=== PATIENT | female | born 1980 | race African-American/Black ===

== ENCOUNTER 2022-10-28 10:16 | Outpatient (OUT) | payer OTHER, SELFPAY ==
--- NOTE | 2022-10-28 10:23 | ECG_ITS ---
[facility] Test Date: 2022-10-28 Pat Name: Amanda Araiza Department: Room: - Gender: Female Olive Picker: : [id number] Requested By: JORGE DODD Order Number: [id number] Reading MD: VICKY ANTONIO Measurements Intervals Concan Rate: 63 P: 55 GA: 164 QRS: 37 QRSD: 82 T: 14 QT: 393 QTc: 404 Interpretive Statements SINUS RHYTHM No previous ECG available for comparison Electronically Signed On 10-29-2022 7:11:32 EDT by VICKY ANTONIO
--- NOTE | 2022-10-28 10:58 | P.GSHP_ITS ---
History of Present Illness History of Present Illness Chief complaint: plantar fasciitis right Narrative: Patient presents for preadmission testing. The patient reports a six-month history of right heel pain without specific trauma or injury. She states she has done home stretching, inserts for her shoes, and an injection which provides no relief. She states her pain is worse after sitting for long periods of time and then standing.She will occasionally take Motrin or Tylenol to attempt pain relief. She denies numbness, tingling, weakness, or any other complaints. Review of Systems ROS Narrative REVIEW OF SYSTEMS: Negative except as stated in HPI, ten or more systems reviewed. Constitutional: No fever , chills, weakness ENT: No sore throat or epistaxis Cardiovascular: No edema, chest pain, palpitations, or activity intolerance Respiratory: No shortness of breath, cough, or wheezing Gastrointestinal: No abdominal pain, constipation, diarrhea, or vomiting Genitourinary: No dysuria or hematuria Neurological: No numbness, tingling, weakness, or headache Psychiatric: No mood changes PFSH PFSH Medical History (Updated 10/28/22 @ 10:42 by Mariola Holcomb NP) Surgical History (Updated 10/28/22 @ 10:42 by Mariola Holcomb NP) Family History (Updated 10/28/22 @ 10:42 by Mariola Holcomb NP) Other Clear cell sarcoma Family history of breast cancer Family history of diabetes mellitus Family history of heart disease Family history of hypertension Family history of lung cancer Family history of prostate cancer Social History (Updated 10/28/22 @ 10:38 by Mariola Holcomb NP) Within the past year, how often did you have a drink containing alcohol: 2-4 times a month Smoking status: Never smoker Non-prescribed substance use: denies use 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 Highest level of school completed/degree received: high school graduate Meds Home Medications and Allergies Allergies Allergy/AdvReac Type Severity Reaction Status Date / Time No Known Drug Allergies Allergy Verified 10/28/22 10:36 Exam Narrative Exam Narrative: Constitutional: Awake, alert, comfortable, well-appearing, nontoxic, interactive, vital signs as charted Head: Normocephalic, atraumatic Eyes: Conjunctiva and lids normal to inspection, pupils normal ENT: Tympanic membranes pearly dailey, nonerythematous, noninjected, naris patent, posterior oropharynx clear, oral mucosa moist Neck: Supple, normal appearance, normal range of motion, no meningeal signs, no lymphadenopathy Respiratory: No respiratory distress, breath sounds clear Cardiovascular: Regular rate and rhythm, strong and regular heart tones Abdomen: Nontender, normal bowel sounds, soft, no CVA tenderness Musculoskeletal: Normal gait, no swelling or edema Skin: No rashes or induration, no lesions, only visible skin inspected Neuro: No neurological deficits, normal sensation Psychiatric: Oriented ?3, normal affect Assessment and Plan Assessment and Plan (1) Equinus contracture of right ankle: (2) Plantar fasciitis of right foot: Plan Right endoscopic plantar fasciotomy and gastrocnemius recession scheduled with Dr. Leon 11/08/2022.
[2022-10-28 11:34] LABS: Anion Gap 11.8; BUN Creatinine Ratio 14.3; Calcium 8.5 mg/dL (8.5-10.1); Carbon Dioxide 29.1 mmol/L (21.0-32.0); Chloride 105 mmol/L (98-107); Estimated GFR (African America >60 (>=60); Estimated GFR (Non-African Ame >60 (>=60); Glucose 95 mg/dL (74-106); Potassium 3.9 mmol/L (3.5-5.1); Sodium 142 mmol/L (136-145)
== END 2022-10-28 10:17 | disposition home or self-care (01) ==
PROVIDERS: Podiatrist Foot & Ankle Surgery
DX: Z01.812 Encounter for preprocedural laboratory examination (principal); Z01.818 Encounter for other preprocedural examination; Z01.810 Encounter for preprocedural cardiovascular examination; M72.2 Plantar fascial fibromatosis; M24.571 Contracture, right ankle; I10 Essential (primary) hypertension
CPT/HCPCS: 36415; 80048; 93005; G0463

== ENCOUNTER 2022-11-08 06:28 | Day surgery (SDC) | payer OTHER, SELFPAY ==
[2022-10-28 10:38] VITALS: BP 118/87; PULSE 69; RESP 14; TEMP 36.6; O2SAT 100; BMI 43.3
[2022-11-08] VITALS (14 sets, daily range): BP systolic 104–141; BP diastolic 66–89; PULSE 62–97; RESP 13–28; TEMP 36.1–36.4; O2SAT 98–100; BMI 43.2
[2022-11-08 06:51] LABS: Glucometer 95 mg/dL (74-106)
[2022-11-08] MEDS: LACTATED RINGER'S SOLUTION 1,000 ML 50 ML IV (07:09)
[2022-11-08] MEDS: CEFAZOLIN SODIUM/DEXTROSE,ISO 2 GM/50 ML PIGGYBACK IV (07:40)
[2022-11-08] MEDS: BUPIVACAINE HCL 0.5% PF 50 MG/10 ML VIAL 20 ML INJ (08:59)
[2022-11-08] MEDS: HYDROMORPHONE HCL 0.5 MG/0.5 ML SYRINGE IV (09:15)
[2022-11-08 09:25] LABS: Glucometer 104 mg/dL (74-106)
[2022-11-08] MEDS: MEPERIDINE HCL/PF 25 MG/ML VIAL IVP (09:28)
--- NOTE | 2022-11-08 09:40 | PC.NURSE ---
Patient's surgical site is clean dry and intact. toes are cool and she can move them.
[2022-11-08] MEDS: OXYCODONE HCL 5 MG TABLET PO (09:44)
--- NOTE | 2022-11-08 09:46 | PC.NURSE ---
oral pain medication given at this time.
--- NOTE | 2022-11-08 10:00 | PC.NURSE ---
Pain is tolerable for patient at this time. rating it at a 6
--- NOTE | 2022-11-08 10:24 | PM.ORONB ---
Brief Operative Note Date of procedure: 11/08/22 Pre-op diagnosis: right plantar fasciitis and equinus Post-op diagnosis: same Procedure: PROCEDURE PERFORMED: Right endoscopic plantar fasciotomy and Cornelio gastrocnemius/synovial recession PROCEDURE IN DETAIL: Patient was identified in pre op and consent was reviewed. Correct side and site were identified and marked. Pre-op antibiotics were started. Patient was brought to OR suite and place on table in a supine position. General anesthesia was administered. Tourniquet applied. Operative extremity was prepped and draped in usual sterile fashion. Formal time-out was performed and the foot/ankle were exsanguinated and tourniquet inflated. A longitudinal incision over the medial aspect of the calf two finger breadths posterior to the posterior aspect of tibia was performed. Combination sharp and blunt dissection with all bleeders being coagulated gained access to the gastrocnemius aponeurosis. Once the aponeurosis was isolated a speculum was inserted from the medial to lateral position just superficial to the aponeurosis. The speculum allowed full visualization of the aponeurosis and the foot was held in maximal dorsiflexed position. A fifteen blade was used to transversely incise the gastrocnemius fascia to two separate location (one proximal and one distal) followed by release of the soleus fascia. 10 degrees of ankle joint dorsiflexion was obtained. The area was flushed with copious sterile saline and skin was closed in layers. Stab incision over the medial aspect of the in-step at the glabrous skin junction was used followed by blunt dissection and the medial band of the plantar fascia was identified. Trochar and cannula were then placed medial to lateral. A lateral stab incision was made to allow passage of the trochar and cannula. Camera was inserted into the lateral portal and a hook blade was placed into the medial portal. 50% of the plantar fascia was released and healthy muscle was noted. The site was flushed with saline and instrumentation was removed. Closure with nylon suture was then undertaken. A dry sterile dressing was placed followed by CAM boot. patient tolerated the procedure and anesthesia well and was transported to the recovery room with vital signs stable and vascular status intact to the right foot. POSTOPERATIVE PLAN: Discharge home under family's care Post op instructions provided verbally and written prescription(s) were placed in chart WBAT in cam boot for to three weeks Follow-up in 12-3 week Implants: none Anesthesia: GETA Surgeon: Murali Leon Cellular Equipment Installer: Milad Velasquez Estimated blood loss (mL): 10 Pathology: none sent Condition: stable Disposition: PACU Preoperative Details Reason for procedure: patient is a 42-year-old female was had several months of right plantar heel pain despite nonsurgical treatment. Nonsurgical treatment has included calf stretching, meloxicam, rice therapy, night splints, corticosteroid injections, shoe and activity modification. Patient is had persistent symptoms for over a year and a MRI confirmed the diagnosis of plantar fasciitis. At a recent appointment we discussed potential risks and benefits of surgical versus nonsurgical treatment and the patient wished to proceed with surgical treatment.
== END 2022-11-08 10:55 | disposition home or self-care (01) ==
PROVIDERS: Visit Provider Podiatrist Foot & Ankle Surgery
PROC: (CPT 27687; principal; 2022-11-08 07:30)
DX: M72.2 Plantar fascial fibromatosis (principal); M24.571 Contracture, right ankle; I10 Essential (primary) hypertension
CPT/HCPCS: 27687; 29893; 36415; 82948; 96372; J0702; J1170; J2704

== ENCOUNTER 2023-03-26 10:03 | Emergency (ER) | payer OTHER, SELFPAY ==
[2023-03-26 10:17] VITALS: BP 129/88; PULSE 78; RESP 18; TEMP 37.3; O2SAT 98; BMI 42.3
--- NOTE | 2023-03-26 10:25 | ED_ITS ---
HPI - Female Genitourinary General Chief complaint: Urogenital-Female Stated complaint: UTI COMPLAINTS Time Seen by Provider: 03/26/23 10:14 Source: patient Mode of arrival: walk-in Limitations: no limitations History of Present Illness HPI Narrative: Patient diagnosed with UTI and started on antibiotic Feb 22. She completed the course of antibiotics but it never really felt like it was completely treated . She said that the PCP sent out the urine and since she did not get a call back, she figured that the culture did not show anything unusual. She had blood in her urine this morning and - since she had a hysterectomy and no longer gets menstrual periods - she decided to come get it check out. No fever or vomiting. No flank pain or abdominal pain. Related Data Previous Rx's Medication Instructions Recorded ciprofloxacin HCl 500 mg tablet 500 mg PO BID #10 tabs 03/26/23 (Cipro) phenazopyridine 200 mg tablet 200 mg PO Q8H PRN dysuria #6 tabs 03/26/23 (Pyridium) Allergies Allergy/AdvReac Type Severity Reaction Status Date / Time No Known Drug Allergies Allergy Verified 03/26/23 10:17 [facility] Medical History (Updated 03/26/23 @ 11:29 by Rod Rodriguez) COVID-19 ?U07.1 - COVID-19 (ICD-10) Equinus contracture of right ankle ?M24.571 - Contracture, right ankle (ICD-10) Plantar fasciitis of right foot ?M72.2 - Plantar fascial fibromatosis (ICD-10) Surgical History (Updated 10/28/22 @ 10:42 by Mariola Holcomb NP) History of bilateral salpingectomy ?Z90.79 - Acquired absence of other genital organ(s) (ICD-10) History of endometrial ablation ?Z98.890 - Other specified postprocedural states (ICD-10) History of hysterectomy ?Z90.710 - Acquired absence of both cervix and uterus (ICD-10) History of laparoscopy ?Z98.890 - Other specified postprocedural states (ICD-10) History of wisdom tooth extraction ?K08.409 - Partial loss of teeth, unspecified cause, unspecified class (ICD- 10) Family History (Updated 10/28/22 @ 10:42 by Mariola Holcomb NP) Other Clear cell sarcoma Family history of breast cancer Family history of diabetes mellitus Family history of heart disease Family history of hypertension Family history of lung cancer Family history of prostate cancer Social History (Updated 10/28/22 @ 10:38 by Mariola Holcomb NP) Within the past year, how often did you have a drink containing alcohol: 2-4 times a month Smoking status: Never smoker Non-prescribed substance use: denies use 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 afebrile General: Well-appearing and in no apparent distress. Skin: Warm, dry, no pallor noted. No rash. Eye: Pupils are equal, round and EOMI. No scleral icterus. Cardiovascular: Regular Rate and Rhythm without murmur, gallop or rub. Respiratory: No accessory muscle use or respiratory distress. Lungs are clear to auscultation, no wheezing, rales or rhonchi Back: No CVA tenderness GI: Abdomen is soft, non-distended. Normal bowel sounds. No masses appreciated. No tenderness to palpation. No rebound, guarding, or rigidity noted. Neurological: A&O x4. No cranial nerve dysfunction observed. No truncal ataxia. Moves all extremities. Sensation intact. Psychiatric: Cooperative and interactive. Normal mood and affect. Constitutional Vital Signs, click to edit/add: Last Vital Signs Temp 99.1 F 03/26/23 10:17 Pulse 78 03/26/23 10:17 Resp 18 03/26/23 10:17 BP 129/88 03/26/23 10:17 Pulse Ox 98 03/26/23 10:17 Course Vital Signs Vital signs: Vital Signs Temperature 99.1 F 03/26/23 10:17 Pulse Rate 78 03/26/23 10:17 Respiratory Rate 18 03/26/23 10:17 Blood Pressure 129/88 03/26/23 10:17 Pulse Oximetry 98 03/26/23 10:17 Temperature 99.1 F 03/26/23 10:17 Pulse Rate 78 03/26/23 10:17 Respiratory Rate 18 03/26/23 10:17 Blood Pressure 129/88 03/26/23 10:17 Pulse Oximetry 98 03/26/23 10:17 MDM - Female Genitourinary MDM Narrative Medical decision making narrative: Urine sent for testing. UA reveals early urinary tract infection. Patient discharged home with prescriptions for pyridium and cipro. We will review urine culture and contact the patient if treatment needs to be altered. . Lab Data Attestation: I reviewed the patient's lab results. Labs: Lab Results 03/26/23 Range/Units 10:40 Urine Color Yellow (YELLOW) Urine Clarity Clear (CLEAR) Urine pH 6.0 (5.0-9.0) Ur Specific Viola 1.025 (1.005-1.025) Urine Protein Negative (NEG/TRACE) mg/dL Urine Glucose (UA) Negative (NEGATIVE) mg/dL Urine Ketones Negative (NEGATIVE) mg/dL Urine Occult Blood Negative (NEGATIVE) Urine Nitrite Negative (NEGATIVE) Urine Bilirubin Negative (NEGATIVE) Urine Urobilinogen 0.2 (0.2-1.0) EU/dL Ur Leukocyte Esterase Small A (NEGATIVE) Urine RBC None seen (0-2) #/HPF Urine WBC 2-5 A (NONE SEEN) #/HPF Ur Squamous Epith Cells Few A (NONE/RARE) #/LPF Urine Crystals None seen (None Seen) #/HPF Urine Bacteria None seen (NONE SEEN) #/HPF Urine Casts None seen (NONE SEEN) #/LPF Urine Mucus Trace A (NONE SEEN) Ur Culture Indicated? No Discharge Plan Discharge Chief Complaint: Urogenital-Female Clinical Impression: Urinary tract infection Patient Disposition: Home, Self-Care Time of Disposition Decision: 11:29 Prescriptions / Home Meds: New ciprofloxacin HCl [Cipro] 500 mg tablet 500 mg PO BID Qty: 10 0RF phenazopyridine [Pyridium] 200 mg tablet 200 mg PO Q8H PRN (Reason: dysuria) Qty: 6 0RF Instructions: Urinary Tract Infection in Women (ED) Stand Alone Forms: Portal Instructions Referrals: Physician,Non-Staff, MD [Primary Care Provider] - 1 week
[2023-03-26 10:56] LABS: Bilirubin Urine NEGATIVE (NEGATIVE); Blood Urine NEGATIVE (NEGATIVE); Clarity Urine CLEAR (CLEAR); Color Urine YELLOW (YELLOW); Glucose Urine UA NEGATIVE (NEGATIVE); Ketones Urine NEGATIVE (NEGATIVE); Leukocyte Esterase Urine SMALL (NEGATIVE); Nitrite Urine NEGATIVE (NEGATIVE); Protein Urine NEGATIVE (NEG/TRACE); Specific Gravity Urine 1.025 (1.005-1.025); Urobilinogen Urine 0.2 EU/dL (0.2-1.0)
[2023-03-26 10:59] LABS: Urine Microscopic Indicated YES
[2023-03-26 11:04] LABS: Bacteria Urine NONE SEEN #/HPF (NONE SEEN); Mucus Urine TRACE (NONE SEEN); RBC Urine NONE SEEN #/HPF (0-2); Squamous Epithelial Cell Urine FEW #/LPF (NONE/RARE)
[2023-03-26 11:05] LABS: Cast Seen? NONE SEEN #/LPF (NONE SEEN); Crystals Seen? None Seen #/HPF (None Seen); Urine Culture Indicated NO
== END 2023-03-26 11:46 | disposition home or self-care (01) ==
PROVIDERS: Emergency Provider Emergency Medicine
DX: N39.0 Urinary tract infection, site not specified (principal); Z90.710 Acquired absence of both cervix and uterus; Z86.16 Personal history of COVID-19; Z90.79 Acquired absence of other genital organ(s); Z98.890 Other specified postprocedural states
CPT/HCPCS: 81001; 87086; 99283

== ENCOUNTER 2023-12-19 08:27 | Emergency (ER) | payer OTHER, SELFPAY ==
[2023-12-19 08:51] VITALS: BP 106/75; PULSE 76; TEMP 37; O2SAT 100; BMI 40.3
--- NOTE | 2023-12-19 09:05 | ED_ITS ---
HPI - Anxiety General Stated Complaint: RIGHT BACK PAIN Time Seen by Provider: 12/19/23 08:56 Source: patient Mode of arrival: walk-in History of Present Illness HPI narrative: The patient is coming with a right lower back pain that started yesterday after she was moving some furniture, mentioned that she had to move the dresser in the beds and after almost few hours she started having some lower back pain, there is no radiation down her legs or numbness or tingling and there is no incontinence of urine or stool The patient was not able to go to work today and that why she came to us she did not try anything [id number] Related Data Home Medications ?Medication ?Instructions ?Recorded ?Confirmed No Known Home Medications 12/19/23 12/19/23 Previous Rx's ?Medication ?Instructions ?Recorded diclofenac sodium 75 mg 75 mg PO BID PRN pain #14 tabs 12/19/23 tablet,delayed release orphenadrine citrate 100 mg 100 mg PO BID PRN muscle spasm #14 12/19/23 tablet,extended release tabs Allergies Allergy/AdvReac Type Severity Reaction Status Date / Time No Known Drug Allergies Allergy Verified 03/26/23 10:17 Review of Systems ROS Status of ROS 10 or more systems reviewed and unremark able except as noted in history and below [facility] Medical History (Updated 12/19/23 @ 09:04 by Evelia Castle MD) COVID-19 ?U07.1 - COVID-19 (ICD-10) Equinus contracture of right ankle ?M24.571 - Contracture, right ankle (ICD-10) Plantar fasciitis of right foot ?M72.2 - Plantar fascial fibromatosis (ICD-10) Surgical History (Updated 10/28/22 @ 10:42 by Mariola Holcomb NP) History of wisdom tooth extraction ?K08.409 - Partial loss of teeth, unspecified cause, unspecified class (ICD- 10) History of laparoscopy ?Z98.890 - Other specified postprocedural states (ICD-10) History of bilateral salpingectomy ?Z90.79 - Acquired absence of other genital organ(s) (ICD-10) History of endometrial ablation ?Z98.890 - Other specified postprocedural states (ICD-10) History of hysterectomy ?Z90.710 - Acquired absence of both cervix and uterus (ICD-10) Family History (Updated 10/28/22 @ 10:42 by Mariola Holcomb NP) Other Clear cell sarcoma Family history of breast cancer Family history of diabetes mellitus Family history of heart disease Family history of hypertension Family history of lung cancer Family history of prostate cancer Social History (Updated 10/28/22 @ 10:38 by Mariola Holcomb NP) Within the past year, how often did you have a drink containing alcohol: 2-4 times a month Smoking status: Never smoker Non-prescribed substance use: denies use 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 General: Well-appearing and in no apparent distress. Skin: Warm, dry, no pallor noted. No rash. Head: Normocephalic, atraumatic. Neck: Supple, non-tender. Eye: Pupils are equal, round and EOMI. No scleral icterus. Ears, Nose, Mouth, and Throat: TM are clear, no nasal mucosal hypertrophy. Oral mucosa is moist, no posterior oropharynx erythema, uvula is mid-line Cardiovascular: Regular Rate and Rhythm without murmur, gallop or rub. Respiratory: No accessory muscle use or respiratory distress. Lungs are clear to auscultation, no wheezing, rales or rhonchi Chest Wall: no tenderness Back: No midline thoracic or lumbar vertebral tenderness. No CVA tenderness ,the patient have right paraspinal muscle tenderness mostly toward the hip area and the buttock area Musculoskeletal: normal ROM, no calf or popliteal tenderness, no lower extremity edema/swelling GI: Abdomen is soft, non-distended. Normal bowel sounds. No masses appreciated. No tenderness to palpation. No rebound, guarding, or rigidity noted. Neurological: A&O x4. No cranial nerve dysfunction observed. No truncal ataxia. Moves all extremities. Sensation intact. Psychiatric: Cooperative and interactive. Normal mood and affect. Constitutional Vital Signs, click to edit/add: Last Vital Signs Temp 98.6 F 12/19/23 08:51 Pulse 76 12/19/23 08:51 Resp 16 12/19/23 08:51 BP 106/75 12/19/23 08:51 Pulse Ox 100 12/19/23 08:51 Course Vital Signs Vital signs: Vital Signs Temperature 98.6 F 12/19/23 08:51 Pulse Rate 76 12/19/23 08:51 Respiratory Rate 16 12/19/23 08:51 Blood Pressure 106/75 12/19/23 08:51 Pulse Oximetry 100 12/19/23 08:51 Temperature 98.6 F 12/19/23 08:51 Pulse Rate 76 12/19/23 08:51 Respiratory Rate 16 12/19/23 08:51 Blood Pressure 106/75 12/19/23 08:51 Pulse Oximetry 100 12/19/23 08:51 MDM - Anxiety MDM Narrative Medical decision making narrative: The patient was treated in the ER with Toradol she is coming with a lower back pain that is typical continue to muscle spasm or sprain No alarming symptoms and the patient was educated about the alarming symptoms that we will bring her back to the ER Patient was discharged home with Voltaren and Norflex The patient is to follow up with primary care physician in next 2-3 days or to return to the emergency department should any of the signs or symptoms worsen or new symptoms develop. The patient agrees with the following Diagnosis and Treatment plan and the patient will be discharged home. Discharge Plan Discharge Stand Alone Forms: Work/School Release, Portal Instructions Clinical Impression: Back pain Qualifiers: Back pain location: low back pain Chronicity: acute Back pain laterality: right Sciatica presence: unspecified whether sciatica present Qualified Code(s): M54.50 - Low back pain, unspecified Patient Disposition: Home, Self-Care Time of Disposition Decision: 09:05 Condition: Good Prescriptions / Home Meds: New diclofenac sodium 75 mg tablet,delayed release (DR/EC) 75 mg PO BID PRN (Reason: pain) Qty: 14 0RF orphenadrine citrate 100 mg tablet extended release 100 mg PO BID PRN (Reason: muscle spasm) Qty: 14 0RF No Action No Known Home Medications Print Language: [place] Instructions: Back Pain (ED) Referrals: Physician,Non-Staff, MD [Primary Care Provider] - 1 week Discharge Date/Time: 12/19/23 09:13
[2023-12-19] MEDS: KETOROLAC TROMETHAMINE 60 MG/2 ML VIAL IM (09:11)
== END 2023-12-19 09:13 | disposition home or self-care (01) ==
PROVIDERS: Emergency Provider Emergency Medicine
DX: M54.50 Low back pain, unspecified (principal)
CPT/HCPCS: 96372; 99284; J1885

== ENCOUNTER 2024-04-16 14:03 | Emergency (ER) | payer SELFPAY ==
[2024-04-16 14:08] VITALS: BP 172/98; PULSE 92; TEMP 36.6; O2SAT 96; BMI 40.3
--- NOTE | 2024-04-16 15:17 | ED_ITS ---
HPI HPI - General Adult General Chief complaint: GI Bleed Stated complaint: ABDOMINAL PAIN Time Seen by Provider: 04/16/24 14:18 Source: patient Mode of arrival: walk-in Limitations: no limitations History of Present Illness HPI narrative: Patient is a 43-year-old female who has been having intermittent rectal bleeding since July. Patient lives in [place]. Patient states the bleeding has been coming more frequent when she is only having a bowel movement, she saw blood in the toilet more frequently yesterday and today which alarmed her. Patient called her PCP, she could not get an until after the new year, then she called her health insurance hotline and they told her to come to the ER for evaluation. Patient is not on any blood thinners. Pt denies any type of trauma around the anus or rectum or perineum. No anal intercourse. No foreign bodies in the anus. Patient's had no falls, traumas, no other acute complaints. Patient's had no constipation. No small hard balls, no large hard pieces. No urinary frequency urgency or burning. Patient had no vaginal bleeding. Patient did have a hysterectomy. Patient has never had a colonoscopy. Patient stated she did have twins, she did have a hemorrhoid during her and now she has a small skin flap to the area as far as she is aware of, no obvious hemorrhoids that she knows of. Patient never had any type of rectal anal surgery. No other acute complaints this time. No abdominal pain nausea or vomiting. All systems are negative except as noted/marked. All systems reviewed and otherwise negative. Nurses note and vital signs reviewed and patient is not hypoxic. General: The patient appears well and in no apparent distress. Patient is resting comfortably on cart. Patient is not toxic, lethargic, or listless. Mayelin JIMENEZ was at bedside during the entire rectal exam and evaluation exterior and anterior. Skin: Warm, dry, no pallor noted. There is no rash noted. No petechiae, purpura. Head: Normocephalic, atraumatic Eye: Normal conjunctiva, no drainage, EOMI. PERRL Ears, Nose, Mouth, and Throat: oral mucosa is moist. Nares patent. Mouth without vesicles. Cardiovascular: Regular Rate and Rhythm, no murmur, gallop, rub Respiratory: Patient is in no distress, no accessory muscle use, lungs are clear to auscultation, no wheezing, rales or rhonchi Back: non-tender, no CVA tenderness bilaterally to percussion. No CT LS midline pain GI: Obese, no tenderness to palpation, no masses appreciated. No suprapubic tenderness to palpation. No rebound, guarding, or rigidity noted. No distenti on. Rectal; Mayelin RN was at bedside during the entire procedure. Exterior evaluation showed 1 small skin flap/minimal hemorrhoid noted to the 2 o'clock position, no other signs of perirectal or perianal abscess. No pilonidal cyst. Digital exam showed no mass, no obstruction, no stool in the rectal vault. Patient had no significant pain during rectal evaluation. No signs of obvious fissure or fistula. No other acute complaints. Hemoccult done. No stool was obtained during digital exam. Entire procedure with no difficulty. No bleeding occurred during procedure. Musculoskeletal: Patient has full range of motion of all of the extremities, no motor, sensory, or focal neurological deficits Neurological: A&O x4, normal speech Psychiatric: Cooperative Related Data Home Medications ?Medication ?Instructions ?Recorded ?Confirmed No Known Home Medications 12/19/23 04/16/24 Previous Rx's ?Medication ?Instructions ?Recorded diclofenac sodium 75 mg 75 mg PO BID PRN pain #14 tabs 12/19/23 tablet,delayed release orphenadrine citrate 100 mg 100 mg PO BID PRN muscle spasm #14 12/19/23 tablet,extended release tabs Allergies Allergy/AdvReac Type Severity Reaction Status Date / Time No Known Drug Allergies Allergy Verified 03/26/23 10:17 Opioid HPI Opioid Management Most Recent Opioid Data: Last Pain Scale 8 12/19/23 09:11 12/19/23 [facility] Medical History (Updated 04/16/24 @ 15:17 by Zi Strickland MD) COVID-19 ?U07.1 - COVID-19 (ICD-10) Equinus contracture of right ankle ?M24.571 - Contracture, right ankle (ICD-10) Plantar fasciitis of right foot ?M72.2 - Plantar fascial fibromatosis (ICD-10) Surgical History (Updated 10/28/22 @ 10:42 by Mariola Holcomb NP) History of wisdom tooth extraction ?K08.409 - Partial loss of teeth, unspecified cause, unspecified class (ICD- 10) History of laparoscopy ?Z98.890 - Other specified postprocedural states (ICD-10) History of bilateral salpingectomy ?Z90.79 - Acquired absence of other genital organ(s) (ICD-10) History of endometrial ablation ?Z98.890 - Other specified postprocedural states (ICD-10) History of hysterectomy ?Z90.710 - Acquired absence of both cervix and uterus (ICD-10) Family History (Updated 10/28/22 @ 10:42 by Mariola Holcomb NP) Other Clear cell sarcoma Family history of breast cancer Family history of diabetes mellitus Family history of heart disease Family history of hypertension Family history of lung cancer Family history of prostate cancer Social History (Updated 10/28/22 @ 10:38 by Mariola Holcomb NP) Within the past year, how often did you have a drink containing alcohol: 2-4 times a month Smoking status: Never smoker Non-prescribed substance use: denies use Previous occupational history: [employer] work Highest level of school completed/degree received: high school graduate Little interest or pleasure in doing things: not at all Feeling down, depressed, or hopeless: not at all Exam Constitutional Vital Signs, click to edit/add: Last Vital Signs Temp 97.9 F 04/16/24 14:08 Pulse 92 H 04/16/24 14:08 Resp 18 04/16/24 14:08 BP 172/98 H 04/16/24 14:08 Pulse Ox 96 04/16/24 14:08 Course Vital Signs Vital signs: Vital Signs Temperature 97.9 F 04/16/24 14:08 Pulse Rate 92 H 04/16/24 14:08 Respiratory Rate 18 04/16/24 14:08 Blood Pressure 172/98 H 04/16/24 14:08 Pulse Oximetry 96 04/16/24 14:08 Temperature 97.9 F 04/16/24 14:08 Pulse Rate 92 H 04/16/24 14:08 Respiratory Rate 18 04/16/24 14:08 Blood Pressure 172/98 H 04/16/24 14:08 Pulse Oximetry 96 04/16/24 14:08 Medical Decision Making MDM Narrative Medical decision making narrative: Patient understands that she needs to follow-up with a GI physician to have a sigmoidoscopy or a colonoscopy. Patient was given Dr. Tomasa Foy number to follow-up with. Patient is from [place]. Patient cannot get into her PCP until after the New Year's, so patient came to the ER for evaluation. Patient is low follow-up with GI referral in the [place] area, she was given a [facility] follow- up as well. Patient will continue to increase fluids. Education of rectal blee ding was done at bedside and on discharge paper. No acute findings during physical exam or rectal exam. Discharge Plan Discharge Chief Complaint: GI Bleed Clinical Impression: Rectal bleeding Patient Disposition: Home, Self-Care Time of Disposition Decision: 15:15 Condition: Fair Prescriptions / Home Meds: No Action No Known Home Medications diclofenac sodium 75 mg tablet,delayed release (DR/EC) 75 mg PO BID PRN (Reason: pain) Qty: 14 0RF orphenadrine citrate 100 mg tablet extended release 100 mg PO BID PRN (Reason: muscle spasm) Qty: 14 0RF Print Language: Slovenian Instructions: Rectal Bleeding (ED) Additional Instructions: Follow-up with your PCP and a referral to GI specialist in [place]. This is the physician that we were speaking of who works at [facility], Dr. Perez. Return back to the ER if you have continuous hemorrhaging or significant amount of blood loss, lightheaded, dizzy, short of breath, fatigue, weak, or any other acute concerns. Referrals: MARINE PEREZ [Physician] - 1 week Physician,Non-Staff, MD [Primary Care Provider] - 1 week
[2024-04-16 15:40] LABS: Internal Control Within Normal Limits; Occult Blood Negative
== END 2024-04-16 15:54 | disposition home or self-care (01) ==
PROVIDERS: Emergency Provider Emergency Medicine
DX: K62.5 Hemorrhage of anus and rectum (principal); Z90.710 Acquired absence of both cervix and uterus
CPT/HCPCS: 99283; G0328

== ENCOUNTER 2024-05-09 12:55 | Outpatient (OUT) | payer OTHER, SELFPAY ==
--- NOTE | 2024-05-09 12:57 | XR_ITS ---
The [address] [address] Patient Name: JAZLYN BARCLAY MRN: [id number] date: 1980 Sex: F Assigned Patient Location: [facility] Current Patient Location: Accession/Order Number: [id number] Exam Date: 05/09/2024 13:02 Report Date: 05/10/2024 07:37 At the request of: JORGE DODD Procedure: XR foot LT min 3V PROCEDURE: XR foot LT min 3V COMPARISON: None. HISTORY: Left Foot Pain FINDINGS: BONES:No acute fracture or dislocation. Mild plantar enthesopathic spurring of the calcaneus. Chronic bone fragments medial navicular and lateral cuboid SOFT TISSUES:Negative. No visible soft tissue swelling. EFFUSION:None visible. OTHER: Negative. XR/XR foot LT min 3V IMPRESSION: No acute abnormality Electronically authenticated by: TEJAS BLOOM Date: 05/10/2024 07:37
--- OUTSIDE RECORDS SUMMARY | 2024-05-09 13:15 | XMS_ITS | CCD ---
Author Organization [facility] Care Team Providers Care Wood Type Finisher Name Role Phone HUGH GREEN Admitting Unavailable HUGH GREEN Attending Unavailable JENNIFER, DR CHRIS Santos Consulting Unavailable HUGH GREEN Consulting Unavailable HUGH GREEN Admitting Unavailable HUGH GREEN Attending Unavailable REQUEST, NONE LISTED Primary Care Unavaila HUGH Mckinnon Consulting Unavailable Kellie Eaton Unavailable Mónica Petar ADAMS Primary Care Provider VALERIE BERNAL Referring Unavailable MÓNICA, MUHAMID M Primary Care Unavailable GERTRUDE JACQUES Referring Unavailable MÓNICA, MUHAMID M Primary Care Unavailable DIEUDONNE, MENNATALLAH M Referring Unavailable MÓNICA, MUHAMID M Primary Care Unavailable MÓNICA, MUHAMID M Referring Unavailable MÓNICA, MUHAMID M Primary Care Unavailable MÓNICA, MUHAMID M Referring Unavailable MÓNICA, MUHAMID M Primary Care Unavailable MÓNICA, MUHAMID M Attending Unavailable MÓNICA, MUHAMID M Referring Unavailable MÓNICA, MUHAMID M Primary Care Unavailable MÓNICA, MUHAMID M Attending Unavailable MÓNICA, MUHAMID M Referring Unavailable MÓNICA, MUHAMID M Primary Care Unavailable GERTRUDE JACQUES Attending Unavailable MÓNICA, MUHAMID M Referring Unavailable MÓNICA, MUHAMID M Primary Care Unavailable DIEUDONNE, MENNATALLAH M Attending Unavailable MÓNICA, MUHAMID M Referring Unavailable MÓNICA, MUHAMID M Primary Care Unavailable SHANDRA NAILS Attending Unavailable PRAKASH AUGUSTE Referring Unavailable MÓNICA, MUHAMID M Primary Care Unavailable Medications Current Medications Medication Drug Class(es) Dates Sig (Normalized) Sig (Original) buPROPion hydrochloride 75 mg oral tablet (2 sources) Aminoketone Start: 08-19-2023 End: 05-03-2024 take 1 tablet by mouth in the morning, then take 1 tablet by mouth at bedtime buPROPion (WELLBUTRIN) 75 mg tablet Indications: Other fatigue Take 1 tablet (75 mg total) by mouth in the morning and 1 tablet (75 mg total) before bedtime. 60 tablet 08/19/2023 05/03/2024 Discontinued (Patient Stopped On Own) doxycycline hyclate 100 mg oral tablet (4 sources) Tetracycline-class Drug Start: 06-27-2023 End: 07-04-2023 take 1 tablet by mouth in the morning, then take 1 tablet by mouth at bedtime doxycycline (VIBRA-TABS) 100 mg tablet Take 1 tablet (100 mg total) by mouth in the morning and 1 tablet (100 mg total) before bedtime. Do all this for 7 days. 14 tablet 0 06/27/2023 07/04/2023 Active ergocalciferol 1.25 mg oral capsule (11 sources) Provitamin D2 Compound Start: 04-12-2023 End: 05-03-2024 take 1 capsule by mouth every week ergocalciferol (DRISDOL) 1,250 mcg (50,000 unit) capsule Take 1 capsule by mouth once a week 8 capsule 06/02/2023 05/03/2024 Discontinued (Patient Stopped On Own) metroNIDAZOLE 0.0075 mg/mg vaginal gel (14 sources) Nitroimidazole Antimicrobial Start: 07-04-2023 End: 05-03-2024 metroNIDAZOLE (Metrogel VaginaL) 0.75 % (37.5mg/5 gram) vaginal gel Insert 1 applicator into the vagina 2 (two) times a week. 70 g 07/04/2023 05/03/2024 Discontinued (Therapy completed) Start: 07-04-2023 metroNIDAZOLE (Metrogel VaginaL) 0.75 % (37.5mg/5 gram) vaginal gel Insert 1 applicator into the vagina 2 (two) times a week. 70 g 0 07/04/2023 Active Start: 06-27-2023 End: 07-02-2023 metroNIDAZOLE (Metrogel Vagi naL) 0.75 % (37.5mg/5 gram) vaginal gel Insert 1 applicator into the vagina nightly for 5 days. 70 g 0 06/27/2023 07/01/2023 Discontinued (Error) Start: 06-20-2023 End: 05-03-2024 metroNIDAZOLE (MetrogeL) 1 % gel Indications: Abnormal uterine bleeding (AUB) , Vaginal infection Apply 1 Application topically 2 (two) times a week. 45 g 06/20/2023 05/03/2024 Discontinued (Therapy completed) Start: 05-18-2023 End: 05-25-2023 metroNIDAZOLE (Metrogel Vagi naL) 0.75 % (37.5mg/5 gram) vaginal gel Indications: Bacterial vaginosis Insert 1 applicator into the vagina once daily at bedtime for 7 days. 70 g 0 05/18/2023 05/25/2023 Active sod sulf-pot chloride-mag sulf 1.479-0.188- 0.225 gram tablet (1 source) Start: 05-03-2024 sod sulf-pot c hloride-mag sulf 1.479-0.188- 0.225 gram tablet Indications: Blood in stool Please see instructional sheet given by physicians office. 24 tablet 05/03/2024 Active UNABLE TO FIND (1 source) UNABLE TO FIND I nject 1 INJECTION under the skin every 30 (thirty) days. Vitamin D injection monthly Active vitamin b12 1 mg/ml injectable solution (1 source) Vitamin B12 cyanocobalamin ( VITAMIN B-12) 1,000 mcg/mL injection Inject 1 mL (1,000 mcg total) into the appropriate muscle every 30 (thirty) days. Active Problems Active Problems Problem Classification Problem Date Documented Da te Episodic/Chronic Diabetes mellitus without complication (1 source) Hyperglycemia, unspecified; Translations: [Hyperglycemia, unspecified] Onset: 04-11-2023 Episodic Gastrointestinal hemorrhage (6 sources) Hematochezia; Translations: [Melena] Onset: 05-03-2024 04-20-2024 Episodic Genitourinary symptoms and ill-defined conditions (4 sources) Blood in urine; Translations: [Hematuria, unspecified] Onset: 04-11-2023 04-28-2023 Episodic Immunizations and screening for infectious disease (1 source) Encounter for screening for infections with a predominantly sexual mode of transmission; Translations: [Encounter for screening for infections with a predominantly sexual mode of transmission] Onset: 04-12-2023 Episodic Other and unspecified benign neoplasm (2 sources) Lipoma of left lower limb; Translations: [Benign lipomatous neoplasm of skin and subcutaneous tissue of left leg] 04-28-2023 Episodic Other and unspecified benign neoplasm (1 source) Benign lipomatous neoplasm of skin and subcutaneous tissue of left leg; Translations: [Benign lipomatous neoplasm of skin and subcutaneous tissue of left leg] Onset: 06-22-2023 Episodic Other connective tissue disease (4 sources) Plantar fascial fibromatosis; Translations: [PLANTAR FASCIAL FIBROMATOSIS] Onset: 07-09-2022 Episodic Other female genital disorders (2 sources) Abnormal uterine and vaginal bleeding, unspecified; Translations: [Abnormal uterine and vaginal bleeding, unspecified] Onset: 06-20-2023 Chronic Other screening for suspected conditions (not mental disorders or infectious disease) (1 source) Encounter for screening mammogram for malignant neoplasm of breast; Translations: [Encounter for screening mammogram for malignant neoplasm of breast] Onset: 04-28-2023 Episodic Unclassified (1 source) Suspicious Skin Lesion Onset: 06-21-2023 Unclassified (1 source) Establish Care Onset: 06-20-2023 Unclassified (1 source) Bladder Problems Onset: 05-18-2023 Past or Other Problems Problem Classification Problem Date Documented Date Episodic/Chronic Bacterial infection; unspecified site (1 source) Other specified bacterial agents as the cause of diseases classified elsewhere; Translations: [Other specified bacterial agents as the cause of diseases classified elsewhere] Onset: 05-18-2023 Episodic E Codes: Adverse effects of medical drugs (10 sources) Adverse reaction to caffeine; Translations: [Adverse effect of caffeine, initial encounter] Onset: 10-31-2019 10-31-2019 Episodic Inflammatory diseases of female pelvic organs (2 sources) Bacterial vaginosis; Translations: [Acute vaginitis] Onset: 05-18-2023 05-18-2023 Episodic Malaise and fatigue (2 sources) Other fatigue; Translations: [Fatigue] Onset: 08-19-2023 Episodic Mood disorders (10 sources) Mood disorders Onset: 02-22-2023 02-22-2023 Noninfectious gastroenteritis (10 sources) Gastroenteritis; Translations: [Noninfective gastroenteritis and colitis, unspecified] Onset: 10-31-2019 10-31-2019 Episodic Other connective tissue disease (4 sources) Pain in right foot; Translations: [PAIN IN RIGHT FOOT] Onset: 03-23-2022 Episodic Other lower respiratory disease (10 sources) Cough; Translations: [Cough] Onset: 05-19-2021 05-19-2021 Episodic Other upper respiratory infections (10 sources) Viral upper respiratory tract infection; Translations: [Acute upper respiratory infection, unspecified] Onset: 05-19-2021 05-19-2021 Episodic Spondylosis; intervertebral disc disorders; other back problems (10 sources) Sciatica; Translations: [Sciatica, unspecified side] Onset: 01-25-2019 01-25-2019 Episodic Unclassified (10 sources) Onset: 10-31-2019 10-31-2019 Results Test Name Value Interpretation Reference Range Facil ity Surgical Pathologyon 024 Surgical Pathology Normal [facility] Comment on above: Result Comment: [facility] [address] [place] [address] Surgical Pathology Consultation Patient Name:JAZLYN ARAIZA:1980 (Age: 43)Gender:FTaken:4Reported:06/28/2023hysician(s):Beverly Chau MD ([phone])Copy To: Rec. #:[id number]: #[id number] Final Pathologic Diagnosis Soft tissue, left lower extremity, excision: Lipoma. Report Electronically Signed Out /06/28/2023silver Mendoza MD Interpretation performed at [facility], [address] [place] [address], License number: [id number]. Clinical History Lipoma of left lower extremity D17.24. Gross Description Received in formalin labeled NING, left lower leg are partially encapsulated fragments of shaggy, ragged adipose tissue, 2.5 x 2 x 1 cm in aggregate. The capsular surfaces are hernandez-pink, membranous and glistening. Nurse Charge Rn sections are submitted in a single cassette. (1, ss, [id number], m1) LUIS DANIEL [facility]/06/22/2023O Specimen(s) Received Left lower extremity Fee Codes(s): 1; 12978 Urogenital Ureaplasma and My coplasma Species by PCRon 06-20-2023 Mycoplasma genitalium Not detected Normal [facility] Comment on above: Result Comment: NOTE INTERPRETIVE INFORMATION: Urogenital Ureaplasma and Mycoplasma Species by PCR A negative result does not rule out the presence of PCR inhibitors in the patient specimen or test-specific nucleic acid in concentrations below the level of detection by this test. This test was developed and its performance characteristics determined by [facility]. It has not been cleared or approved by the [place] Food and Drug Administration. This test was performed in a CLIA certified laboratory and is intended for clinical purposes. Performed By: [facility] [address] [place] [id number] Licensed Physical Therapy Assistant: Guanaco Ross MD, PhD CLIA Number: [id number] Mycoplasma hominis Not detected Normal [facility] Source GENITAL SWAB Normal [facility] Ureaplasma parvum Detected Abnormal [facility] Ureaplasma urealyticum Not detected Normal [facility] MAMM SCREENING BILATERAL W C independent sales representative 04-28-2023 MAMM SCREENING BILATERAL W CAD MAMM SCREENING BILATERAL W CAD EXAM: MAMM SCREENING BILATERAL W CAD, 04/28/2023 2:11 PM CLINICAL INDICATIONS: Screening, Encounter for screening mammogram for malignant neoplasm of breast COMPARISON: 02/10/2022 TECHNIQUE: Bilateral digital tomosynthesis MLO and CC views of the breasts were obtained, with creation of synthetic 2D views. Computer aided detection was utilized. FINDINGS: There are scattered areas of fibroglandular density. There are no suspicious masses, calcifications, or architectural distortions. IMPRESSION: No mammographic evidence of malignancy. Continue annual screening mammography per ACR recommendations. BI-RADS: BI-RADS 1 - Negative Recommendation: Routine screening mammogram in 1 year. Finalized by Joanne Donahue MD on 04/28/2023 3:26 PM 1 b MAMM 1 YR Normal [facility] CHLAMYDIA/GC BY PCRon 2022 CHLAMYDIA/GC BY PCR SPECIMEN SOURCE CERVIX CHLAMYDIA DNA(PCR) Negative (qualifier value) Chlamydia trachomatis not detected by nucleic acid amplification. This does not exclude the possibility of infection because results are dependent on adequate specimen collection. GONORRHOEAE DNA(PCR) Negative (qualifier value) Neisseria gonorrhoeae not detected by nucleic acid amplification. This does not exclude the possibility of infection because results are dependent on adequate specimen collection. Normal [facility] Comment on above: Performed By: #### C #### [facility] ([id number]) [address] [facility], [address] [place] [address] URINALYSISon 04-12-2023 Bilirubin Ql (U) Negative Normal NEG [facility] BLOOD/HGB Negative Normal NEG [facility] Color (U) YELLOW Normal YELLOW [facility] Glucose Ql (U) Negative Normal NEG [facility] Ketones Ql (U) Negative Normal NEG [facility] Leukocyte esterase Test strip Ql (U) Small Abnormal NEG [facility] MUCOUS PRESENT Abnormal NONE [facility] Nitrite Ql (U) Negative Normal NEG [facility] pH (U) 7.0 [pH] Normal 5.0-8.5 [facility] Protein Ql (U) Trace Abnormal NEG [facility] R.B.CELLS 1 /hpf Normal 0-5 [facility] Specific gravity (U) [Rel density] 1.021 Normal 1.003-1.035 [facility] SQUAMOUS EPITHELIUM 2 /hpf Normal 0-5 [facility] TURBIDITY CLEAR Normal CLEAR [facility] Urobilinogen (U) [Mass/Vol] mg/dL Normal <1.1 [facility] W.B.CELLS 4 /hpf Normal 0-5 [facility] URINE CULTUREon 04-12-2023 Bacteria identified Cx Nom (U) CULTURE RESULTS 50-100,000 ORGANISMS/ML NORMAL UROGENITAL OWEN Normal [facility] Comment on above: Performed By: #### 6 30-4 #### [facility] ([id number]) [address] [facility], [address] [place] [address] VAGINITIS PANEL PCRon 2022 VAGINITIS PANEL PCR BACT. VAGINOSIS DNA Not detected (qualifier value) Qualitative results are reported based on detection and quantitation of targeted organism markers which include: Lactobacillus spp. (L. crispatus and L. jensenii), Gardnerella vaginalis, Atopobium vaginae, Bacterial Vaginosis Associated Bacteria-2 (BVAB-2) and Megasphaera-1 CASI SPECIES DNA Not detected (qualifier value) Casi species not detected include: C. albicans, C. tropicalis, C. parapsilosis or C. dubliniensis CASI KRUSEI DNA Not detected (qualifier value) No Csai krusei detected CASI GLABRATA DNA Not detected (qualifier value) No Casi glabrata detected TRICHOMONAS VAG DNA Not detected (qualifier value) No Trichomonas vaginalis detected NOTE BD MAX Vaginal Panel has not been evaluated for patients under 18 years old. Results for these patients should be reviewed and assessed in accordance with clinical presentation to determine patient diagnosis. Normal [facility] Comment on above: Performed By: #### V PPCR #### [facility] ([id number]) [address], [address] [place] [address] CBC AND AUTO DIFFon 1218-20 23 ABSOLUTE BASOPHIL 0.0 X10E9/L Normal 0.0-0.2 [facility] Comment on above: Performed By: #### C BCA, TSHR, CMP, 53554-5, 02804-2 #### [facility] ([id number]) [address], [address] [place] [address] ABSOLUTE NEUTROPHIL 7.8 X10E9/L High 1.5-6.6 [facility] Comment on above: Performed By: #### C BCA, TSHR, CMP, 06959-1, 58507-8 #### [facility] ([id number]) [address], [address] [place] [address] Basophils/100 WBC (Bld) 0.3 % Normal [facility] Comment on above: Performed By: #### C BCA, TSHR, CMP, 83006-0, 56020-5 #### [facility] ([id number]) [address], [address] [place] [address] Eosinophils (Bld) [#/Vol] 0.2 10*3/uL Normal 0.0-0.4 [facility] Comment on above: Performed By: #### C BCA, TSHR, CMP, 97580-8, 43455-5 #### [facility] ([id number]) [address] [address] [place] [address] Eosinophils/100 WBC (Bld) 1.2 % Normal [facility] Comment on above: Performed By: #### C BCA, TSHR, CMP, 75521-8, 92806-1 #### [facility] ([id number]) [address] [address] [place] [address] Erythrocyte distribution width (RBC) [Ratio] 14.4 % Normal 11.5-15.0 [facility] Comment on above: Performed By: #### C BCA, TSHR, CMP, 91952-8, 87986-8 #### [facility] ([id number]) [address] [address] [place] [address] Hematocrit (Bld) [Volume fraction] 41.2 % Normal 35-47 [facility] Comment on above: Performed By: #### C BCA, TSHR, CMP, 99828-9, 54117-5 #### [facility] ([id number]) [address] [address] [place] [address] Hemoglobin (Bld) [Mass/Vol] 13.2 g/dL Normal 11.7-15.5 [facility] Comment on above: Performed By: #### C BCA, TSHR, CMP, 50829-9, 25820-4 #### [facility] ([id number]) [address] [address] [place] [address] Lymphocytes (Bld) [#/Vol] 4.0 10*3/uL High 1.0-3.5 [facility] Comment on above: Performed By: #### C BCA, TSHR, CMP, 28063-3, 24364-8 #### [facility] ([id number]) [address], [address] [place] [address] Lymphocytes/100 WBC (Bld) 31.4 % Normal [facility] Comment on above: Performed By: #### C BCA, TSHR, CMP, 27565-1, 91201-8 #### [facility] ([id number]) [address], [address] [place] [address] MCH (RBC) [Entitic mass] 29.0 pg Normal 27-34 [facility] Comment on above: Performed By: #### C BCA, TSHR, CMP, 17453-2, 39382-6 #### [facility] ([id number]) [address], [address] [place] [address] MCHC (RBC) [Mass/Vol] 32.1 g/dL Normal 32-36 [facility] Comment on above: Performed By: #### C BCA, TSHR, CMP, 47599-5, 17151-9 #### [facility] ([id number]) [address], [address] [place] [address] MCV (RBC) [Entitic vol] 91 fL Normal 80-100 [facility] Comment on above: Performed By: #### C BCA, TSHR, CMP, 47950-2, 91881-0 #### [facility] ([id number]) [address], [address] [place] [address] Monocytes (Bld) [#/Vol] 0.8 10*3/uL Normal 0-0.9 [facility] Comment on above: Performed By: #### C BCA, TSHR, CMP, 84520-6, 51956-5 #### [facility] ([id number]) [address], [address] [place] [address] Monocytes/100 WBC (Bld) 6.3 % Normal [facility] Comment on above: Performed By: #### C BCA, TSHR, CMP, 70427-3, 01770-6 #### [facility] ([id number]) [address] [address] [place] [address] Neutrophils/100 WBC (Bld) 60.8 % Normal [facility] Comment on above: Performed By: #### C BCA, TSHR, CMP, 03013-0, 48345-3 #### [facility] ([id number]) [address] [address] [place] [address] Platelet mean volume (Bld) [Entitic vol] 11.6 fL Normal 7-12 [facility] Comment on above: Performed By: #### C BCA, TSHR, CMP, 70561-0, 40599-3 #### [facility] ([id number]) [address] [address] [place] [address] Platelets (Bld) [#/Vol] 188 10*3/uL Normal 150-450 [facility] Comment on above: Performed By: #### C BCA, TSHR, CMP, 61817-7, 63748-4 #### [facility] ([id number]) [address] [address] [place] [address] RBC COUNT 4.55 X10E12/L Normal 3.80-5.20 [facility] Comment on above: Performed By: #### C BCA, TSHR, CMP, 12958-9, 76610-9 #### [facility] ([id number]) [address] [address] [place] [address] WBC (Bld) [#/Vol] 12.9 10*3/uL High 4.0-11.0 [facility] Comment on above: Performed By: #### C BCA, TSHR, CMP, 00149-5, 08992-3 #### [facility] ([id number]) [address] [address] [place] [address] CHLAMYDIA/GC PCR, Uon 2022 CHLAMYDIA/GC PCR, U SPECIMEN SOURCE CLEAN CATCH MIDSTREAM URINE CHLAMYDIA DNA(PCR) Negative (qualifier value) Chlamydia trachomatis not detected by nucleic acid amplification. This does not exclude the possibility of infection because results are dependent on adequate specimen collection. GONORRHOEAE DNA(PCR) Negative (qualifier value) Neisseria gonorrhoeae not detected by nucleic acid amplification. This does not exclude the possibility of infection because results are dependent on adequate specimen collection. Normal [facility] Comment on above: Performed By: #### C #### [facility] ([id number]) [address] [place] [address], [place] [address] [facility] ([id number]) [address] [place] [address] COMPREHENSIVE METABOLIC PANE [facility] 04-11-2023 Albumin [Mass/Vol] 4.2 g/dL Normal 3.2-5.3 [facility] Comment on above: Performed By: #### C BCA, TSHR, CMP, 43812-3, 85476-9 #### [facility] ([id number]) [address], [address] [place] [address] ALP [Catalytic activity/Vol] 56 U/L Normal 39-130 [facility] Comment on above: Performed By: #### C BCA, TSHR, CMP, 55839-9, 31153-5 #### [facility] ([id number]) [address], [address] [place] [address] ALT [Catalytic activity/Vol] 18 U/L Normal 0-31 [facility] Comment on above: Performed By: #### C BCA, TSHR, CMP, 33223-4, 75542-1 #### [facility] ([id number]) [address], [address] [place] [address] Anion gap [Moles/Vol] 10 mmol/L Normal 5-15 [facility] Comment on above: Performed By: #### C BCA, TSHR, CMP, 60065-5, 18831-5 #### [facility] ([id number]) [address], [address] [place] [address] AST [Catalytic activity/Vol] 16 U/L Normal 0-41 [facility] Comment on above: Performed By: #### C BCA, TSHR, CMP, 74725-2, 00593-3 #### [facility] ([id number]) [address], [address] [place] [address] Bilirubin [Mass/Vol] 0.6 mg/dL Normal 0.3-1.2 [facility] Comment on above: Performed By: #### C BCA, TSHR, CMP, 19425-1, 54598-9 #### [facility] ([id number]) [address], [address] [place] [address] Calcium [Mass/Vol] 9.2 mg/dL Normal 8.5-10.5 [facility] Comment on above: Performed By: #### C BCA, TSHR, CMP, 92617-1, 30886-3 #### [facility] ([id number]) [address], [address] [place] [address] Chloride [Moles/Vol] 104 mmol/L Normal 98-109 [facility] Comment on above: Performed By: #### C BCA, TSHR, CMP, 14890-4, 80535-6 #### [facility] ([id number]) [address], [address] [place] [address] CO2 [Moles/Vol] 25 mmol/L Normal 22-32 [facility] Comment on above: Performed By: #### C BCA, TSHR, CMP, 38094-6, 75454-5 #### [facility] ([id number]) [address], [address] [place] [address] Creatinine [Mass/Vol] 0.75 mg/dL Normal 0.40-1.00 [facility] Comment on above: Result Comment: METH OD TRACEABLE TO IDMS STANDARD Performed By: #### C BCA, TSHR, CMP, 66126-4, 73471-6 #### [facility] ([id number]) [address], [address] [place] [address] eGFR (CKD-EPI) NON-RACE DEPENDENT >90 Normal >59 [facility] Comment on above: Result Comment: Reported eGFR is based on the CKD-EPI 2020 equation that does not use a race coefficient. Performed By: #### C BCA, TSHR, CMP, 00189-0, 07525-1 #### [facility] ([id number]) [address], [address] [place] [address] Glucose [Mass/Vol] 87 mg/dL Normal 65-99 [facility] Comment on above: Performed By: #### C BCA, TSHR, CMP, 40446-3, 38945-1 #### [facility] ([id number]) [address], [address] [place] [address] Potassium [Moles/Vol] 3.5 mmol/L Normal 3.5-5.0 [facility] Comment on above: Performed By: #### C BCA, TSHR, CMP, 98325-5, 48107-2 #### [facility] ([id number]) [address], [address] [place] [address] Protein [Mass/Vol] 7.0 g/dL Normal 6.0-8.0 [facility] Comment on above: Performed By: #### C BCA, TSHR, CMP, 88859-9, 83952-2 #### [facility] ([id number]) [address], [address] [place] [address] Sodium [Moles/Vol] 139 mmol/L Normal 134-146 [facility] Comment on above: Performed By: #### C BCA, TSHR, CMP, 79993-6, 13000-8 #### [facility] ([id number]) [address], [address] [place] [address] Urea nitrogen [Mass/Vol] 10 mg/dL Normal 5-23 [facility] Comment on above: Performed By: #### C BCA, TSHR, CMP, 91154-3, 64330-1 #### [facility] ([id number]) [address], [address] [place] [address] HGB A1C (GLYCO-HGB)on 2022 Glucose [Mass/Vol] 111 mg/dL Normal [facility] Comment on above: Performed By: #### C BCA, TSHR, CMP, 21750-2, 92309-1 #### [facility] ([id number]) [address], [address] [place] [address] HbA1c (Bld) [Mass fraction] 5.5 % Normal 4.4-5.6 [facility] Comment on above: Result Comment: NOTE ADA Guidelines Result HgbA1c Normal : less than 5.7 % Prediabetes : 5.7 % to 6.4 % Diabetes : > 6.4 % Use with caution in patients with abnormal hemoglobin variants as the half-life of red blood cells and in vivo glycation rates are affected. Performed By: #### C BCA, TSHR, CMP, 15995-0, 62194-0 #### [facility] ([id number]) [address], [address] [place] [address] Lipid 1996 panelon Cholesterol [Mass/Vol] 187 mg/dL Normal 150-200 [facility] Comment on above: Performed By: #### C BCA, TSHR, CMP, 34274-8, 13987-6 #### [facility] ([id number]) [address], [address] [place] [address] Cholesterol in HDL [Mass/Vol] 55 mg/dL Normal >39 [facility] Comment on above: Result Comment: HDL <40 mg/dL - High Risk HDL > or = 40mg/dL- Desirable HDL >60 mg/dL - Negative Risk Performed By: #### C BCA, TSHR, CMP, 10705-8, 02117-7 #### [facility] ([id number]) [address], [address] [place] [address] Cholesterol in LDL [Mass/Vol] 109 mg/dL Normal <130 [facility] Comment on above: Result Comment: LDL <100 mg/dL - Desirable LDL >160 mg/dL - High Risk Performed By: #### C BCA, TSHR, CMP, 02667-2, 86543-7 #### [facility] ([id number]) [address], [address] [place] [address] Cholesterol in VLDL [Mass/Vol] 23 mg/dL Normal 0-30 [facility] Comment on above: Performed By: #### C BCA, TSHR, CMP, 29967-2, 17716-0 #### [facility] ([id number]) [address], [address] [place] [address] CHOLESTEROL:HDL 3.4 Normal 1.0-5.0 [facility] Comment on above: Performed By: #### C BCA, TSHR, CMP, 84839-1, 59078-1 #### [facility] ([id number]) [address], [address] [place] [address] Triglyceride [Mass/Vol] 113 mg/dL Normal 27-150 [facility] Comment on above: Performed By: #### C BCA, TSHR, CMP, 77732-5, 74795-7 #### [facility] ([id number]) [address], [address] [place] [address] TSH WITH REFLEXon 04-11-2023 TSH 2.16 uIU/mL Normal 0.49-4.67 [facility] Comment on above: Performed By: #### C JACOB, TSHR, [facility], 29725-9, 35430-8 #### [facility] ([id number]) [address], [facility] [address] [place] [address] Vitamin D+Metabolites [Mass/ Vol]on 04-11-2023 VITAMIN D 25 HYD TOT 16.7 ng/mL Low 30-100 [facility] Comment on above: Result Comment: Vitamin D status 25 [place] Vitamin D Deficiency <20 ng/mL Insufficiency 20-29 ng/mL Sufficiency 30-100 ng/mL Toxicity >100 ng/mL NOTE: A pediatric reference range has not been established by the construction project mgr of this kit. The [place] [employer] recommends a Vitamin D level of = or >20ng/mL in infants and children. Performed By: #### C BCA, TSHR, [facility], 62236-0, 66491-2 #### [facility] ([id number]) [address] [address] MRI ANKLE RT WO CONon 2022 MRI ANKLE RT WO CON EXAM: MRI ANKLE RT W O CON HISTORY: Right ankle and heel pain for 6 months with no recent injury. Pain extends into the arch of the foot. Plantar fasciitis. COMPARISON: Right foot x-rays from 03/23/2022. TECHNIQUE: Multiplanar and multisequence imaging of the right ankle was performed without contrast. FINDINGS: No acute fracture or dislocation is evident. The distal tibia and fibula are intact. There is no OCD lesion involving the talar dome. There is no calcaneal stress fracture. Joint spaces in the ankle and visualized foot are relatively maintained. The Achilles tendon is intact with a normal insertion onto the calcaneus posteriorly. No well-defined peroneal tendon tear is identified. There is a small os peroneum along the plantar margin of the cuboid bone. This is best seen on sagittal T1 image 16. Flexor and extensor tendons appear intact including the posterior tibialis tendon. There is a small accessory navicular bone along the posterior medial aspect of the navicular. There is subtle intermediate signal of the anterior talofibular ligament consistent with a prior low-grade sprain. The calcaneofibular ligament, posterior talofibular ligament and superficial and deep components of the deltoid ligament appear intact. There is no cystic or solid soft tissue mass in the region of the tarsal tunnel. There is thickening and increased signal involving the central band of the plantar fascia near the calcaneal attachment site with edema in the adjacent soft tissues consistent with moderately severe plantar fasciitis. There appears to be a small intrasubstance tear of the central band of the plantar fascia at the calcaneal attachment site measuring approximately 4 x 2 mm. There is a moderate to large plantar calcaneal spur with mild reactive edema in the adjacent calcaneus. IMPRESSION: 1. There is moderate to severe acute plantar fasciitis with a suspected small intrasubstance tear of the central band of the plantar fascia at the calcaneal attachment site measuring 4 x 2 mm. 2. There is a moderate to large plantar calcaneal spur with mild bone marrow edema in the adjacent calcaneus suspicious for reactive edema or stress response. 3. No acute fracture or talar OCD lesion. 4. Low-grade sprain of the anterior talofibular ligament. Electronically authenticated by: KELLIE EATON Date: 2022-07-12 11:54 Normal [facility] Vital Signs Date Time Vital Sign Value Performing Clinician Kishori eunicey 05-03-2024 09:00-0500 Body height 157.5 cm Shandra Nails APRNSocialware Work Phone: [facility] 05-03-2024 09:00-0500 Body mass index (BMI) [Ratio] 43.27 kg/m2 Shandra Nails APRNSocial[employer] Work Phone: [facility] 05-03-2024 09:00-0500 Body weight 107.32 kg Shandra Nails ANNEALING TORCH OPERATOR-MAINTENANCE TRUCK DRIVER Work Phone: [facility] 05-03-2024 09:00-0500 Diastolic blood pressure 73 mm[Hg] Shandra Nails ANNEALING TORCH OPERATOR-MAINTENANCE TRUCK DRIVER Work Phone: [facility] 05-03-2024 09:00-0500 Heart rate 80 /min Shandra Nails ANNEALING TORCH OPERATOR-MAINTENANCE TRUCK DRIVER Work Phone: [facility] 05-03-2024 09:00-0500 Systolic blood pressure 139 mm[Hg] Shandra Nails ANNEALING TORCH OPERATOR-MAINTENANCE TRUCK DRIVER Work Phone: [facility] 06-21-2023 13:24-0500 Body height 157.5 cm Irais Chau MD Work Phone: [facility] 06-21-2023 13:24-0500 Body mass index (BMI) [Ratio] 43.13 kg/m2 Irais Chau MD Work Phone: [facility] 06-21-2023 13:24-0500 Body weight 106.96 kg Irais Chau MD Work Phone: [facility] 06-21-2023 13:24-0500 Diastolic blood pressure 76 mm[Hg] Irais Chau MD Work Phone: [facility] 06-21-2023 13:24-0500 Heart rate 72 /min Irais Chau MD Work Phone: [facility] 06-21-2023 13:24-0500 Systolic blood pressure 117 mm[Hg] Irais Chau MD Work Phone: [facility] 05-18-2023 11:54-0500 Body mass index (BMI) [Ratio] 44.37 kg/m2 Petar Sales MD Work Phone: [facility] 05-18-2023 11:54-0500 Body temperature 97.81 [degF] Petar Sales MD Work Phone: [facility] 05-18-2023 11:54-0500 Body weight 110.04 kg Petar Sales MD Work Phone: [facility] 05-18-2023 11:54-0500 Diastolic blood pressure 76 mm[Hg] Petar Sales MD Work Phone: [facility] 05-18-2023 11:54-0500 Systolic blood pressure 118 mm[Hg] Petar Sales MD Work Phone: [facility] 04-28-2023 08:31-0500 Body height 157.5 cm Petar Sales MD Work Phone: [facility] 04-28-2023 08:31-0500 Body mass index (BMI) [Ratio] 43.64 kg/m2 ePtar Sales MD Work Phone: [facility] 04-28-2023 08:31-0500 Body temperature 98.01 [degF] Petar Sales MD Work Phone: [facility] 04-28-2023 08:31-0500 Body weight 108.23 kg Petar Sales MD Work Phone: [facility] 04-28-2023 08:31-0500 Diastolic blood pressure 80 mm[Hg] Petar Sales MD Work Phone: [facility] 04-28-2023 08:31-0500 Heart rate 56 /min Petar Sales MD Work Phone: [facility] 04-28-2023 08:31-0500 Systolic blood pressure 130 mm[Hg] Petar Sales MD Work Phone: [facility] Encounters Encounter Date Encounter Type Care Provider Facility Start: 05-03-2024 End: 05-03-2024 Office outpatient new 30 minutes Shandra Nails ANNEALING TORCH OPERATOR-MAINTENANCE TRUCK DRIVER Work Phone: [facility] Comment on above: Blood in stool (Prim nava Dx) Start: 05-03-2024 End: 05-03-20[facility] Start: 04-20-2024 End: 04-20-2024 Orders Only Prakash BROUSSARD Work Phone: [facility] Comment on above: Blood in stool (Prim nava Dx) Start: 08-19-2023 End: 08-19-2023 ambulatory [facility] Start: 07-01-2023 Orders Only Pattie carrera [facility] Start: 06-30-2023 Telephone encounter Ashtyn Steel [facility] Start: 06-27-2023 Orders Only Dhara Joe RN [facility] Start: 06-22-2023 End: 06-22-2023 ambulatory [facility] Start: 06-21-2023 End: 06-21-2023 Office outpatient new 30 minutes Irais Chau MD Work Phone: [facility] Comment on above: Lipoma of left lower extremity (Primary Dx) Start: 06-21-2023 End: 06-21-2023 ambulatory [facility] Start: 06-20-2023 End: 06-21-2023 ambulatory [facility] Start: 06-20-2023 End: 06-20-2023 ambulatory [facility] Start: 06-02-2023 Refill Petar Sales MD Work Phone: [facility] Start: 05-18-2023 End: 05-18-2023 Office outpatient visit 15 minutes Petar Sales MD Work Phone: [facility] Comment on above: Bacterial vaginosis (Primary Dx) Start: 05-18-2023 End: 05-18-2023 ambulatory [facility] Start: 04-28-2023 End: 04-29-2023 ambulatory [facility] Start: 04-28-2023 End: 04-28-2023 Office outpatient visit 25 minutes Petar Sales MD Work Phone: [facility] Comment on above: Lipoma of left lower extremity (Primary Dx); Hematuria, unspecified type Start: 04-12-2023 End: 04-13-2023 ambulatory VALERIE Carbajal [facility] Start: 04-11-2023 End: 04-12-2023 ambulatory PETAR SALES [facility] Start: 07-09-2022 End: 07-10-2022 ambulatory [facility] Facility: Start: 03-23-2022 End: 03-24-2022 ambulatory [facility] Facility: Procedures Date Procedure Procedure Detail Performing Clinician Start: 02-22-2023 Adult depression screening assessment Petar Sales MD Work Phone: Start: 12-04-2020 H/O: hysterectomy Status post hysterectomy Petar Sales MD Work Phone: Plan of Treatment Date Care Activity Detail Author Start: 05-03-2025 Adult BMI Screening Adult BMI Screen ing [facility] Start: 08-18-2024 Adult BMI Screening Adult BMI Screen ing [facility] Start: 08-18-2024 Tobacco Screening Tobacco Screening [facility] Start: 06-21-2024 Adult BMI Screening Adult BMI Screen ing [facility] Start: 06-21-2024 Tobacco Screening Tobacco Screening [facility] Start: 05-18-2024 Adult BMI Screening Adult BMI Screen ing [facility] Start: 05-18-2024 Tobacco Screening Tobacco Screening [facility] Start: 05-10-2024 End: 05-10-2024 ambulatory 05/10/2024 2:20 PM EST Support Visit [facility] - Pre Admit [address] [place] [address] [facility] Start: 04-30-2024 End: 04-30-2024 Patient encounter procedure 04/30/2024 7:40 AM EST Office Visit [facility] [address] [place] [phone] Auguste PrakashEFRENN-MAINTENANCE TRUCK DRIVER [address] [place] [address], [place] [address] [facility] Start: 04-28-2024 Adult BMI Screening Adult BMI Screen ing [facility] Start: 04-28-2024 Tobacco Screening Tobacco Screening [facility] Start: 02-23-2024 Depression Screening Depression Scre ening [facility] Start: 12-25-2023 COVID-19 Vaccine ( season) COVID-19 Vaccine ( season) [facility] Start: 12-25-2023 Influenza vaccination Influenza Vacc ine [facility] Start: 06-20-2023 End: 06-20-2023 Patient encounter procedure 06/20/2023 9:15 AM EST Office Visit [facility]ne[facility] [facility] [address] [place] [address] Gertrude Jacques MD [address] [place] [address] [facility] Obstetrics/Gynecology Start: 05-25-2023 End: 05-25-2023 Patient encounter procedure 05/25/2023 11:00 AM EST Office Visit [facility] General Surgery [address] [place] [phone] Aron Ewing DO [address] [place] [address] [facility] Start: 12-24-2022 COVID-19 Vaccine ( season) COVID-19 Vaccine ( season) [facility] Start: 12-24-2022 Influenza vaccination Influenza Vacc ine [facility] Start: 2000 DTaP,Tdap and Td Vaccines (1 - Tdap) DTaP,Tdap and Td Vaccines (1 - Tdap) [facility] Start: 1999 Adult BMI Follow Up Plan [facility] End: 05-03-2025 Colonoscopy Colonoscopy GI Routine Blood in stool 1 Occurrences starting 05/03/2024 until 05/03/2025 [facility] Work Phone: Comment on above: 1 Occurrences starti ng 05/03/2024 until 05/03/2025 Colonoscopy flx dx w/collj spec when pfrmd COLONOSCOPY DIAGNOSTIC / SCREENING rectal [facility] End: 06-21-2024 Surgical Pathology Surgical Pathology Pathology and Cytology Routine Lipoma of left lower extremity 1 Occurrences starting 06/21/2023 until 06/21/2024 [facility] Work Phone: Comment on above: 1 Occurrences starti ng 06/21/2023 until 06/21/2024 Immunizations Immunization Date Immunization Notes Care Provider Fa [facility] 02-05-2022 influenza virus vaccine, unspecified formulation Petar Sales MD Work Phone: [facility] Payers Date Payer Category Payer Managed Care Other (unspecified) [id number] PLAN [id number] 2023 Private Health Insurance [id number] 2023 Private Health Insurance [id number] 1981 Unknown [id number]. [id number] 1981 Unknown [id number] [id number]. 2.593 1981 Unknown [id number] 2.16.840.1.983102.3.579. 2.1286 1981 Unknown [id number] 2.16.840.1.976324.3.579. 2.1286 1981 Unknown [id number] [id number]. 2.1286 1981 Unknown [id number] 2.16.840.1.403200.3.579. 2.1286 1981 Unknown [id number] [id number]. 2.1286 1981 Unknown [id number] 2.16.840.1.188732.3.579. 2.6 1981 Unknown [id number] [id number]. 2.1286 1981 Unknown [id number] 2.16.840.1.107630.3.579. 2.1286 1981 Unknown [id number] 2.16.840.1.383765.3.579. 2.1286 1981 Unknown [id number] [id number]. 2.1286 1959 Unknown [id number] Social History Date Type Detail Facility Start: 09-02-2022 Tobacco smoking stat [facility] Never smoked tobacco [facility] Start: 09-02-2022 Tobacco use and exposure Smoke less tobacco non-user [facility] Start: 04-28-2023 End: 05-03-2024 Alcohol intake Current drinker of alcohol (finding) [facility] Start: 04-26-2019 End: 05-19-2020 History of Social function [facility] Start: 04-26-2019 End: 05-19-2020 Social connection and isolation panel [facility] Frequency of Communication with Friends and Family More than three times a week [facility] Start: 04-26-2019 Education 12 [facility] Start: 03-18-2018 Alcohol Comment occasional [facility] Start: 1980 Sex Assigned At Female P [facility] Start: 01-22-2022 Gender identity Identifies as female gender (finding) [facility] Start: 11-28-2014 Sex Female (finding) [facility] Clinical Notes 03-24-2022 to 05-03-2024 Shandra Nails, ANNEALING TORCH OPERATOR-[facility] - 05/03/2024 9:00 AM ESTTelephone Encounter - Ashtyn Steel, [facility] - 06/30/2023 9:27 AM ESTTelephone Encounter - Ashtyn Steel, [facility] - 06/30/2023 9:27 AM EST Note Date & Type Note Facility 05-03-2024 History of Presen t illness Narrative Images from the original note were not included. Chief Complaint: Rectal bleeding History of Present Illness Jazlyn Araiza is a 43 y.o. female who presents to the office for rectal bleeding. She reports intermittent bright red blood per her rectum since July. Around [place] she had 3 days of increased bleeding. She states the toilet paper was saturated with blood and it was also in the toilet bowl. She has not had any bleeding since then. She denies any abdominal pain, rectal pain, constipation or diarrhea. She was seen in the [facility] for her symptoms. BETSEY was performed and no hemorrhoids were visualized. She had a colonoscopy about 20 years ago. She states there is a family history of colon cancer in her cousin, but no first-degree relatives. Review of Systems Constitutional: Negative for fever and unexpected weight change. HENT: Negative for trouble swallowing. Respiratory: Negative for shortness of breath. Cardiovascular: Negative for chest pain. Gastrointestinal: Positive for blood in stool. Negative for nausea, vomiting, abdominal pain, diarrhea and constipation. Genitourinary: Negative for dysuria and difficulty urinating. Musculoskeletal: Negative for gait problem. Skin: Negative for rash and wound. Neurological: Negative for dizziness, weakness and light-headedness. Hematological: Does not bruise/bleed easily. Psychiatric/Behavioral: Negative for confusion. Past Medical History: Diagnosis Date Anxiety Back pain Migraine Rectal bleeding Recurrent UTI Past Surgical History: Procedure Laterality Date ABDOMINAL HYSTERECTOMY N/A 12/03/2020 Performed by Taty Saul MD at [facility] BARTHOLIN GLAND CYST EXCISION SECTION COLONOSCOPY ECTOPIC SURGERY HYSTEROSCOPY DILATION CURETTAGE ENDOMETRIAL ABLATION MYOSURE N/A 09/10/2020 Performed by Taty Saul MD at [facility] LAPAROSCOPIC VAGINAL HYSTERECTOMY N/A 12/03/2020 Performed by Taty Saul MD at [facility] MARSUPIALIZATION OF BARTHOLIN CYST Right 01/31/2019 Performed by Taty Saul MD at [facility] TUBAL LIGATION No Known Allergies Current Outpatient Medications: cyanocobalamin (VITAMIN B-12) 1,000 mcg/mL injection, Inject 1 mL (1,000 mcg total) into the appropriate muscle every 30 (thirty) days., Disp: , Rfl: UNABLE TO FIND, Inject 1 INJECTION under the skin every 30 (thirty) days. Vitamin D injection monthly, Disp: , Rfl: sod sulf-pot chloride-mag sulf 1.479-0.188- 0.225 gram tablet, Please see instructional sheet given by physicians office., Disp: 24 tablet, Rfl: 0 Social History Socioeconomic History Marital status: Single Spouse name: Not on file Number of children: Not on file Years of education: Not on file Highest education level: 12th grade Occupational History Not on file Tobacco Use Smoking status: Never Smokeless tobacco: Never Vaping Use Vaping status: Never Used Substance and Sexual Activity Alcohol use: Yes Comment: occasional Drug use: No Sexual activity: Yes Partners: Male control/protection: Surgical Comment: tubal ligation/ hysterectomy Other Topics Concern Not on file Social History Narrative Not on file Social Drivers of Health Financial Resource Strain: Low Risk (04/30/2024) Overall Financial Resource Strain (CARDIA) Difficulty of Paying Living Expenses: Not hard at all Food Insecurity: No Food Insecurity (05/03/2024) Hunger Screening Food Insecurity - Worry: Never True Food Insecurity - Inability: Never True Transportation Needs: No Transportation Needs (04/30/2024) PRAPARE - Transportation Lack of Transportation (Medical): No Lack of Transportation (Non-Medical): No Physical Activity: Inactive (04/26/2019) Exercise Vital Sign Days of Exercise per Week: 0 days Minutes of Exercise per Session: 0 min Stress: Stress Concern Present (04/26/2019) [employer] - Occupational Stress Questionnaire Feeling of Stress : Rather much Social Connections: Moderately Integrated (04/26/2019) Social Connection and Isolation Panel [NHANES] Frequency of Communication with Friends and Family: More than three times a week Frequency of Social Gatherings with Friends and Family: Once a week Attends Yarsani Services: More than 4 times per year Active Member of Clubs or Organizations: No Attends Club or Organization Meetings: Never Marital Status: Interpersonal Safety: Not At Risk (04/26/2019) Humiliation, Afraid, Rape, and Kick questionnaire Fear of Current or Ex-Partner: No Emotionally Abused: No Physically Abused: No Sexually Abused: No Housing Instability: Low Risk (04/30/2024) Housing Instability Housing Instability: No Family History Problem Relation Age of Onset Other Mother clear cell sarcoma Prostate cancer Father Depression Sister Miscarriages / Stillbirths Sister Stroke Sister No Known Problems Sister Breast cancer Maternal Aunt 43 Breast cancer Maternal Aunt Lung cancer Maternal Aunt Alcohol abuse Maternal Uncle Drug abuse Maternal Uncle Arthritis Maternal Grandmother Hypertension Maternal Grandmother Objective Physical Exam Constitutional: General: She is not in acute distress. Appearance: Normal appearance. She is not ill-appearing. HENT: Head: Normocephalic and atraumatic. Mouth/Throat: Mouth: Mucous membranes are moist. Eyes: Pupils: Pupils are equal, round, and reactive to light. Cardiovascular: Rate and Rhythm: Normal rate. Pulmonary: Effort: Pulmonary effort is normal. No respiratory distress. Abdominal: General: There is no distension. Musculoskeletal: General: Normal range of motion. Skin: General: Skin is warm and dry. Neurological: Mental Status: She is alert and oriented to person, place, and time. Mental status is at baseline. Vital Signs: Blood pressure 139/73, pulse 80, height 157.5 cm (5' 2 ), weight 107.3 kg (236 lb 9.6 oz), last menstrual period 10/28/2020, not currently . Respiratory Source: No data recorded Admission Weight: Weight: 107.3 kg (236 lb 9.6 oz) Labs Lab Results Component Value Date WBC 12.9 (H) 04/11/2023 HGB 13.2 04/11/2023 HCT 41.2 04/11/2023 MCV 91 04/11/2023 PLT 188 04/11/2023 Lab Results Component Value Date GLU 87 04/11/2023 CALCIUM 9.2 04/11/2023 K 3.5 04/11/2023 CO2 25 04/11/2023 CL 104 04/11/2023 BUN 10 04/11/2023 CREATININE 0.75 04/11/2023 No results found for: AMYLASE No results found for: LIPASE Lab Results Component Value Date ALT 18 04/11/2023 AST 16 04/11/2023 ALKPHOS 56 04/11/2023 No results found for: INR , PROTIME Assessment Jazlyn Araiza is a 43 y.o.female with rectal bleeding. Plan Colonoscopy with possible biopsy and/or polypectomy. Risks, benefits, and alternatives discussed with patient. Educated on bowel evacuation preparation. Patient verbalizes understanding and wishes to proceed. Evaluation included: Preparing to see the patient (e.g., review of tests) Obtaining and/or reviewing separately obtained history Performing a medically appropriate examination and/or evaluation Counseling and educating the patient/family/caregiver Referring and communicating with other health companion caregiver Blood in stool [K92.1] AARTI WILSON [facility] Physicians General Surgery [place] This note was created with the assistance of a speech recognition program. While intending to generate a timely document that accurately reflects the content of the visit, no guarantee can be provided that every grammatical or spelling mistake has been or will be identified or corrected. Thank you for your understanding. AARTI Wilson 05/03/24 0932 documented in this encounter [facility] 06-30-2023 Miscellaneous Notes ----- Message from Irais Chau MD sent at 06/30/2023 8:45 AM EST ----- Regarding: Pathology Please let patient know benign lipoma. Follow-up as needed. Thank you ----- Message ----- From: Interface - Lab Results/Orders In Sent: 06/28/2023 9:42 AM EST To: Irais Chau MD Spoke with patient regarding pathology results. Patient verbally understood with no further questions. documented in this encounter [facility] 06-30-2023 Telephone encounter Note ----- Message from Irais Chau MD sent at 06/30/2023 8:45 AM EST ----- Regarding: Pathology Please let patient know benign lipoma. Follow-up as needed. Thank you ----- Message ----- From: Interface - Lab Results/Orders In Sent: 06/28/2023 9:42 AM EST To: Irais Chau MD [facility] 06-30-2023 Telephone encounter Note Spoke with patient regarding pathology results. Patient verbally understood with no further questions. [facility] 06-21-2023 History of Presen t illness Narrative Images from the original note were not included. Chief Complaint: left medial leg subcutaneous mass History of Present Illness: Jazlyn Araiza is a 43 y.o. female presents to the office with left medial leg subcutaneous mass. This has been present for 2-3 months. It has been getting bigger in size. It is causing her discomfort. She denies any significant pain. She denies any signs of infection. She would like to get it removed. HPI Review of Systems Constitutional: Negative for fever and chills. Respiratory: Negative for shortness of breath. Cardiovascular: Negative for chest pain and palpitations. Gastrointestinal: Negative for nausea, vomiting and abdominal pain. Genitourinary: Negative for dysuria and difficulty urinating. Skin: Negative for rash and wound. Subcutaneous mass left leg Allergic/Immunologic: Negative for immunocompromised state. Neurological: Negative for weakness and light-headedness. Hematological: Does not bruise/bleed easily. Psychiatric/Behavioral: Negative for behavioral problems and confusion. Past Medical History: Diagnosis Date Anxiety Back pain Migraine Recurrent UTI Past Surgical History: Procedure Laterality Date ABDOMINAL HYSTERECTOMY N/A 12/03/2020 Performed by Taty Saul MD at [facility] BARTHOLIN GLAND CYST EXCISION SECTION COLONOSCOPY ECTOPIC SURGERY HYSTEROSCOPY DILATION CURETTAGE ENDOMETRIAL ABLATION MYOSURE N/A 09/10/2020 Performed by Taty Saul MD at [facility] LAPAROSCOPIC VAGINAL HYSTERECTOMY N/A 12/03/2020 Performed by Taty Saul MD at [facility] MARSUPIALIZATION OF BARTHOLIN CYST Right 01/31/2019 Performed by Taty Saul MD at [facility] TUBAL LIGATION No Known Allergies Current Outpatient Medications: ergocalciferol (DRISDOL) 1,250 mcg (50,000 unit) capsule, Take 1 capsule by mouth once a week, Disp: 8 capsule, Rfl: 0 metroNIDAZOLE (MetrogeL) 1 % gel, Apply 1 Application topically 2 (two) times a week., Disp: 45 g, Rfl: 0 Social History Socioeconomic History Marital status: Single Spouse name: Not on file Number of children: Not on file Years of education: Not on file Highest education level: 12th grade Occupational History Not on file Tobacco Use Smoking status: Never Smokeless tobacco: Never Vaping Use Vaping Use: Never used Substance and Sexual Activity Alcohol use: Yes Comment: occasional Drug use: No Sexual activity: Yes Partners: Male control/protection: Surgical Comment: tubal ligation/ hysterectomy Other Topics Concern Not on file Social History Narrative Not on file Social Determinants of Health Financial Resource Strain: Low Risk (04/26/2019) Overall Financial Resource Strain (CARDIA) Difficulty of Paying Living Expenses: Not hard at all Food Insecurity: No Food Insecurity (06/21/2023) Hunger Screening Food Insecurity - Worry: Never True Food Insecurity - Inability: Never True Transportation Needs: No Transportation Needs (04/26/2019) PRAPARE - Transportation Lack of Transportation (Medical): No Lack of Transportation (Non-Medical): No Physical Activity: Inactive (04/26/2019) Exercise Vital Sign Days of Exercise per Week: 0 days Minutes of Exercise per Session: 0 min Stress: Stress Concern Present (04/26/2019) [employer] - Occupational Stress Questionnaire Feeling of Stress : Rather much Social Connections: Moderately Integrated (04/26/2019) Social Connection and Isolation Panel [NHANES] Frequency of Communication with Friends and Family: More than three times a week Frequency of Social Gatherings with Friends and Family: Once a week Attends Yarsani Services: More than 4 times per year Active Member of Clubs or Organizations: No Attends Club or Organization Meetings: Never Marital Status: Interpersonal Safety: Not At Risk (04/26/2019) Humiliation, Afraid, Rape, and Kick questionnaire Fear of Current or Ex-Partner: No Emotionally Abused: No Physically Abused: No Sexually Abused: No Housing Instability: Not on file Family History Problem Relation Age of Onset Other Mother clear cell sarcoma Prostate cancer Father Breast cancer Maternal Aunt 43 Arthritis Maternal Grandmother Hypertension Maternal Grandmother Alcohol abuse Maternal Uncle Breast cancer Maternal Aunt Lung cancer Maternal Aunt Depression Sister Miscarriages / Stillbirths Sister Drug abuse Maternal Uncle Physical Exam Vitals reviewed. Constitutional: Appearance: Normal appearance. HENT: Head: Normocephalic and atraumatic. Eyes: Pupils: Pupils are equal, round, and reactive to light. Cardiovascular: Rate and Rhythm: Normal rate. Pulmonary: Effort: Pulmonary effort is normal. Abdominal: General: There is no distension. Palpations: Abdomen is soft. Tenderness: There is no abdominal tenderness. Musculoskeletal: General: No swelling. Skin: General: Skin is warm and dry. Comments: Left superior medial leg subcutaneous lesion, soft and mobile, measures 2 x 1 cm, Lipoma Neurological: Mental Status: She is alert and oriented to person, place, and time. Mental status is at baseline. Psychiatric: Mood and Affect: Mood normal. Behavior: Behavior normal. Vital Signs: Blood pressure 117/76, pulse 72, height 157.5 cm (5' 2 ), weight 107 kg (235 lb 12.8 oz), last menstrual period 10/28/2020, not currently . Respiratory Source: No data recorded Admission Weight: Weight: 107 kg (235 lb 12.8 oz) Labs: Lab Results Component Value Date WBC 12.9 (H) 04/11/2023 HGB 13.2 04/11/2023 HCT 41.2 04/11/2023 MCV 91 04/11/2023 PLT 188 04/11/2023 Lab Results Component Value Date GLU 87 04/11/2023 CALCIUM 9.2 04/11/2023 K 3.5 04/11/2023 CO2 25 04/11/2023 CL 104 04/11/2023 BUN 10 04/11/2023 CREATININE 0.75 04/11/2023 No results found for: AMYLASE No results found for: LIPASE Lab Results Component Value Date ALT 18 04/11/2023 AST 16 04/11/2023 ALKPHOS 56 04/11/2023 No results found for: INR , PROTIME In office procedure: Consent was obtained The area was prepped and draped in usual sterile fashion. Local anesthesia was infiltrated. A longitudinal incision was made overlying the subcutaneous mass this was deepened through the skin until the lipoma was reached. Using blunt and sharp dissection the lipoma was from surrounding subcutaneous tissue. The lipoma was completely excised and sent for pathology. Hemostasis was assured. The skin was reapproximated using 2 layers, interrupted deep dermal 3-0 Vicryl followed by continuous subcuticular 4-0 Monocryl. Steri-Strips were applied. Assessment: Jazlyn Araiza is a 43 y.o.female with left lower extremity lipoma Lipoma of left lower extremity [D17.24] Plan: Extremity lipoma performed in the office today under local anesthesia Follow-up pathology Evaluation included: Preparing to see the patient (e.g., review of tests) Obtaining and/or reviewing separately obtained history Performing a medically appropriate examination and/or evaluation Counseling and educating the patient/family/caregiver Referring and communicating with other health companion caregiver Irais Chau MD [facility] General Surgery [place] documented in this encounter [facility] 05-18-2023 History of Presen t illness Narrative Images from the original note were not included. [address] [place] [id number] Patient: Jazlyn Araiza Date of : 1980 Encounter Date: 05/18/2023 SUBJECTIVE: Chief Complaint: Chief Complaint Patient presents with Bladder Problems Patient ID: Jazlyn Araiza is a 43 y.o. female. Patient continues to describe ongoing symptoms for the past month to month and a half with dysuria, urgency, frequency. Recently had Ob Gyne complete a pelvic exam, collected vaginitis panel and UA with urine culture. All testing is largely been negative. She is now having clear to green colored discharge as malodorous. The following portions of the patient's history were reviewed and updated as appropriate: allergies, current medications, past family history, past medical history, past social history, past surgical history and problem list. PHYSICAL EXAMINATION: Vitals: 05/18/23 1154 BP: 118/76 BP Site: Left Arm BP Postition: Sitting Temp: 36.6 C (97.8 F) TempSrc: Temporal Weight: 110 kg (242 lb 9.6 oz) Physical Exam Vitals reviewed. Constitutional: General: She is not in acute distress. Appearance: Normal appearance. Eyes: Extraocular Movements: Extraocular movements intact. Pupils: Pupils are equal, round, and reactive to light. Cardiovascular: Rate and Rhythm: Normal rate and regular rhythm. Pulses: Normal pulses. Heart sounds: Normal heart sounds. Pulmonary: Effort: Pulmonary effort is normal. No respiratory distress. Breath sounds: Normal breath sounds. No wheezing or rhonchi. Abdominal: General: Bowel sounds are normal. There is no distension. Palpations: Abdomen is soft. There is no mass. Tenderness: There is no abdominal tenderness. There is no right CVA tenderness, left CVA tenderness or guarding. Musculoskeletal: Cervical back: Normal range of motion and neck supple. Neurological: Mental Status: She is alert and oriented to person, place, and time. Mental status is at baseline. ASSESSMENT/PLAN: Jazlyn was seen today for bladder problems. Diagnoses and all orders for this visit: Bacterial vaginosis - metroNIDAZOLE (Metrogel VaginaL) 0.75 % (37.5mg/5 gram) vaginal gel; Insert 1 applicator into the vagina once daily at bedtime for 7 days. Will treat with Flagyl intravaginally for 1 week, this should help cover both Trichomonas and bacterial vaginosis. Reassess subsequently. PETAR SALES MD Family Medicine Physician [facility] Medicine / [facility] 05/18/23 This note was completed with voice recognition software. The document was reviewed for errors however some may still be present. Please do not hesitate to contact/Epic ms the author to verify any questions/concerns. documented in this encounter [facility] 04-28-2023 History of Presen t illness Narrative Images from the original note were not included. [address] [place] [phone] Patient: Jazlyn Araiza Date of : 1980 Encounter Date: 04/28/2023 SUBJECTIVE: Chief Complaint: Chief Complaint Patient presents with Leg Pain Left, lump. Urinary Tract Infection Patient ID: Jazlyn Araiza is a 42 y.o. female. Here today with ongoing concerns of dysuria. Last month patient was seen for similar concerns dysuria in addition to hematuria. Of note patient's past medical history is significant for total hysterectomy. Patient was recently seen by OB Gyne, stasis was not a very pleasant experience for her. They did do a pelvic exam and obtain vaginal swabs for gonorrhea and chlamydia, in other vaginitis, all the workup has been negative. There was no comments and signs of estrogen deficiency on the clinical exam. Patient continues to describe intermittent hematuria and blood on wiping after urinating. Patient also describes concerns of a small lump located on her left lower extremity. Has been growing over the last year, now becoming more painful with minimal activity. Every time she walks bears weight, plantar flexes her left lower extremity she notices a pulling sensation as well as sharp pains. Accordingly would like this lump to be removed. The following portions of the patient's history were reviewed and updated as appropriate: allergies, current medications, past family history, past medical history, past social history, past surgical history and problem list. PHYSICAL EXAMINATION: Vitals: 04/28/23 0831 BP: 130/80 Pulse: 56 Temp: 36.7 C (98 F) Weight: 108.2 kg (238 lb 9.6 oz) Height: 157.5 cm (5' 2 ) Physical Exam Vitals reviewed. Constitutional: General: She is not in acute distress. Appearance: Normal appearance. Eyes: Extraocular Movements: Extraocular movements intact. Pupils: Pupils are equal, round, and reactive to light. Cardiovascular: Rate and Rhythm: Normal rate and regular rhythm. Pulses: Normal pulses. Heart sounds: Normal heart sounds. Pulmonary: Effort: Pulmonary effort is normal. No respiratory distress. Breath sounds: Normal breath sounds. No wheezing or rhonchi. Abdominal: General: Bowel sounds are normal. There is no distension. Palpations: Abdomen is soft. There is no mass. Tenderness: There is no abdominal tenderness. There is no right CVA tenderness, left CVA tenderness or guarding. Musculoskeletal: Cervical back: Normal range of motion and neck supple. Skin: Comments: Left lower extremity has 3 x 4 cm soft tissue mass on on medial to posterolateral aspect of calf, just below the knee. Neurological: Mental Status: She is alert and oriented to person, place, and time. Mental status is at baseline. ASSESSMENT/PLAN: Jazlyn was seen today for leg pain and urinary tract infection. Diagnoses and all orders for this visit: Lipoma of left lower extremity New finding reviewed today, exam is consistent with a small soft tissue lipoma. Referral to General surgery to assist with excision as it is consistently causing pain and bothersome to patient. Limiting her ability to ambulate. - [facility] Physicians General Surgery - [place], [place]; Future Hematuria, unspecified type Patient had expressed concerns of vaginitis and bloody vaginal discharge, recently seen OB Gyne physician and completed a pelvic exam, not suspicious for any acute process. Swabs obtained, negative for infectious etiology. Recent UA and cultures have not been showing any microscopic hematuria. Patient endorses gross hematuria after voiding and on wiping. Currently improved/no concerns. Patient given instructions for follow-up for when to seek emergent care. PETAR SALES MD Family Medicine Physician [facility] Family Medicine / [facility] 04/28/23 This note was completed with voice recognition software. The document was reviewed for errors however some may still be present. Please do not hesitate to contact/[facility] the author to verify any questions/concerns. documented in this encounter [facility] 03-24-2022 Note PROCEDURE: XR FOOT R T MIN 3 VIEWS HISTORY: Pain in right foot ; chronic right heel pain COMPARISON: None. FINDINGS: BONES:6 mm calcaneal plantar spur. Focal area of cortical thickening along the medial margin of the second metatarsal mid diaphysis. No acute fracture or dislocation. SOFT TISSUES:No visible soft tissue swelling. EFFUSION:None visible. OTHER: Negative. IMPRESSION: 1. Small calcaneal plantar spur of uncertain clinical significance; otherwise unremarkable calcaneus. 2. Small area of cortical thickening involving the second metatarsal, nonspecific but suggestive of a healed stress fracture. Electronically authenticated by: CHRIS RODRIGUEZ Date: 2022-03-24 06:51 [facility] Evaluation note Diagnosis Lipoma of left lower extremity- Primary Hematuria, unspecified type [facility] Diagnosis Bacterial vaginosis- Primary Unspecified vaginitis and vulvovaginitis [facility] Diagnosis Lipoma of left lower extremity- Primary [facility] Diagnosis Blood in stool- Primary [facility] Diagnosis Blood in stool- Primary [facility] filed[facility] in this [facility] filedocument[facility] in this encounter [facility] on filedocumented in this encounter [facility] filedocumented in this encounter [facility] System[facility]ructionsNot on filedocumented in this encounter [facility] on filedocumented in this encounter [facility] System[facility]ructionsNot on filedocumented in this encounter [facility] SystemReason for referral (narrative)* Consultation (Routine) - Pending Review Specialty Diagnoses / Procedures Referred By Karley ornelas Referred To Contact General Surgery Diagnoses Lipoma of left lower extremity Petar Sales MD [address] [facility] [place] [address] Irais Chau MD [address] [place] [address] Referral ID Status Reason Start Date Expiration Date Visits Requested Visits Authorized [id number] Pending Review Specialty Services Required 04/28/2023 04/27/2024 1 1 [facility] Summary Purpose Family History No Family History Records FoundNo Family History Records FoundNo Family History Records FoundNo Family History Records Found Advance Directives No Advanced Directives Records FoundLatest Code Status on File Code Status Date Activated Date Inactivated Comments Full Code 12/03/2020 2:53 PM 12/05/2020 1:52 PM Latest Code Status on File Code Status Date Activated Date Inactivated Comments Full Code 12/03/2020 2:53 PM 12/05/2020 1:52 PM Date Activated Date Inactivated Comments 12/03/2020 2:53 PM 12/05/2020 1:52 PM Additional Source Comments INFORMATION SOURCE (unrecogn ized section and content) DATE CREATED AUTHOR 07/18/2022 [facility] DATE CREATED AUTHOR AUTHOR'S ORGANIZ ATION 06/26/2023 [facility] DATE CREATED AUTHOR AUTHOR'S ORGANIZ ATION 06/28/2023 [facility] DATE CREATED AUTHOR AUTHOR'S ORGANIZ ATION 05/08/2024 [facility] Reason for Visit (unrecogniz ed section and content) Reason Comments Leg Pain Left, lump. Urinary Tract Infection Reason Comments Bladder Problems Reason Comments Med Refill Reason Comments Suspicious Skin Lesion Lipoma of left lo wer extremity, referred by Dr. Sales Reason Comments Rectal Bleeding Blood in stool, refe rred by Prakash Auguste CNP Specialty Diagnoses / Procedures Referred By Karley ornelas Referred To Contact General Surgery Diagnoses Blood in stool Prakash Auguste APRN-MARISELA [address] [place] [phone] Phone: tel: fax: [facility] Physicians General Surgery [address] [place] [phone] Phone: tel: fax: Referral ID Status Reason Start Date Expiration Date V isits Requested Visits Authorized [id number] Closed Specialty Services Required 04/20/2024 04/20/2025 1 1 Care Teams (unrecognized sec tion and content) Wood Type Finisher Relationship Specialty Start Date End Date Petar Sales MD [address] [place] [address] PCP - General Internal Medicine 03/31/23 Wood Type Finisher Relationship Specialty Start Date End Date Petar Sales MD [address] [place] [address] PCP - General Internal Medicine 03/31/23 Wood Type Finisher Relationship Specialty Start Date End Date Petar Sales MD [address], [place] [address] PCP - General Internal Medicine 03/31/23 Wood Type Finisher Relationship Specialty Start Date End Date Petar Sales MD [address] [place] [address] PCP - General Internal Medicine 03/31/23 Wood Type Finisher Relationship Specialty Start Date End Date Petar Sales MD [address], [place] [address] PCP - General Internal Medicine 03/31/23 Wood Type Finisher Relationship Specialty Start Date End Date Petar Sales MD [address] [place] [address] PCP - General Internal Medicine 03/31/23 Wood Type Finisher Relationship Specialty Start Date End Date Petar Sales MD [address], [place] [address] PCP - General Internal Medicine 03/31/23 Wood Type Finisher Relationship Specialty Start Date End Date Petar Sales MD [address] [place] [address] PCP - General Internal Medicine 03/31/23 FOR RECORDS PERTAINING TO PATIENTS WHO ARE OR HAVE BEEN ENROLLED IN A CHEMICAL DEPENDENCY/SUBSTANCEABUSE PROGRAM, SOME INFORMATION MAY BE OMITTED. This clinical summary was aggregated from multiple sources. Caution should be exercised in using it in the provision of clinical care. This summary normalizes information from multiple sources, and as a consequence, information in this document may materially change the coding, format and clinical context of patient data. In addition, data may be omitted in some cases. CLINICAL DECISIONS SHOULD BE BASED ON THE PRIMARY CLINICAL RECORDS. [employer] provides no warranty or guarantee of the accuracy or completeness of information in this document.
== END 2024-05-09 12:56 | disposition home or self-care (01) ==
LOC: RAD 12:55
PROVIDERS: Visit Provider Podiatrist Foot & Ankle Surgery
DX: M79.672 Pain in left foot (principal)
CPT/HCPCS: 73630

== ENCOUNTER 2025-02-07 15:21 | Emergency (ER) | payer OTHER, SELFPAY ==
[2025-02-07] VITALS (16 sets, daily range): BP systolic 114–117; BP diastolic 65–75; PULSE 90–120; TEMP 37–38.2; O2SAT 96–98; BMI 37.9
--- OUTSIDE RECORDS SUMMARY | 2025-02-07 15:28 | XMS_ITS | Patient Health Record ---
Author Organization [facility] [place] Address [address] [place] [address] Care Team Providers Care Foreclosure Clerk Name Role Phone None, Unknown or Primary Care Provider Unavailab Jorge Du Unavailable [phone] Allergies No Known Allergies Results Component Value Reference Range Notes XR foot LT min 3V (Not yet r eviewed by provider) Interpretation: Performing Lab: Notes/Report: Source Facility: [place] [address] XRay Report Signed Patient: JAZLYN ARAIZA MR#: [id number] : 1980 Acct:[id number] Age/Sex: 43 / F ADM Date: 05/09/24 Loc: RAD Attending Dr: Jorge Leon D.P.M. Ordering Physician: Jorge Leon D.P.M. Date of Service: 05/09/24 Procedure(s): XR foot LT min 3V Accession Number(s): [id number] cc: Jorge Leon D.P.M.; Physician,Non-Staff [facility] [place] [id number] Patient Name: JAZLYN ARAIZA MRN: [id number] date: 1980 Sex: F Assigned Patient Location: RAD Current Patient Location: Accession/Order Number: [id number] Exam Date: 05/09/2024 13:02 Report Date: 05/10/2024 07:37 At the request of: JORGE LEON Procedure: XR foot LT min 3V PROCEDURE: XR foot LT min 3V COMPARISON: None. HISTORY: Left Foot Pain FINDINGS: BONES:No acute fracture or dislocation. Mild plantar enthesopathic spurring of the calcaneus. Chronic bone fragments medial navicular and lateral cuboid SOFT TISSUES:Negative. No visible soft tissue swelling. EFFUSION:None visible. OTHER: Negative. XR/XR foot LT min 3V IMPRESSION: No acute abnormality Electronically authenticated by: TEJAS BLOOM Date: 05/10/2024 07:37 Dictated By: Tejas Bloom M.D. Signed By: 05/10/2439 DD/ TD/TT: Office Aide: Reason For Referral No Information Social History Tobacco Use: Social History Observation Description Date Details (start date - stop date) Never Smoker NA - NA Tobacco Use/Smoking Question Answer Notes Patient is a nonsmoker Problems Problem Type SNOMED Code ICD Code Onset Dates Problem Status W/U Status Risk Notes Problem Contracture of joint of left ankle (disorder) (256965346279979) Contracture, left ankle (M24.572) Active confirmed Problem Plantar fascial fibromatosis (89075521) Plantar fascial fibromatosis (M72.2) Active confirmed Problem Pain in left foot (885359674232191) Left foot pain (M79.672) Active confirmed Problem Plantarflexion deformity of right foot (finding) (6087098722569642) 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) Active confirmed Vital Signs Heart Rate 76 /min 05/09/2024 Respiratory Rate 16 /min 05/09/2024 Oximetry 98 % 05/09/2024 Height 62 in 05/09/2024 Weight 232 lbs 05/09/2024 BMI 42.43 kg/m2 05/09/2024 Encounters Encounter Location Date Provider Diagnosis [facility] ([facility]) [address] [place] [address] [address] [place], [place] [address] 05/09/2024 Jorge Leon Plantar fascial fibromatosis M72.2 ; Contracture, left ankle M24.572 and Left foot pain M79.672 Assessments Encounter Date Diagnosis (ICD Code) Assessment Notes Treatment Notes Treatment Clinical Notes Section Notes 05/09/2024 Plantar fascial fibromatosis (ICD-10 - M72.2) Patient seen and evaluated. Patient education provided and all questions answered to her satisfaction. Patient has had symptoms for 6 months and despite nonsurgical treatment outlined in the HPI pain has especially gotten worse over the last 3 months. I recommended MRI which was ordered today. She will follow-up after that is obtained.Contin ue ibuprofen, daily stretching exercises, ice and massage. Avoid going barefoot and wear good supportive shoes. 05/09/2024 Contracture, left ankle (ICD-10 - M24.572) 05/09/2024 Left foot pain (ICD-10 - M79.672) Plan Of Treatment Pending Test Test Name Order Date XR Foot LT (3 views) * 05/09/2024 MRI Ankle LT w/o contrast (Hind Foot) XR foot LT min 3V 05/10/2024 Insurance Providers Payer Name Payer Address Payer Phone Subscriber Number Group Number Insured Name Patient Relationship to Insured Coverage Start Date Coverage End Date [employer] [address] [place] [address] [id number] Jazlyn Araiza Self - patient is the insured Medications Administered Medication Instructions Date of Administration Dosage Notes Celestone 6mg/mL 09/02/2022 1 mL Celestone 6mg/mL 01/06/2023 1 mL Lidocaine HCl 01/06/2023 1 mL Lidocaine HCl 09/02/2022 1 mL Medical (General) History Medical History History ICD Code Bilateral plantar fasciitis M72.2 Heel pain, right M79.671 Surgical History Surgery Date(Month/Year) Right endoscopic plantar fas ciotomy and Cornelio gastrocnemius/synovial recession 11/08/22
--- OUTSIDE RECORDS SUMMARY | 2025-02-07 15:28 | XMS_ITS | Encounter Summary ---
Author Organization [employer] Address [facility] [place]-[id number] [address] [place] [address] Care Team Providers Care Cork Insulation Installer Name Role Phone Petar Cervantes MD Primary Care Provider [phone] Encounter Details Date Type Department Care Team (Late st Contact Info) Description 02/23/[address] [facility] Physicians Family Medicine [address] [place] [address] [place] [address] Beti Ingram CMA Social History Tobacco Use Types Packs/Day Years Used Date Smoking Tobacco: Never Smokeless Tobacco: Never Alcohol Use Standard Drinks/Week Comments Yes 0 (1 standard drink = 0.6 oz pur e alcohol) occasional Social Connection and Isolation Panel Answer Date Recorded Frequency of Communication w ith Friends and Family More than three times a week 04/26/2019 Frequency of Social Gatherin gs with Friends and Family Once a week 04/26/2019 Attends Rastafarian Services More than 4 times per year 04/26/2019 Active Member of Clubs or Organizations No 04/26/2019 Attends Club or Organization Meetings Never 04/26/2019 Marital Status 04/26/2019 AUDIT-C Answer Date Recorded Frequency of Alcohol Consumption Monthly or less 04/26/2019 Average Number of Drinks 1 or 2 020 Frequency of Binge Drinking Never 05/2019 Overall Financial Resource Strain (CARDIA) Answe r Date Recorded Difficulty of Paying Living Expenses Not hard at all 04/26/2019 PHQ-2 Answer Date Recorded Total Score 0 02/22/2023 [facility] [place] of Occupat ional Health - Occupational Stress Questionnaire Answer Date Recorded Feeling of Stress Rather much 04/26/2019 Exercise Vital Sign Answer Date Recorde d Days of Exercise per Week 0 days 2019 Minutes of Exercise per Session 0 min 04/26/2019 PRAPARE - Transportation Answer Date Re corded Lack of Transportation (Medical) No 04/26/2019 Lack of Transportation (Non-Medical) No 04/26/2019 Childcare Answer Date Recorded Childcare No 04/26/2019 Employment Answer Date Recorded Employment No 04/26/2019 Hunger Screening Answer Date Recorded Within the past 12 months we worried whether our food would run out before we got money to buy more. Never True 02/22/2023 Within the past 12 months th e food we bought just didn't last and we didn't have money to get more. Never True 02/22/2023 Purpose - Life Answer Date Recorded Purpose and direction in life Unknown Education Answer Date Recorded What is the highest level of school you have completed or the highest degree you have received? 12th grade 04/26/2019 Comments No Sex and Gender Information Value Date Recorded Sex Assigned at Female 01/22/2022 6:36 PM EDT Legal Sex Female 11:22 AM EDT Gender Identity Female 01/22/2022 6:36 PM EDT Sexual Orientation Not on file documented as of this encounter Miscellaneous Notes * Telephone Encounter - Beti Ingram CMA - 02/23/2023 3:10 PM EDT Patient called into the office and stated that she was in yesterday on 02/22/23 and she stated thatshe thinks its a yeast infection. Patient was asking for pink pill for yeast? documented in this encounter Plan of Treatment Not on file documented as of this encounter Visit Diagnoses Not on filedocumented in this encounter Additional Health Concerns Assessment Noted Time PHQ-9 Depression Total Score: 0 02/23/20 10:13 AM EDT A Body Mass Index follow-up plan has been documented for the patient 10/31/2019 12:43 PM EDT documented as of this encounter Care Teams Cork Insulation Installer Relationship Specialty Start Date End Date Petar Cervantes MD [address] [facility] [address] [place] [address] PCP - General Internal Medicine 03/31/23 documented as of this encounter
--- OUTSIDE RECORDS SUMMARY | 2025-02-07 15:28 | XMS_ITS | Encounter Summary ---
Author Organization [employer] Address [facility]-[id number] [address] [place] [address] Care Team Providers Care Quality Assurance Monitor Chassis Name Role Phone Petar Cervantes MD Primary Care Provider [phone] Encounter Details Date Type Department Care Team (Late st Contact Info) Description 03/03/2020 Telephone [facility] Physicians Family Medicine [address] [place] [address] [address] Ankur Farris CMA Social History Tobacco Use Types Packs/Day [...] and Family Once a week 04/26/2019 Attends Protestant Services More than 4 times per year [...] 04/26/2019 PHQ-2 Answer Date Recorded Total Score 16 11/22/[address] [facility] [place] of Occupat ional Health - Occupational Stress [...] Employment Answer Date Recorded Employment No 04/26/2019 Education Answer Date Recorded What is the highest level of school you have completed or the highest degree you have received? 12th grade 04/26/2019 Comments No Sex and Gender Information Value Date Recorded Sex Assigned at Female 01/22/2022 6:36 PM EDT Legal Sex Female 11:22 AM EDT Gender Identity Female 01/22/2022 6:36 PM EDT Sexual Orientation Not on file COVID-19 Exposure Response Date Recorded In the last month, have you been in contact with someone who was confirmed or suspected to have Coronavirus / COVID-19? No / Unsure 02/28/2020 10:02 AM EST documented as of this encounter Miscellaneous Notes * Telephone Encounter - Ankur Fang CMA - 03/03/2020 10:38 AM EST I called Amanda to inform her that her Covid test was negative. She verbalized understanding. Ankur Fang CMA 03/03/20 1039 documented in this encounter Plan of Treatment Not on file documented as of this encounter Visit Diagnoses Not on filedocumented in this encounter Additional Health Concerns Infection Onset Date Last Indicated Resolved Time COVID-19 Rule-Out 09/07/2020 09/07/2020 09/07/2020 9:58 PM EDT Assessment Noted Time PHQ-9 Depression Total Score: 16 020 1:00 PM EDT A Body Mass Index follow-up plan has been documented for the patient 10/31/2019 12:43 PM EDT documented as of this encounter Care Teams Quality Assurance Monitor Chassis Relationship Specialty Start Date End Date Petar Cervantes MD [address] [place] [address] PCP - General Internal Medicine 03/31/23 documented as of this encounter
--- OUTSIDE RECORDS SUMMARY | 2025-02-07 15:28 | XMS_ITS | Encounter Summary ---
Author Organization [employer] Address [id number] [address] [place] [address] Care Team Providers Care Research Chef Name Role Phone Petar Sales MD Primary Care Provider [phone] Encounter Details Date Type Department Care Team (Late st Contact Info) Description 04/13/2023 Telephone [facility] Physicians Family Medicine [address] [place] [address] [place] [address] Mariana Byrne CMA Social History Tobacco Use Types Packs/Day [...] and Family Once a week 04/26/2019 Attends Holiness Services More than 4 times per year [...] Answer Date Recorded Total Score 0 02/22/2023 [facility] [place] of Occupat ional Health - Occupational Stress [...] got money to buy more. Never True 04/12/2023 Within the past 12 months th e food we bought just didn't last and we didn't have money to get more. Never True 04/12/2023 Purpose - Life Answer Date Recorded Purpose [...] encounter Miscellaneous Notes * Telephone Encounter - Mariana Byrne CMA - 04/13/2023 8:36 AM EST ----- Message from Petar Sales MD sent at 04/12/2023 11:41 PM EST ----- Abnormal result. High dose Vitamin D sent Please call pt and notify to start taking PETAR SALES MD * Telephone Encounter - Mariana Byrne CMA - 04/13/2023 8:36 AM EST Patient was called, noted understanding. At time of call she did make an appointment to see provider because she is still having difficulty with her bladder. * Telephone Encounter - Petar Sales MD - 04/13/2023 8:36 AM EST No action needed, Thanks documented in this encounter Plan of Treatment Not on file documented as of this encounter Visit Diagnoses Not on filedocumented in this encounter Additional Health Concerns Assessment Noted Time PHQ-9 Depression Total Score: 0 02/23/20 10:13 AM EDT A Body Mass Index follow-up plan has been documented for the patient 10/31/2019 12:43 PM EDT documented as of this encounter Care Teams Research Chef Relationship Specialty Start Date End Date Petar Sales MD [address] [facility] [place] [address] PCP - General Internal Medicine 03/31/23 documented as of this encounter
--- OUTSIDE RECORDS SUMMARY | 2025-02-07 15:28 | XMS_ITS | Clinical Summary ---
Author Organization [facility] Healthcare Address [address] [facility] [address] Care Team Providers Care Dental Treatment Coordinator Name Role Phone Unavailable Primary Care Provider Unavailabl e Social History Tobacco Use Types Packs/Day Years Used Date Smoking Tobacco: Never Assessed Comments Unknown Sex and Gender Information Value Date Recorded Sex Assigned at Not on file Legal Sex Female 6:47 PM EDT Gender Identity Not on file Sexual Orientation Not on file Last Filed Vital Signs Vital Sign Reading Time Taken Comments Blood Pressure - - Pulse - - Temperature - - Respiratory Rate - - Oxygen Saturation - - Inhaled Oxygen Concentration - - Weight 95.3 kg (210 lb) 02/02/2022 12:00 PM EDT Height 157.5 cm (5' 2 ) 02/02/2022 12:00 PM EDT Body Mass Index 38.41 02/02/2022 12:00 PM EDT Plan of Treatment Not on file
--- OUTSIDE RECORDS SUMMARY | 2025-02-07 15:28 | XMS_ITS | Encounter Summary ---
Author Organization [employer] Address [facility] [place]-[id number] [address] [place] [address] Care Team Providers Care Laminating Machine Offbearer Name Role Phone Petar Cervantes MD Primary Care Provider [phone] Encounter Details Date Type Department Care Team (Late st Contact Info) Description 07/08/2023 Telephone [facility] Physicians Family Medicine [address] [place] [address] Mariana Byrne CMA Social History [...] and Family Once a week 04/26/2019 Attends Gnosticist Services More than 4 times per year [...] Answer Date Recorded Total Score 0 02/22/2023 [facility] [place] of Occupat ional Health - Occupational [...] got money to buy more. Never True 06/21/2023 Within the past 12 months th e food we bought just didn't last and we didn't have money to get more. Never True 06/21/2023 Purpose - Life Answer Date Recorded Purpose [...] Telephone Encounter - Mariana Byrne CMA - 07/08/2023 2:36 PM EDT Patient called into office with complaints of using the restroom today (07/08/23) and feels like a cyst ruptured. She stated she was activily bleeding and there was something that resembled a blood clot in the toilet. She stated that it was bright red in color and has only happened this one time today. TANO stressed to the patient that we did not have any providers in the office today and that she should proceed to the hospital for further evaluation. Patient stated understanding and was agreeable to go. * Telephone Encounter - Petar Cervantes MD - 07/08/2023 2:36 PM EDT No action needed, Thanks documented in this encounter Plan of Treatment Not on file documented as of this encounter Visit Diagnoses Not on filedocumented in this encounter Additional Health Concerns Assessment Noted Time PHQ-9 Depression Total Score: 0 02/23/20 23 10:13 AM EDT A Body Mass Index follow-up plan has been documented for the patient 10/31/2019 12:43 PM EDT documented as of this encounter Care Teams Laminating Machine Offbearer Relationship Specialty Start Date End Date Petar Cervantes MD [address] [facility] [place] [address] PCP - General Internal Medicine 03/31/23 documented as of this encounter
--- OUTSIDE RECORDS SUMMARY | 2025-02-07 15:28 | XMS_ITS | Encounter Summary ---
Author Organization [employer] Address [id number] [address] [place] [address] Care Team Providers Care Sanitation Supervisor Name Role Phone Petar Cervantes MD Primary Care Provider [phone] Encounter Details Date Type Department Care Team (Late st Contact Info) Description 10/08/2024 Orders Only [facility] Obstetrics/Gynecology [address] [facility] [address] [place] [address] Charisse Xiong, CARPET FINISHING SUPERVISOR-PRE SALES ARCHITECT [address] [place] [address] Social History Tobacco Use Types Packs/Day Years [...] and Family Once a week 04/26/2019 Attends Orthodoxy Services More than 4 times per year 04/26/2019 Active Member of Clubs or Organizations No 04/26/2019 Attends Club or Organization Meetings Never 04/26/2019 Marital Status 04/26/2019 AUDIT-C Answer Date Recorded Frequency of Alcohol Consumption Monthly or less 04/26/2019 Average Number of Drinks 1 or 2 020 Frequency of Binge Drinking Never 05/2019 Overall Financial Resource Strain (CARDIA) Answe r Date Recorded How hard is it for you to pa y for the very basics like food, housing, medical care, and heating? Not hard at all 04/30/2024 PHQ-2 Answer Date Recorded Total Score 0 02/22/2023 [facility] [place] of Occupat ional Health - Occupational Stress Questionnaire Answer Date Recorded Feeling of Stress Rather much 04/26/2019 Exercise Vital Sign Answer Date Recorde d Days of Exercise per Week 0 days 2019 Minutes of Exercise per Session 0 min 04/26/2019 PRAPARE - Transportation Answer Date Re corded In the past 12 months, has l ack of transportation kept you from medical appointments or from getting medications? No 09/2024 In the past 12 months, has l ack of transportation kept you from meetings, work, or from getting things needed for daily living? No 04/30/2024 Housing Instability Answer Date Recorde d Are you worried or concerned that in the next two months you may not have stable housing that you own, rent or stay in as a part of a household? No 04/30/2024 Childcare Answer Date Recorded Childcare No 04/26/2019 Employment Answer Date Recorded Employment No 04/26/2019 Hunger Screening Answer Date Recorded Within the past 12 months we worried whether our food would run out before we got money to buy more. Never True 10/04/2024 Within the past 12 months th e food we bought just didn't last and we didn't have money to get more. Never True 10/04/2024 Purpose - Life Answer Date Recorded Purpose [...] on file documented as of this encounter Plan of Treatment Not on file documented as of this encounter Visit Diagnoses Not on filedocumented in this encounter Additional Health Concerns Assessment Noted Time PHQ-9 Depression Total Score: 0 02/23/20 23 10:13 AM EDT A Body Mass Index follow-up plan has been documented for the patient 10/31/2019 12:43 PM EDT documented as of this encounter Care Teams Sanitation Supervisor Relationship Specialty Start Date End Date Petar Cervantes MD [address] [facility] [place] [id number] PCP - General Internal Medicine 03/31/23 documented as of this encounter
--- OUTSIDE RECORDS SUMMARY | 2025-02-07 15:28 | XMS_ITS | Clinical Summary ---
Author Organization [facility] Address [address], [address] [place] [address] Care Team Providers Care Director Card Name Role Phone Unavailable Primary Care Provider Unavailabl e Social History Tobacco Use Types Packs/Day Years Used Date Smoking Tobacco: Never Assessed Comments Unknown Sex and Gender Information Value Date Recorded Sex Assigned at Not on file Legal Sex Female 10:26 AM EST Gender Identity Not on file Sexual Orientation Not on file Plan of Treatment Not on file
--- OUTSIDE RECORDS SUMMARY | 2025-02-07 15:28 | XMS_ITS | Encounter Summary ---
Author Organization [employer] Address [id number] [address] [place] [address] Care Team Providers Care Staff Command And Control Officer Name Role Phone Petar Cervantes MD Primary Care Provider [phone] Encounter Details Date Type Department Care Team (Late st Contact Info) Description 08/20/2020 Telephone [facility]Gynecology [address] [place] [place] [address] Zaria Cisneros MA Social History Tobacco Use Types Packs/Day Years [...] and Family Once a week 04/26/2019 Attends Amish Services More than 4 times per year [...] Answer Date Recorded Total Score 16 11/22/2019 [facility] [place] of Occupat ional Health - Occupational Stress [...] Employment Answer Date Recorded Employment No 04/26/2019 Purpose - Life Answer Date Recorded Purpose [...] have Coronavirus / COVID-19? No / Unsure 08/21/2020 2:18 PM EDT documented as of this encounter Miscellaneous Notes * Telephone Encounter - Zaria Cisneros MA - 08/20/2020 9:27 AM EDT D&C,HYSTEROSCOPY,ENDOMETRIAL ABLATION August@ 8:30AM PAT: August @ 9:45AM COVID: August @ 10:15AM Patient aware of dates and times documented in this encounter Plan of Treatment [...] documented as of this encounter Care Teams Staff Command And Control Officer Relationship Specialty Start Date End Date Petar Cervantes MD [address] [facility] [place] [address] PCP - General Internal Medicine 03/31/23 documented as of this encounter
--- OUTSIDE RECORDS SUMMARY | 2025-02-07 15:28 | XMS_ITS | Encounter Summary ---
Author Organization [employer] Address [id number] [address] [place] [address] Care Team Providers Care Gas Truck Driver Name Role Phone Petar Cervantes MD Primary Care Provider [phone] Encounter Details Date Type Department Care Team (Late st Contact Info) Description 05/19/2023 Orders Only [facility] Family Medicine [address] [place] [address] Petar Cervantes MD [address] [place] [address] Social History Tobacco Use Types Packs/Day Years [...] and Family Once a week 04/26/2019 Attends Mosque Services More than 4 times per year [...] Answer Date Recorded Total Score 0 02/22/2023 [place] of Occupat ional Health - Occupational Stress [...] got money to buy more. Never True 05/18/2023 Within the past 12 months th e food we bought just didn't last and we didn't have money to get more. Never True 05/18/2023 Purpose - Life Answer Date Recorded Purpose [...] documented as of this encounter Care Teams Gas Truck Driver Relationship Specialty Start Date End Date Petar Cervantes MD [address] [facility] [place] [address] PCP - General Internal Medicine 03/31/23 documented as of this encounter
--- OUTSIDE RECORDS SUMMARY | 2025-02-07 15:28 | XMS_ITS | Encounter Summary ---
Author Organization [employer] Address [facility] [id number] [address] [place] [address] Care Team Providers Care Bookmobile Librarian Name Role Phone Petar Cervantes MD Primary Care Provider [phone] Encounter Details Date Type Department Care Team (Late st Contact Info) Description 03/03/2020 Orders Only [facility] [address] [place] [address] [place] [id number] Ref Prov, [place] [address] Social History Tobacco Use Types Packs/Day Years [...] and Family Once a week 04/26/2019 Attends [employer] Services More than 4 times per year [...] Answer Date Recorded Total Score 16 11/22/2019 [facility] [place] of Occupat ional Health - Occupational Stress [...] AM EST documented as of this encounter Plan of Treatment Not on file documented as of this encounter Procedures Procedure Name Priority Date/Time Associated Diagnosis Comments SARS COV 2 BY NAAT/MOLECULAR (POCT FSED) Routine 03/03/2020 documented in this encounter Results * SARS CoV 2 (03/03/2020) us Not In System Ref Prov POINT OF CARE TEST ORDERA BLES Final Result MANUALLY TRANSCRIBED RESULTS documented in this encounter Visit Diagnoses Not on filedocumented in this encounter Additional Health Concerns Infection Onset Date Last Indicated Resolved Time COVID-19 Rule-Out 09/07/2020 09/07/2020 09/07/2020 9:58 PM EDT Assessment Noted Time PHQ-9 Depression Total Score: 16 020 1:00 PM EDT A Body Mass Index follow-up plan has been documented for the patient 10/31/2019 12:43 PM EDT documented as of this encounter Care Teams Bookmobile Librarian Relationship Specialty Start Date End Date Petar Cervantes MD [address] [place] [address] PCP - General Internal Medicine 03/31/23 documented as of this encounter
--- OUTSIDE RECORDS SUMMARY | 2025-02-07 15:29 | XMS_ITS | Clinical Summary ---
Author Organization [employer] [facility] tem Address [id number] [address] [place] [address] Care Team Providers Care Director Of Managed Care Name Role Phone Petar Cervantes MD Primary Care Provider [phone] Allergies No known active allergies Medications * This document contains information received from the source organization and may not represent a complete record from that organization. cyanocobalamin (VITAMIN B-12) 1,000 mcg/mL injection Inject 1 mL (1,000 mcg total) into the appropriate muscle every 30 (thirty) days. Active UNABLE TO FIND Inject 1 INJECTION under the skin every 30 (thirty) days. 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 Gastroenteritis 10/31/2019 Caffeine adverse reaction 10/31/2019 Sciatic leg pain 01/25/2019 Encounters Date Type Department Care Team Description 12/10/2024 Telephone [facility] [address] [place] [address] Dhara Joe, RN from Last 3 Months Family History Medical History Relation Name Comments Prostate cancer Father My dad Breast cancer Maternal Aunt 1 Aunt Koki Breast cancer Maternal Aunt 2 Moms sister Lung cancer Maternal Aunt 2 Moms sister Arthritis Maternal Grandmother Grandma on dads side Hypertension Maternal Grandmother Grandma on dads side Alcohol abuse Maternal Uncle 1 Alot of uncles Drug abuse Maternal Uncle 2 Moms side Other Mother clear cell sarc bailee Depression Sister 1 Henrietta Miscarriages / Stillbirths Sister 1 Henrietta Stroke Sister 2 Roberta No Known Problems Sister 3 Ranulfo Relation Name Status Comments Father My dad Alive Maternal Aunt 1 Aunt Koki Maternal Aunt 2 Moms sister Maternal Grandmother Grandma on dads side Maternal Uncle 1 Alot of uncles Maternal Uncle 2 Moms side Mother Sister 1 Henrietta Alive Sister 2 Roberta Alive Sister 3 Ranulfo Alive Social History Tobacco Use Types Packs/Day Years Used Date Smoking Tobacco: Never Smokeless Tobacco: Never Tobacco Cessation:Counseling Given: Not Answered Alcohol Use Standard Drinks/Week Comments Yes 0 (1 standard drink = 0.6 oz pur e alcohol) occasional Social Connection and Isolation Panel Answer Date Recorded Frequency of Communication w ith Friends and Family More than three times a week 04/26/2019 Frequency of Social Gatherin gs with Friends and Family Once a week 04/26/2019 Attends [employer] More than 4 times per year [...] Answer Date Recorded Total Score 0 02/22/2023 [facility] of Occupat ional Health - Occupational Stress [...] PM EDT Sexual Orientation Not on file Last Filed Vital Signs Vital Sign Reading Time Taken Comments Blood Pressure 101/68 11/05/2024 4:01 PM EDT Pulse 75 06/27/2024 11:00 AM EST Temperature 36.4 C (97.5 F) 05/18/2024 7:18 AM EST Respiratory Rate 17 05/18/2024 9:35 AM EST Oxygen Saturation 98% 05/18/2024 9:19 AM EST Inhaled Oxygen Concentration - - Weight 102.4 kg (225 lb 12.8 oz) 10/04/2024 2:50 PM EDT Height 157.5 cm (5' 2 ) 06/27/2024 11:0 0 AM EST Body Mass Index 41.3 06/27/2024 11:00 AM EST Plan of Treatment Health Maintenance Due Date Last Done Comments Adult BMI Follow Up Plan 1999 DTaP,Tdap and Td Vaccines (1 - Tdap) 2000 Depression Screening 02/23/2024 02/22/2023 COVID-19 Vaccine (3 - season) 2024, 03/30/2021 Influenza Vaccine 12/24/2024 02/05/2022, 02/16/2019 Adult BMI Screening 10/04/2025 10/04/2024 Tobacco Screening 10/04/2025 10/04/2024 Medical Devices Not on file Insurance [employer] Advance Directives * Full Code (Latest Code Status on File) Date Activated Date Inactivated Comments 12/03/2020 2:53 PM 12/05/2020 1:52 PM Care Teams Director Of Managed Care Relationship Specialty Start Date End Date Petar Cervantes MD [address] [facility] [place] [address] PCP - General Internal Medicine 03/31/23
--- OUTSIDE RECORDS SUMMARY | 2025-02-07 15:29 | XMS_ITS | Encounter Summary ---
Author Organization [employer] Address [id number] [address] [place] [address] Care Team Providers Care Repairer Art Objects Name Role Phone Petar Cervantes MD Primary Care Provider [phone] Encounter Details Date Type Department Care Team (Late st Contact Info) Description 11/11/2020 Telephone [facility] [address] [place] [address] Nava Simmons CMA Social History Tobacco Use Types Packs/Day [...] Answer Date Recorded Total Score 16 11/22/2019 [facility] [place] of Occupat ional Health - Occupational Stress [...] have Coronavirus / COVID-19? No / Unsure 11/10/2020 11:28 AM EDT documented as of this encounter Miscellaneous Notes * Telephone Encounter - Nava Simmons CMA - 11/11/2020 10:22 AM EDT ----- Message from AARTI River sent at 11/11/2020 7:46 AM EDT ----- Liver panel- WNL recheck in 6 weeks; Patient can start medication as per instructions * Telephone Encounter - Nava Simmons CMA - 11/11/2020 10:22 AM EDT lvm for patient informing of results and our phone number in case she has any questions. * Telephone Encounter - Nava Simmons CMA - 11/11/2020 10:22 AM EDT ----- Message from AARTI River sent at 11/11/2020 7:46 AM EDT ----- Liver panel- WNL recheck in 6 weeks; Patient can start medication as per instructions * Telephone Encounter - Nava Simmons CMA - 11/11/2020 10:22 AM EDT Patient called back and verbalized understanding. documented in this encounter Plan of Treatment Not on file documented as of this encounter Visit Diagnoses Not on filedocumented in this encounter Additional Health Concerns Assessment Noted Time PHQ-9 Depression Total Score: 16 020 1:00 PM EDT A Body Mass Index follow-up plan has been documented for the patient 10/31/2019 12:43 PM EDT documented as of this encounter Care Teams Repairer Art Objects Relationship Specialty Start Date End Date Petar Cervantes MD [address] [facility] [facility] [address] PCP - General Internal Medicine 03/31/23 documented as of this encounter
--- OUTSIDE RECORDS SUMMARY | 2025-02-07 15:29 | XMS_ITS | CCD ---
Author Organization [facility]iniSy[facility] Care Team Providers Care Immunohematologist Name Role Phone HUGH GREEN Admitting Unavailable HUGH GREEN Attending Unavailable DR CHRIS RODRIGUEZ Consulting Unavailable HUGH GREEN Consulting Unavailable HUGH GREEN Admitting Unavailable HUGH GREEN Attending Unavailable LILIAN, DR SIMPSON LISTED Primary Care Unavaila HUGH Mckinnon Consulting Unavailable Kellie Eaton Consulting Unavailable Mónica Petar ADAMS Primary Care Provider [phone] KRISHAN CHAU Referring Unavailable MÓNICA, MUHAMID M Primary Care Unavailable MÓNICA, ADDIHAMID Fei Referring Unavailable MÓNICA, MUHAMID M Primary Care Unavailable Mónica Petar ADAMS Primary Care Provider PATITO COOK Referring Unavailable MÓNICA, MUHAMID M Primary Care Unavailable SHANDRA NAILS Attending Unavailable PRAKASH AUGUSTE Referring Unavailable MÓNICA, MUHAMID M Primary Care Unavailable SHANDRA NAILS Attending Unavailable MÓNICA, MUHAMID M Referring Unavailable MÓNICA, MUHAMID M Primary Care Unavailable PATITO COOK Attending Unavailable MÓNICA, MUHAMID M Referring Unavailable MÓNICA, MUHAMID M Primary Care Unavailable PATITO COOK Attending Unavailable MÓNICA, MUHAMID M Referring Unavailable MÓNICA, MUHAMID M Primary Care Unavailable Medications Current Medications Medication Drug Class(es) Dates Sig (Normalized) Sig (Original) acetaminophen 325 mg oral capsule (1 source) Start: 08-14-2024 take 1 capsule by mouth every six hours as needed Acetaminophen 325 mg capsule Active 325 MG PO Every 6 hours as needed August 14, 2024 12:00am acetaminophen 250 mg / aspirin 250 mg / caffeine 65 mg oral tablet (1 source) Platelet Aggregation Inhibitor, Nonsteroidal Anti-inflammatory Drug, Central Nervous System Stimulant, Methylxanthine Start: 08-14-2024 take 1 tablet by mouth every four to six hours as needed Aspirin-Acetaminoph en-Caffeine (Excedrin Extra Strength) 250-250-65 mg tablet Active 1 TAB PO EVERY 4-6 HOURS as needed August 14, 2024 12:00am buPROPion hydrochloride 75 mg oral tablet (4 sources) Aminoketone Start: 08-19-2023 End: 05-03-2024 take [...] 07/04/2023 Active ergocalciferol 1.25 mg oral capsule (14 sources) Provitamin D2 Compound Start: 04-12-2023 End: 05-03-2024 take 1 capsule by mouth every week ergocalciferol (DRISDOL) 1,250 mcg (50,000 unit) capsule Take 1 capsule by mouth once a week 8 capsule 0 06/02/2023 Active metroNIDAZOLE 500 mg oral tablet (20 sources) Nitroimidazole Antimicrobial Start: 10-05-2024 End: 10-12-2024 take 1 tablet by mouth at bedtime metroNIDAZOLE (FLAGYL) 500 mg tablet Take 1 tablet (500 mg total) by mouth in the morning and at bedtime for 7 days. 14 tablet 10/05/2024 10/12/2024 Active Start: 07-04-2023 End: 05-03-2024 metroNIDAZOLE (Metrogel Vagi naL) 0.75 % (37.5mg/5 [...] days. 70 g 0 05/18/2023 05/25/2023 Active Semaglutide/NAM/MeCbl 0.6 mg/0.5 mL (1 source) Start: 10-02-2024 Semaglutide/NAM/MeCbl 0.6 mg/0.5 mL Active 0.5 ML SUBCUT every week 2 October 02, 2024 12:00am [facility] Pre-filled Syringes using Semaglutide Base 0.6 mg/Niacinamide 0.5 mg and Methylcobalamin 2 mcg Dispense 2 mL - (Four 0.5 mL pre-filled syringes) sod sulf-pot chloride-mag sulf 1.479-0.188- 0.225 gram tablet (2 sources) Start: 05-03-2024 sod sulf-pot chloride-mag sulf 1.479-0.188- 0.225 gram tablet Indications: Blood in stool Please see instructional sheet given by physicians office. 24 tablet 05/03/2024 Active UNABLE TO FIND (10 sources) UNABLE TO FIND I nject 1 INJECTION under the skin every 30 (thirty) days. Vitamin D injection monthly Active vitamin b12 1 mg/ml injectable solution (10 sources) Vitamin B12 cyanocobalamin ( VITAMIN B-12) 1,000 mcg/mL injection Inject 1 mL (1,000 mcg total) into the appropriate muscle every 30 (thirty) days. Active Completed/Discontinued Medications Medication Drug Class(es) Dates Sig (Normalized) Sig (Original) Semaglutide/NAM/Me Cbl 0.3 mg/0.25 mL (1 source) Start: 08-14-2024 End: 10-02-2024 Semaglutide/NAM/MeCbl 0.3 mg/0.25 mL Discontinued 0.25 ML SUBCUT every week 05 22August 14, 2024 12:00am October 02, 2024 3:00pm [facility] Pre-filled Syringes using Semaglutide Base 0.3 mg/Niacinamide 0.25 mg and Methylcobalamin 1 mcg Dispense 1 mL - (Four 0.25 mL pre-filled syringes) Problems Active Problems Problem Classification Problem Date Documented Date Episodic/Chronic Administrative/social admission (9 sources) Patient encounter status; Translations: [Exercise counseling] 08-14-2024 Episodic Immunizations and screening for infectious disease (1 source) Encounter for screening for infections with a predominantly sexual mode of transmission; Translations: [Encounter for screening for infections with a predominantly sexual mode of transmission] Onset: 11-05-2024 Episodic Inflammatory diseases of female pelvic organs (3 sources) Bacterial vaginosis; Translations: [Acute vaginitis] 05-18-2023 Episodic Other connective tissue disease (4 sources) Plantar fascial fibromatosis; Translations: [PLANTAR FASCIAL FIBROMATOSIS] Onset: 07-09-2022 Episodic Other female genital disorders (1 source) Abnormal uterine bleeding; Translations: [Abnormal uterine and vaginal bleeding, unspecified] 06-20-2023 Chronic Other nutritional; endocrine; and metabolic disorders (2 sources) Body mass index 40+ - severely obese; Translations: [Body mass index (BMI) 40.0-44.9, adult] 08-14-2024 Chronic Other nutritional; endocrine; and metabolic disorders (2 sources) Body mass index (BMI) 40.0-44.9, adult; Translations: [Body Mass Index 40.0-44.9, adult] 08-14-2024 Chronic Other nutritional; endocrine; and metabolic disorders (2 sources) Morbid (severe) obesity due to excess calories; Translations: [Morbid obesity] 08-14-2024 Chronic Other nutritional; endocrine; and metabolic disorders (1 source) Abnormal weight gain; Translations: [Abnormal weight gain] 08-14-2024 Episodic Other nutritional; endocrine; and metabolic disorders (2 sources) Abnormal weight gain; Translations: [Abnormal weight gain] 08-14-2024 Episodic Other screening for suspected conditions (not mental disorders or infectious disease) (2 sources) Encounter for screening mammogram for malignant neoplasm of breast; Translations: [Encounter for other screening for malignant neoplasm of breast] Onset: 10-04-2024 Episodic Residual codes; unclassified (2 sources) Acquired absence of both cervix and uterus; Translations: [Acquired absence of both cervix and uterus] 08-14-2024 Episodic Unclassified (1 source) Gynecologic Exam Onset: 10-04-2024 Past or Other Problems Problem Classification Problem Date Documented Da te Episodic/Chronic Abdominal pain (4 sources) Lower abdominal pain; Translations: [Right lower quadrant pain] Onset: 06-27-2024 06-27-2024 Episodic E Codes: Adverse effects of medical drugs (20 sources) Adverse reaction to caffeine; Translations: [Adverse effect of caffeine, initial encounter] Onset: 10-31-2019 10-31-2019 Episodic Gastrointestinal hemorrhage (6 sources) Hematochezia; Translations: [Melena] Onset: 05-03-2024 04-20-2024 Episodic Genitourinary symptoms and ill-defined conditions (1 source) Blood in urine; Translations: [Hematuria, unspecified] 04-28-2023 Episodic Malaise and fatigue (1 source) Fatigue; Translations: [Other fatigue] 08-19-2023 Episodic Mood disorders (20 sources) Mood disorders Onset: 02-22-2023 02-22-2023 Noninfectious gastroenteritis (20 sources) Gastroenteritis; Translations: [Noninfective gastroenteritis and colitis, unspecified] Onset: 10-31-2019 10-31-2019 Episodic Other and unspecified benign neoplasm (1 source) Benign lipomatous neoplasm of skin and subcutaneous tissue of left leg; Translations: [Benign lipomatous neoplasm of skin and subcutaneous tissue of left leg] Onset: 06-21-2023 Episodic Other and unspecified benign neoplasm (2 sources) Lipoma of left lower limb; Translations: [Benign lipomatous neoplasm of skin and subcutaneous tissue of left leg] 04-28-2023 Episodic Other connective tissue disease (4 sources) Pain in right foot; Translations: [PAIN IN RIGHT FOOT] Onset: 03-23-2022 Episodic Other lower respiratory disease (20 sources) Cough; Translations: [Cough] Onset: 05-19-2021 05-19-2021 Episodic Other upper respiratory infections (20 sources) Viral upper respiratory tract infection; Translations: [Acute upper respiratory infection, unspecified] Onset: 05-19-2021 05-19-2021 Episodic Spondylosis; intervertebral disc disorders; other back problems (20 sources) Sciatica; Translations: [Sciatica, unspecified side] Onset: 01-25-2019 01-25-2019 Episodic Unclassified (20 sources) Onset: 10-31-2019 10-31-2019 Results Test Name Value Interpretation Reference Range Facility TRICHOMONAS BY PCRon 025 TRICHOMONAS BY PCR TRICHOMONAS PCR Not Detected Trichomonas vaginalis not detected. Assay methodology is nucleic acid amplification by real-time PCR for detection of Trichomonas vaginalis DNA performed on [employer] Instrument System. Normal [facility] Comment on above: Performed By: #### T RKPCR #### [facility] ([facility]) [address] [place] [address] VIR Trichomonas by PCRon 025 Interpretation and review of laboratory results Normal [facility] T. vaginalis rRNA Probe Ql (Genital specimen) Not detected Not Detected [facility] Comment on above: Trichomonas vaginali s not detected. Assay methodology is nucleic acid amplification by real-time PCR for detection of Trichomonas vaginalis DNA performed on [employer] Instrument System. [facility] UROGENITAL UREAPLASMA AND MY COPLASMA SPECIES BY PCRon 11-05-2024 MYCOPLASMA GENITALIUM Not detected Normal [facility] Comment on above: Result Comment: INTE RPRETIVE INFORMATION: Urogenital Ureaplasma and Mycoplasma Species by PCR A negative result does not rule out the presence of PCR inhibitors in the patient specimen or test-specific nucleic acid in concentrations below the level of detection by this test. This test was developed and its performance characteristics determined by [employer] [facility]. It has not been cleared or approved by the [place] Food and Drug Administration. This test was performed in a CLIA certified laboratory and is intended for clinical purposes. Performed By: [facility] [address] [place] [id number] [employer] Driller: Guanaco Ross MD, PhD CLIA Number: [id number] Performed By: #### U REMYC #### [facility] ([facility]) [address] [place] [address] VIR MYCOPLASMA HOMINIS Not detected Normal [facility] Comment on above: Performed By: #### U REMYC #### [facility] ([facility]) [address] [place] [address] VIR UREAPLASMA AND MYCOPLASMA SOURCE Genital Normal [facility] Comment on above: Performed By: #### U REMYC #### [facility] ([facility]) [address] [place] [address] VIR UREAPLASMA PARVUM Not detected Normal [facility] Comment on above: Performed By: #### U REMYC #### [facility] ([facility]) [address] [place] [address] VIR UREAPLASMA UREALYTICUM Not detected Normal [facility] Comment on above: Performed By: #### U REMYC #### [facility] ([facility]) [address] [place] [address] VIR VAGINITIS PANEL PCRon 2024 VAGINITIS PANEL PCR BACT. VAGINOSIS DNA Detected Qualitative results are reported based on detection and quantitation of targeted organism markers which include: Lactobacillus spp. (L. crispatus and L. jensenii), Gardnerella vaginalis, Atopobium vaginae, Bacterial Vaginosis Associated Bacteria-2 (BVAB-2) and Megasphaera-1. CASI SPECIES DNA Not Detected Casi species not detected include: C. albicans, C. tropicalis, C. parapsilosis or C. dubliniensis. CASI KRUSEI DNA Not Detected No Casi krusei detected. CASI GLABRATA DNA Not Detected No Casi glabrata detected. TRICHOMONAS VAG DNA Detected Trichomonas vaginalis detected. BD MAX Vaginal Panel has not been evaluated for patients under 18 years old. Results for these patients should be reviewed and assessed in accordance with clinical presentation to determine patient diagnosis. Normal [facility] Comment on above: Performed By: #### V PPCR #### [facility] ([facility]) [address] [place] [address] VIR Surgical Pathologyon 024 Surgical Pathology Normal [facility] Comment on above: Result Comment: [facility] [address] [place] [address] Surgical Pathology Consultation Patient Name:JAZLYN ARAIZA:1980 (Age: 43)Gender:FTaken:06/21/2023eported:06/28/2023hysician(s):Oscar Chau MD ([phone])Copy To: Rec. #:[id number]: #[id number] Final Pathologic Diagnosis Soft tissue, left lower extremity, excision: Lipoma. Report Electronically Signed Out rg/4Rsilver Mendoza MD Interpretation performed at [facility], [address] [place] [address], License number: [id number]. Clinical History Lipoma of left lower extremity D17.24. Gross Description Received in formalin labeled NING, left lower leg are partially encapsulated fragments of shaggy, ragged adipose tissue, 2.5 x 2 x 1 cm in aggregate. The capsular surfaces are hernandez-pink, membranous and glistening. Concrete Gun Operator sections are submitted in a single cassette. (1, ss, [id number], m1) JSalud walls/06/22/2023O Specimen(s) Received Left lower extremity Fee Codes(s): 1; 82169 MRI ANKLE RT WO CONon 2022 MRI [...] by: KELLIE EATON Date: 2022-07-12 11:54 Normal [facility] Vital Signs Date Time Vital Sign Value Performing Clinician Lauren law 11-05-2024 16:01-0400 Diastolic blood pressure 68 mm[Hg] Patito Cook APRN-MANAGER RESEARCH Work Phone: [facility] [employer] [facility] 11-05-2024 16:01-0400 Systolic blood pressure 101 mm[Hg] Patito Cook ETCHER APPRENTICE-MANAGER RESEARCH Work Phone: [facility] [employer] [facility] 10-04-2024 14:50-0400 Body mass index (BMI) [Ratio] 41.3 kg/m2 Patito Cook ETCHER APPRENTICE-MANAGER RESEARCH Work Phone: [facility] 10-04-2024 14:50-0400 Body weight 102.42 kg Patito Cook ETCHER APPRENTICE-MANAGER RESEARCH Work Phone: [facility] 10-04-2024 14:50-0400 Diastolic blood pressure 78 mm[Hg] Patito Cook ETCHER APPRENTICE-MANAGER RESEARCH Work Phone: [facility] 10-04-2024 14:50-0400 Systolic blood pressure 108 mm[Hg] Patito Cook ETCHER APPRENTICE-MANAGER RESEARCH Work Phone: [facility] 10-02-2024 14:32-0400 Body height 158.09 cm [facility] 10-02-2024 14:32-0400 Body mass index (BMI) [Ratio] 40.7 kg/m2 [facility] 10-02-2024 14:32-0400 Body weight 101.9 kg [facility] 10-02-2024 14:32-0400 Diastolic blood pressure 71 mm[Hg] [facility] 10-02-2024 14:32-0400 Heart rate 79 /min [facility] 10-02-2024 14:32-0400 Respiratory rate 18 /min [facility] 10-02-2024 14:32-0400 Systolic blood pressure 104 mm[Hg] [facility] 08-14-2024 10:47-0400 Body height 158.09 cm [facility] 08-14-2024 10:47-0400 Body mass index (BMI) [Ratio] 42.9 kg/m2 [facility] 08-14-2024 10:47-0400 Body weight 107.25 kg [facility] 08-14-2024 10:47-0400 Diastolic blood pressure 76 mm[Hg] [facility] 08-14-2024 10:47-0400 Heart rate 73 /min [facility] 08-14-2024 10:47-0400 Respiratory rate 16 /min [facility] 08-14-2024 10:47-0400 SaO2% (BldA) [Mass fraction] 97 % [facility] 08-14-2024 10:47-0400 Systolic blood pressure 127 mm[Hg] [facility] 06-27-2024 11:00-0500 Body height 157.5 cm Shandra Simentaloll ETCHER APPRENTICE-MANAGER RESEARCH Work Phone: [facility] 06-27-2024 11:00-0500 Body mass index (BMI) [Ratio] 43.24 kg/m2 Shandra Nails ETCHER APPRENTICE-MANAGER RESEARCH Work Phone: [facility] 06-27-2024 11:00-0500 Body weight 107.23 kg Shandra Simentaloll ETCHER APPRENTICE-MANAGER RESEARCH Work Phone: [facility] 06-27-2024 11:00-0500 Diastolic blood pressure 71 mm[Hg] Shandra Nails ETCHER APPRENTICE-MANAGER RESEARCH Work Phone: [facility] 06-27-2024 11:00-0500 Heart rate 75 /min Shandra Simentaloll ETCHER APPRENTICE-MANAGER RESEARCH Work Phone: [facility] 06-27-2024 11:00-0500 Systolic blood pressure 121 mm[Hg] Shandra Simentaloll ETCHER APPRENTICE-MANAGER RESEARCH Work Phone: [facility] 05-10-2024 11:55-0500 Body height 157.5 cm Pmh 1 [facility] 05-10-2024 11:55-0500 Body mass index (BMI) [Ratio] 42.98 kg/m2 Pmh 1 [facility] 05-10-2024 11:55-0500 Body weight 106.59 kg Pmh 1 [facility] 05-03-2024 09:00-0500 Body height 157.5 cm Shandra Simentaloll ETCHER APPRENTICE-MANAGER RESEARCH Work Phone: [facility] 05-03-2024 09:00-0500 Body mass index (BMI) [Ratio] 43.27 kg/m2 Shandra Nails ETCHER APPRENTICE-MANAGER RESEARCH Work Phone: [facility] 05-03-2024 09:00-0500 Body weight 107.32 kg Shandra Nails ETCHER APPRENTICE-MANAGER RESEARCH Work Phone: [facility] 05-03-2024 09:00-0500 Diastolic blood pressure 73 mm[Hg] Shandra Nails ETCHER APPRENTICE-MANAGER RESEARCH Work Phone: [facility] 05-03-2024 09:00-0500 Heart rate 80 /min Shandra Nails APRN-MANAGER RESEARCH Work Phone: [facility] 05-03-2024 09:00-0500 Systolic blood pressure 139 mm[Hg] Shandra Nails ETCHER APPRENTICE-MANAGER RESEARCH Work Phone: [facility] 08-19-2023 09:51-0400 Body height 157.5 cm Petar Sales MD Work Phone: [facility] 08-19-2023 09:51-0400 Body mass index (BMI) [Ratio] 44.34 kg/m2 Petar Sales MD Work Phone: [facility] 08-19-2023 09:51-0400 Body temperature 98.1 [degF] Petar Sales MD Work Phone: [facility] 08-19-2023 09:51-0400 Body weight 109.95 kg Petar Sales MD Work Phone: [facility] 08-19-2023 09:51-0400 Diastolic blood pressure 70 mm[Hg] Petar Sales MD Work Phone: [facility] 08-19-2023 09:51-0400 Heart rate 74 /min Petar Sales MD Work Phone: [facility] 08-19-2023 09:51-0400 SaO2% (BldA) [Mass fraction] 97 % Petar Sales MD Work Phone: [facility] 08-19-2023 09:51-0400 Systolic blood pressure 122 mm[Hg] Petar Sales MD Work Phone: [facility] 06-21-2023 13:24-0500 Body height 157.5 cm Krishan Chau MD Work Phone: [facility] 06-21-2023 13:24-0500 Body mass index (BMI) [Ratio] 43.13 kg/m2 Krishan Chau MD Work Phone: [facility] 06-21-2023 13:24-0500 Body weight 106.96 kg Krishan Chau MD Work Phone: [facility] 06-21-2023 13:24-0500 Diastolic blood pressure 76 mm[Hg] Krishan Chau MD Work Phone: [facility] 06-21-2023 13:24-0500 Heart rate 72 /min Krishan Chau MD Work Phone: [facility] 06-21-2023 13:24-0500 Systolic blood pressure 117 mm[Hg] Krishan Chau MD Work Phone: [facility] 06-20-2023 09:26-0500 Body mass index (BMI) [Ratio] 43.31 kg/m2 Irais Jacques MD Work Phone: [facility] 06-20-2023 09:26-0500 Body weight 107.41 kg Irais Jacques MD Work Phone: [facility] 06-20-2023 09:26-0500 Diastolic blood pressure 82 mm[Hg] Irais Jacques MD Work Phone: [facility] 06-20-2023 09:26-0500 Systolic blood pressure 117 mm[Hg] Irais Jacques MD Work Phone: [facility] 05-18-2023 11:54-0500 Body mass index (BMI) [Ratio] 44.37 kg/m2 Petar Sales MD Work Phone: [facility] 05-18-2023 11:54-0500 Body temperature 97.81 [degF] Petar Sales MD Work Phone: [facility] 05-18-2023 11:54-0500 Body weight 110.04 kg Petar Sales MD Work Phone: [facility] 05-18-2023 11:54-0500 Diastolic blood pressure 76 mm[Hg] Petar Sales MD Work Phone: [facility] 05-18-2023 11:54-0500 Systolic blood pressure 118 mm[Hg] Petar Sales MD Work Phone: [facility] 04-28-2023 08:31-0500 Body height 157.5 cm Petar Sales MD Work Phone: [facility] 04-28-2023 08:31-0500 Body mass index (BMI) [Ratio] 43.64 kg/m2 Petar Sales MD Work Phone: [facility] 04-28-2023 08:31-0500 Body temperature 98.01 [degF] Petar Sales MD Work Phone: [facility] 04-28-2023 08:31-0500 Body weight 108.23 kg Petar Sales MD Work Phone: [facility] 04-28-2023 08:31-0500 Diastolic blood pressure 80 mm[Hg] Petar Sales MD Work Phone: [facility] 04-28-2023 08:31-0500 Heart rate 56 /min Petar Sales MD Work Phone: [facility] 04-28-2023 08:31-0500 Systolic blood pressure 130 mm[Hg] Petar Sales MD Work Phone: [facility] Encounters Encounter Date Encounter Type Care Provider Facility Start: 12-10-2024 End: 12-11-2024 Telephone encounter Dhara Joe RN [facility] Start: 11-06-2024 End: 01-06-2025 Follow-up encounter Patito Odonnell Erastosonam ETCHER APPRENTICE-MANAGER RESEARCH Work Phone: [facility] Comment on above: Trichomonas by PCR, Urogenital Ureaplasma and Mycoplasma Species by PCR: Genital Swab Start: 11-05-2024 End: 11-05-2024 Office outpatient visit 15 minutes Patito Paredessonam ETCHER APPRENTICE-MANAGER RESEARCH Work Phone: [facility] Comment on above: Screening examinatio n for STI (Primary Dx) Start: 11-05-2024 End: 11-05-2024 ambulatory [facility] Start: 10-05-2024 End: 10-05-2024 Orders Only Patito Blas Erastosonam ETCHER APPRENTICE-MANAGER RESEARCH Work Phone: [facility] Start: 10-04-2024 End: 10-04-2024 Patient encounter procedure Patito Cook ETCHER APPRENTICE-MANAGER RESEARCH [facility] Work Phone: Start: 10-04-2024 End: 10-04-2024 Periodic preventive med est patient 40-64yrs Patito Odonnell Erastosonam ETCHER APPRENTICE-MANAGER RESEARCH Work Phone: [facility] Comment on above: Well woman exam with routine gynecological exam (Primary Dx); Encounter for screening mammogram for malignant neoplasm of breast; Encounter for screening breast examination; Acute vaginitis Start: 10-04-2024 End: 10-04-2024 ambulatory [facility] Start: 10-04-2024 Encounter for gynecological examination (general) (routine) without abnormal findings [facility] Start: 10-04-2024 End: 10-04-2024 Documentation procedure Patito Cook ETCHER APPRENTICE-MANAGER RESEARCH [facility] Phone[facility] Start: 10-02-2024 End: 10-02-[address] [facility] Work Phone: Start: 10-02-2024 End: 10-02-2024 Patient encounter procedure [facility] Work Phone: Start: 09-21-2024 End: 09-21-2024 Telephone encounter [facility] General [facility] Start: 08-14-2024 End: 08-14-2024 Patient encounter procedure [facility] Work Phone: Start: 06-27-2024 End: 06-27-2024 Office outpatient visit 25 minutes Shandra Nails ETCHER APPRENTICE-MANAGER RESEARCH Work Phone: [facility] Comment on above: Abdominal pain, bila teral lower quadrant (Primary Dx) Start: 06-27-2024 End: 06-27-2024 ambulatory [facility] Start: 05-10-2024 End: 05-10-2024 ambulatory h Pat Phone Call Provider 1 [facility] - Pre Admit Start: 05-10-2024 End: 05-10-2024 ambulatory [place] Start: 05-03-2024 End: 05-03-2024 Office outpatient new 30 minutes Shandra Nails ETCHER APPRENTICE-MANAGER RESEARCH Work Phone: [facility] Comment on above: Blood in stool (Prim nava Dx) Start: 05-03-2024 End: 05-03-2024 ambulatory [facility] Start: 04-20-2024 End: 04-20-2024 Orders Only Prakash Auguste ETCHER APPRENTICE-MANAGER RESEARCH Work Phone: [facility] Comment on above: Blood in stool (Prim nava Dx) Start: 08-22-2023 End: 08-22-2023 Telephone encounter Petar Sales MD Work Phone: [facility] - Sleep Disorders Comment on above: Sleep Lab (COMP) Start: 08-19-2023 End: 08-19-2023 Office outpatient visit 25 minutes Petar Sales MD Work Phone: [facility] Comment on above: Other fatigue (Prima ry Dx) Start: 07-01-2023 Orders [facility] Start: 06-30-2023 Telephone encounter [facility] General [facility] Start: 06-27-2023 Orders Only Dhara Joe RN [facility] [place] Physicians Obstetrics/Gynecolog y Start: 06-21-2023 End: 06-21-2023 ambulatory [facility] Start: 06-21-2023 End: 06-21-2023 Office outpatient new 30 minutes Krishan Chau MD Work Phone: [facility] General Surgery Comment on above: Lipoma of left lower extremity (Primary Dx) Start: 06-20-2023 End: 06-20-2023 Office outpatient new 30 minutes Irais Jacques MD Work Phone: [facility] Obstetrics/Gynecolog y Comment on above: Abnormal uterine ble eding (AUB) (Primary Dx); Vaginal infection Start: 06-02-2023 Refill Petar Sales MD Work Phone: [facility] Start: 05-18-2023 End: 05-18-2023 Office outpatient visit 15 minutes Petar Sales MD Work Phone: [facility] Comment on above: Bacterial vaginosis (Primary Dx) Start: 04-28-2023 End: 04-28-2023 Office outpatient visit 25 minutes Petar Sales MD Work Phone: [facility] Comment on above: Lipoma of left lower extremity (Primary Dx); Hematuria, unspecified type Start: 07-09-2022 End: 07-10-2022 ambulatory [facility] Facility: Start: 03-23-2022 End: 03-24-2022 ambulatory [facility] Facility: Procedures Date Procedure Procedure Detail Performing Clinician Start: 11-05-2024 Iadna trichomonas vaginalis amplified probe tech Patito Cook ETCHER APPRENTICE-MANAGER RESEARCH Work Phone: Start: 06-27-2024 Follow-up visit Follow-up SHANDRA NAILS Start: 02-22-2023 Adult depression screening assessment Petar Sales MD Work Phone: Start: 12-04-2020 H/O: hysterectomy Status post hysterectomy Petar Sales MD Work Phone: H/O: hysterectomy Hx of hysterectomy Plan of Treatment Date Care Activity Detail Author Start: 10-04-2025 Adult BMI Screening Adult BMI Screening [facility] Start: 10-04-2025 Tobacco Screening Tobacco Screening [facility] Start: 06-27-2025 Adult BMI Screening Adult BMI Screening [facility] Start: 06-27-2025 Tobacco Screening Tobacco Screening [facility] Start: 05-10-2025 Adult BMI Screening Adult BMI Screening [facility] Start: 05-10-2025 Tobacco Screening Tobacco Screening [facility] Start: 05-03-2025 Adult BMI Screening Adult BMI Screening [facility] Start: 12-24-2024 Influenza vaccination Influenza Vaccine [facility] Start: 10-04-2024 End: 10-04-2025 DBT Breast - bilateral screening Mammography screening bilateral with CAD Imaging Routine Well woman exam with routine gynecological exam Encounter for screening breast examination Expected: 10/04/2024, Expires: 10/04/2025 [facility] Work Phone: Comment on above: Expected: 10/04/2024, Expires: Start: 09-26-2024 End: 09-26-2024 Patient encounter procedure 09/26/2024 3:00 PM EDT Office Visit [facility] [address] [place] [phone] Patito Cook, ETCHER APPRENTICE-MANAGER RESEARCH [address] [facility] [address] [place], [place] [phone] [facility] Obstetrics/Gynecolo gy Start: 08-18-2024 Adult BMI Screening Adult BMI Screening [facility] Start: 08-18-2024 Tobacco Screening Tobacco Screening [facility] Start: 06-27-2024 End: 06-27-2025 CT Abdomen and Pelvis W contrast IV CT abdomen and pelvis with contrast Imaging Routine Abdominal pain, bilateral lower quadrant Expected: 06/27/2024, Expires: 06/27/2025 [facility] Work Phone: Comment on above: Expected: 06/27/2024, Expires: Start: 06-21-2024 Adult BMI Screening Adult BMI Screening [facility] Start: 06-21-2024 Tobacco Screening Tobacco Screening [facility] Start: 06-20-2024 Adult BMI Screening Adult BMI Screening [facility] Start: 06-20-2024 Tobacco Screening Tobacco Screening [facility] Start: 05-18-2024 Adult BMI Screening Adult BMI Screening [facility] Start: 05-18-2024 Tobacco Screening Tobacco Screening [facility] Start: 05-18-2024 End: 05-18-2024 Admission to same day surgery center 05/18/2024 9:00 AM EST - 05/18/2024 9:30 AM EST Surgery [facility] - Surgery [address] [place] [phone] Krishan Chau MD [address] [place] [phone] COLONOSCOPY DIAGNOSTIC / SCREENING [19044 (CPT )] [facility] - Surgery Comment on above: COLONOSCOPY DIAGNOSTIC / SCREENING [4537 8 (CPT )] Start: 05-18-2024 End: 05-18-2024 Colonoscopy flx dx w/collj spec when pfrmd COLONOSCOPY DIAGNOSTIC / SCREENING rectal bleeding 05/18/2024 9:00 AM EST [facility] Start: 05-18-2024 Subsequent hospital visit by physician 05/18/2024 9:00 AM EST Hospital Encounter [facility] - Surgery [address] [place] [phone] Krishan Chau MD [address] [place] [phone] [facility] - Surgery Start: 05-10-2024 End: 05-10-2024 ambulatory 05/10/2024 2:20 PM EST Support Visit [facility] - Pre Admit [address] [place] [phone] [facility] - Pre Admit Start: 04-30-2024 End: 04-30-2024 Patient encounter procedure 04/30/2024 7:40 AM EST Office Visit [facility] [address] [place] [address] [place] [phone] Prakash Auguste APRN-CNP [address] [place] [phone] [facility] Start: 04-28-2024 Adult BMI Screening Adult BMI Screening [facility] Start: 04-28-2024 Tobacco Screening Tobacco Screening [facility] Start: 02-23-2024 Depression Screening Depression Screening [facility] Start: 12-25-2023 COVID-19 Vaccine ( season) COVID-19 Vaccine ( season) [facility] Start: 12-25-2023 Influenza vaccination Influenza Vaccine [facility] Start: 10-04-2023 End: 10-04-2023 Telemedicine consultation with patient 10/04/2023 7:45 AM EDT Telemedicine [facility] [address] [place] [phone] Petar Sales MD [address] [place] [address] [facility] Start: 08-19-2023 End: 08-18-2024 CBC W Auto Differential panel - Blood CBC auto differential Lab Routine Other fatigue Expected: 08/19/2023 (Approximate), Expires: 08/18/2024 [facility] Work Phone: Comment on above: Expected: 08/19/2023 (Approximate), Expi res: 08/18/2024 Start: 08-19-2023 End: 08-18-2024 Comprehensive metabolic 2000 panel - Serum or Plasma Comprehensive metabolic panel Lab Routine Other fatigue Expected: 08/19/2023 (Approximate), Expires: 08/18/2024 [facility] [employer] [facility] Comment on above: Expected: 08/19/2023 (Approximate), Expi res: 08/18/2024 Start: 08-19-2023 End: 08-18-2024 Lipid 1996 panel - Serum or Plasma Lipid profile Lab Routine Other fatigue Expected: 08/19/2023 (Approximate), Expires: 08/18/2024 [facility] [employer] [facility] Comment on above: Expected: 08/19/2023 (Approximate), Expi res: 08/18/2024 Start: 08-19-2023 End: 08-18-2024 Polysomnography 4 or more parameters with PAP titration Polysomnography 4 or more parameters with PAP titration Sleep Center Routine Other fatigue Expected: 08/19/2023 (Approximate), Expires: 08/18/2024 [facility] Comment on above: Expected: 08/19/2023 (Approximate), Expi res: 08/18/2024 Start: 08-19-2023 End: 08-18-2024 PSG Diagnostic PSG Diagnostic [facility] Routine Other fatigue Expected: 08/19/2023 (Approximate), Expires: 08/18/2024 [facility] [employer] [facility] Comment on above: Expected: 08/19/2023 (Approximate), Expi res: 08/18/2024 Start: 08-19-2023 End: 08-18-2024 SARS COV 2 (COVID-19) SARS COV 2 (COVID-19) Microbiology STAT Other fatigue Expected: 08/19/2023 (Approximate), Expires: 08/18/2024 [facility] Comment on above: Expected: 08/19/2023 (Approximate), Expi res: 08/18/2024 Start: 08-19-2023 End: 08-18-2024 TSH with Reflex TSH with Reflex Lab Routine Other fatigue Expected: 08/19/2023 (Approximate), Expires: 08/18/2024 [facility] Comment on above: Expected: 08/19/2023 (Approximate), Expi res: 08/18/2024 Start: 08-19-2023 End: 08-18-2024 Vitamin D 25 hydroxy Vitamin D 25 hydroxy Lab Routine Other fatigue Expected: 08/19/2023 (Approximate), Expires: 08/18/2024 [facility] Comment on above: Expected: 08/19/2023 (Approximate), Expi res: 08/18/2024 Start: 06-21-2023 End: 06-21-2023 Patient encounter procedure 06/21/2023 1:30 PM EST Office Visit [facility] [address] [place] [phone] Krishan Chau MD [address] [place] [phone] [facility] Start: 06-20-2023 End: 06-20-2023 Patient encounter procedure 06/20/2023 9:15 AM EST Office Visit [facility] [address] [facility] [address] [facility] [place] [phone] Irais Jacques MD [address] [facility] [place] [address] [facility] Start: 05-25-2023 End: 05-25-2023 Patient encounter procedure 05/25/2023 11:00 AM EST Office Visit [facility] [address] [place] [phone] Aron Ewing, [address] [place] [address] [facility] Start: 12-24-2022 COVID-19 Vaccine ( season) COVID-19 Vaccine ( season) [facility] [employer] [facility] Start: 12-24-2022 Influenza vaccination Influenza Vaccine [facility] Start: 2000 DTaP,Tdap and Td Vaccines (1 - Tdap) DTaP,Tdap and Td Vaccines (1 - Tdap) [facility] [employer] [facility] Start: 1999 Adult BMI Follow Up Plan Adult BMI Follow Up Plan [facility] End: 05-03-2025 Colonoscopy Colonoscopy GI Routine Blood in stool 1 Occurrences starting 05/03/2024 until 05/03/2025 [employer] Work Phone: Comment on above: 1 Occurrences starting 05/03/2024 until 05/03/2025 Colonoscopy flx dx w/collj spec when pfrmd COLONOSCOPY DIAGNOSTIC / SCREENING rectal bleeding [facility] [employer] [facility] End: 08-18-2024 Cyanocobalamin vitamin b-12 Vitamin B12 Lab Routine Other fatigue 1 Occurrences starting 08/19/2023 until 08/18/2024 [facility] [employer] Comment on above: 1 Occurrences starting 08/19/2023 until 08/18/2024 End: 08-18-2024 Folate Folate Lab Routine Other fatigue 1 Occurrences starting 08/19/2023 until 08/18/2024 [facility]: 1 Occurrences starting 08/19/2023 until 08/18/2024 End: 06-27-2025 IgA [Mass/volume] in Serum or Plasma IGA Lab Routine Abdominal pain, bilateral lower quadrant 1 Occurrences starting 06/27/2024 until 06/27/2025 [facility] Comment on above: 1 Occurrences starting 06/27/2024 until 06/27/2025 End: 06-21-2024 Surgical Pathology Surgical Pathology Pathology and Cytology Routine Lipoma of left lower extremity 1 Occurrences starting 06/21/2023 until 06/21/2024 [employer] Work Phone: Comment on above: 1 Occurrences starting 06/21/2023 until 06/21/2024 End: 06-27-2025 Transglutaminase IgA Transglutaminase IgA Lab Routine Abdominal pain, bilateral lower quadrant 1 Occurrences starting 06/27/2024 until 06/27/2025 [facility] [employer] Comment on above: 1 Occurrences starting 06/27/2024 until 06/27/2025 End: 06-20-2024 Urogenital Ureaplasma and Mycoplasma Species by PCR: Genital Swab Urogenital Ureaplasma and Mycoplasma Species by PCR: Genital Swab Lab Routine Abnormal uterine bleeding (AUB) 1 Occurrences starting 06/20/2023 until 06/20/2024 [facility]: Comment on above: 1 Occurrences starting 06/20/2023 until 06/20/2024 Urogenital Ureaplasm a and Mycoplasma Species by PCR: Genital Swab Urogenital Ureaplasma and Mycoplasma Species by PCR: Genital Swab Lab Routine Abnormal uterine bleeding (AUB) 06/20/2023 3:25 PM EST [facility] Urogenital Ureaplasm a and Mycoplasma Species by PCR: Genital Swab Urogenital Ureaplasma and Mycoplasma Species by PCR: Genital Swab Lab Routine Acute vaginitis 10/04/2024 3:16 PM EDT [facility] Urogenital Ureaplasm a and Mycoplasma Species by PCR: Genital Swab Urogenital Ureaplasma and Mycoplasma Species by PCR: Genital Swab Lab Routine Screening examination for STI 11/05/2024 4:24 PM EDT [facility] Work [facility]: Vaginitis Panel PCR Vaginitis Pa zach PCR Microbiology Routine Acute vaginitis 10/04/2024 3:16 PM EDT [facility] Immunizations Immunization Date Immunization Notes Care Provider Fa cili 02-05-2022 influenza virus vaccine, unspecified formulation Petar Sales MD Work Phone: [facility] Payers Date Payer Category Payer Managed Care, Other (non HMO) [employer] [id number] 2023 Unknown [id number] 2023 Managed Care Other (unspecified) [id number] PLAN [id number] 2023 Private Health Insurance [id number] 2023 Private Health Insurance [id number] 1981 Unknown [id number] 1981 Unknown [id number] 1981 Unknown [id number] [id number] 1981 Unknown [id number] [id number] 1981 Unknown [id number] [id number] 1981 Unknown [id number] [id number] 1981 Unknown [id number] [id number] 1981 Unknown [id number] [id number] 1981 Unknown [id number] [id number] 1959 Unknown [id number] Social History Date Type Detail Facility Start: 09-02-2022 End: 08-14-2024 Tobacco smoking status NHIS Never smoked tobacco [facility] Start: 09-02-2022 Tobacco use and exposure Smoke less tobacco non-user [facility] Start: 08-19-2023 End: 10-04-2024 Alcoholic beverage intake Current drinker of alcohol (finding) [facility] Start: 04-26-2019 End: 05-19-2020 History of Social function [facility] Start: 04-26-2019 End: 05-19-2020 Social connection and isolation panel [facility] Frequency of Communication with Friends and Family More than three times a week [facility] Start: 04-26-2019 Education 12 [facility] Start: 03-18-2018 Alcohol Comment occasional [facility] Start: 1980 Sex assigned at Female P [facility] Start: 11-28-2014 End: 10-02-2024 Sex Female (finding) [facility] Start: 01-22-2022 Gender identity Identifies as female gender (finding) [facility] NEGATED: Highlighted row [facility] Clinical Notes 03-24-2022 to 12-10-2024 Telephone Encounter - Dhara Joe RN - 12/10/2024 3:50 PM EDTTelephone Encounter - Mylene Canales MD - 12/10/2024 3:50 PM EDTTelephone Encounter - Dhara Joe RN - 12/10/2024 3:50 PM EDT Note Date & Type Note Facility 12-10-2024 Miscellaneous Notes Hx of hysterectomy 2020. Pt had food poisoning last Tuesday/ with severe N/V and diarrhea. Pt states had pink anal bleeding yesterday and today has anal and vaginal bleeding and is bright red. Pt asking if this could be normal due to being sick, or if she should come in to be evaluated. Please advise. If persistent, can come in for exam please Patient notified documented in this encounter [facility] 12-10-2024 Telephone encounter Note Hx of hysterectomy 2020. Pt had food poisoning last Tuesday/ with severe N/V and diarrhea. Pt states had pink anal bleeding yesterday and today has anal and vaginal bleeding and is bright red. Pt asking if this could be normal due to being sick, or if she should come in to be evaluated. Please advise. [facility] 12-10-2024 Telephone encounter Note If persistent, can come in for exam please [facility] Work Phone: 12-10-2024 Telephone encounter Note [facility] notified [facility] 11-05-2024 History of Presen t illness Narrative Subjective Jazlyn Araiza is a 44 y.o. female patient who presents for re-swab for trich and MP/UP. She completed treatment and denies any vaginal symptoms today. Her partner completed treatment as well, she has not been sexually active since treatment. The following portions of the patient's history were reviewed and updated as appropriate: allergies, current medications, past family history, past medical history, past social history, past surgical history, problem list, and medication reconciliation was completed including current medication and post discharge medication. Patient's last menstrual period was 10/28/2020. Menstrual History: OB History 3 Para 1 Term 1 AB 2 Living 2 SAB IAB Ectopic 2 Multiple 1 Live Births 2 Review of Systems 10 or more systems reviewed and all negative except stated in HPI Objective Vitals: 11/05/24 1601 BP: 101/68 Urine dipstick: not done Physical Exam Constitutional: Appearance: Normal appearance. HENT: Head: Normocephalic and atraumatic. Eyes: Extraocular Movements: Extraocular movements intact. Pulmonary: Effort: Pulmonary effort is normal. Abdominal: Hernia: There is no hernia in the left inguinal area or right inguinal area. Genitourinary: General: Normal vulva. Labia: Right: No rash, tenderness or lesion. Left: No rash, tenderness or lesion. Vagina: Normal. Cervix: Normal. Musculoskeletal: General: Normal range of motion. Cervical back: Normal range of motion. Lymphadenopathy: Lower Body: No right inguinal adenopathy. No left inguinal adenopathy. Skin: General: Skin is warm and dry. Neurological: General: No focal deficit present. Mental Status: She is alert. Psychiatric: Mood and Affect: Mood normal. Assessment/Plan Diagnoses and all orders for this visit: Screening examination for STI - Urogenital Ureaplasma and Mycoplasma Species by PCR: Genital Swab - Trichomonas by PCR Treat based on results Ok to communicate through [employer]? yes Return to office if symptoms persist or worsen. AARTI Qiu 11/05/24 1631 documented in this encounter [facility] 10-05-2024 History of Presen t illness Narrative Meds sent for BV and trichomonas. Discussed need for partner treatment, declines meds sent for him at this time. AARTI Qiu 10/05/242011 documented in this encounter [facility] 10-04-2024 History of Presen t illness Narrative Pt needing work note for appt today documented in this encounter [facility] 10-04-2024 History of Presen t illness Narrative Images from the original note were not included. Chief Complaint: Well-woman gynecology exam SUBJECTIVE HPI Jazlyn Araiza is a 44 y.o. who presents for her annual well-woman exam. She has no breast concerns, she has some vaginal discharge with odor. She also notes some vaginal and urinary discomfort. No concerns for STIs today. Sexually active: yes Relationship status: committed STD history: no Last pap: pre-hyst Pap history: neg Contraception: hyst Family history of breast, ovarian, cervical, uterine or colon cancer: aunt - colon, aunt - breast Mammogram: 04/28/23 neg Self Breast exam: yes Colonoscopy: yes, normal Work: desk Smoking status: no Children: 2, c/s The following portions of the patient's history were reviewed and updated as appropriate: allergies, current medications, past family history, past medical history, past social history, past surgical history and problem list. Review of Systems 10 or more systems reviewed and all negative except stated in hpi. Allergies No Known Allergies ObGyn Hx OB History Para Term AB Living 3 1 1 2 2 SAB IAB Ectopic Multiple Live Births 2 1 2 # Outcome Date GA Lbr Trip/2nd Weight Sex Type Anes PTL Lv 3A 06/18/13 36w0d F DEBORAH 3B 06/18/13 36w0d M DEBORAH 2 Ectopic 1 Ectopic Medical Hx Past Medical History: Diagnosis Date Anxiety Back pain Migraine Rectal bleeding Recurrent UTI Surgical Hx Past Surgical History: Procedure Laterality Date ABDOMINAL HYSTERECTOMY N/A 12/03/2020 Performed by Taty Saul MD at [place] [facility] BARTHOLIN GLAND CYST EXCISION SECTION COLONOSCOPY COLONOSCOPY DIAGNOSTIC / SCREENING N/A 05/18/2024 Performed by Krishan Chau MD at [facility] ECTOPIC SURGERY HYSTEROSCOPY DILATION CURETTAGE ENDOMETRIAL ABLATION MYOSURE N/A 09/10/2020 Performed by Taty Saul MD at [facility] LAPAROSCOPIC VAGINAL HYSTERECTOMY N/A 12/03/2020 Performed by Taty Saul MD at [facility] MARSUPIALIZATION OF BARTHOLIN CYST Right 01/31/2019 Performed by Taty Saul MD at [facility] TUBAL LIGATION Family Hx Family History Problem Relation Age of Onset Other Mother clear cell sarcoma Prostate cancer Father Depression Sister Miscarriages / Stillbirths Sister Stroke Sister No Known Problems Sister Breast cancer Maternal Aunt 43 Breast cancer Maternal Aunt Lung cancer Maternal Aunt Alcohol abuse Maternal Uncle Drug abuse Maternal Uncle Arthritis Maternal Grandmother Hypertension Maternal Grandmother Psychosocial Social History Socioeconomic History Marital status: Single Highest education level: 12th grade Tobacco Use Smoking status: Never Smokeless tobacco: Never Vaping Use Vaping status: Never Used Substance and Sexual Activity Alcohol use: Yes Comment: occasional Drug use: No Sexual activity: Yes Partners: Male control/protection: Surgical Comment: tubal ligation/ hysterectomy Social Drivers of Health Financial Resource Strain: Low Risk (04/30/2024) Overall Financial Resource Strain (CARDIA) Difficulty of Paying Living Expenses: Not hard at all Food Insecurity: No Food Insecurity (10/04/2024) Hunger Screening Food Insecurity - Worry: Never True Food Insecurity - Inability: Never True Transportation Needs: No Transportation Needs (04/30/2024) PRAPARE - Transportation Lack of Transportation (Medical): No Lack of Transportation (Non-Medical): No Physical Activity: Inactive (04/26/2019) Exercise Vital Sign Days of Exercise per Week: 0 days Minutes of Exercise per Session: 0 min Stress: Stress Concern Present (04/26/2019) [place] [place] [employer] - Occupational Stress Questionnaire Feeling of Stress : Rather much Social Connections: Moderately Integrated (04/26/2019) Social Connection and Isolation Panel [NHANES] Frequency of Communication with Friends and Family: More than three times a week Frequency of Social Gatherings with Friends and Family: Once a week Attends Jew Services: More than 4 times per year Active Member of Clubs or Organizations: No Attends Club or Organization Meetings: Never Marital Status: Interpersonal Safety: Not At Risk (04/26/2019) Humiliation, Afraid, Rape, and Kick questionnaire Fear of Current or Ex-Partner: No Emotionally Abused: No Physically Abused: No Sexually Abused: No Housing Instability: Low Risk (04/30/2024) Housing Instability Housing Instability: No Current Medications Current Outpatient Medications Medication Sig Dispense Refill cyanocobalamin (VITAMIN B-12) 1,000 mcg/mL injection Inject 1 mL (1,000 mcg total) into the appropriate muscle every 30 (thirty) days. UNABLE TO FIND Inject 1 INJECTION under the skin every 30 (thirty) days. Vitamin D injection monthly No current facility-administered medications for this visit. Allergies No Known Allergies OBJECTIVE Vitals Vitals: 10/04/24 1450 BP: 108/78 Weight: 102.4 kg (225 lb 12.8 oz) Physical Exam Constitutional: Appearance: Normal appearance. HENT: Head: Normocephalic and atraumatic. Eyes: Extraocular Movements: Extraocular movements intact. Pulmonary: Effort: Pulmonary effort is normal. Chest: Breasts: Right: No mass, nipple discharge, skin change or tenderness. Left: No mass, nipple discharge, skin change or tenderness. Abdominal: Hernia: There is no hernia in the left inguinal area or right inguinal area. Genitourinary: General: Normal vulva. Labia: Right: No rash, tenderness or lesion. Left: No rash, tenderness or lesion. Vagina: Normal. Comments: Normal external genitalia, normal vaginal mucosa without lesions; physiologic discharge. On bimanual exam, no adnexal masses palpated, non-tender. No pap needed Musculoskeletal: General: Normal range of motion. Cervical back: Normal range of motion. Lymphadenopathy: Lower Body: No right inguinal adenopathy. No left inguinal adenopathy. Skin: General: Skin is warm and dry. Neurological: General: No focal deficit present. Mental Status: She is alert. Psychiatric: Mood and Affect: Mood normal. ASSESSMENT & PLAN Jazlyn Araiza is a 44 y.o. who presents for her annual gynecology exam. 1. Well woman exam with routine gynecological exam - Mammography screening bilateral with CAD; Future 2. Encounter for screening mammogram for malignant neoplasm of breast 3. Encounter for screening breast examination 4. Acute vaginitis - Vaginitis Panel PCR - Urogenital Ureaplasma and Mycoplasma Species by PCR: Genital Swab Patient Education: 1. Recommend breast self-awareness. Notify provider for any breast changes or concerns 2. National guidelines recommend yearly screening mammogram to start at age 40 3. National guidelines recommend colonoscopy starting at 45 for average risk individuals 4. Recommend Calcium 1,000 mg and Vit. D 600 IU daily, preferably through diet and folic acid supplementation for all women of reproductive age to reduce the risk of neural tube defects Will notify of results RTO as needed and annually. AARTI Roberto APRN-CNP 10/04/24 1519 documented in this encounter [facility] 09-21-2024 Miscellaneous Notes Spoke with patient regarding CT Abdomen and Pelvis to be scheduled. Patient to call to reschedule. Was scheduled 07/10/24 but cancelled for unknown reason. After multiple attempts to contact patient with Tameil's left, I will no longer attempt to contact patient in regards to scheduling testing. documented in this encounter [facility] 09-21-2024 Telephone encounter Note Spoke with patient regarding CT Abdomen and Pelvis to be scheduled. Patient to call to reschedule. Was scheduled 07/10/24 but cancelled for unknown reason. [facility] 09-21-2024 Telephone encounter Note After multiple attempts to contact patient with [employer]ono[employer]'s left, I will no longer attempt to contact patient in regards to scheduling testing. [facility] 08-14-2024 Evaluation note Diagnosis Onset Date Resolution Abnormal weight gain acute Apri l 2024 10:19am BMI 40.0-44.9, adult acute Apri l 2024 10:19am Dietary surveillance and counseling acute August 14, 2024 10:19am Exercise counseling acute August 14, 2024 10:19am Hx of hysterectomy acute August 14, 2024 10:19am Obesity, Class III, BMI 40-49.9 (morbid obesity) acute August 14, 2024 10:19am Abnormal weight gain acute October 02, 2024 2:21pm BMI 40.0-44.9, adult acute October 02, 2024 2:21pm Dietary surveillance and counseling acute October 02, 2024 2:21pm Exercise counseling acute October 02, 2024 2:21pm Hx of hysterectomy acute September 232024 2:21pm Obesity, Class III, BMI 40-49.9 (morbid obesity) acute October 02, 2024 2:21pm [facility] Work Phone: [phone] 651-496203-05-2025 History of Present illness Narrative* Shandra Nails, ETCHER APPRENTICE-MANAGER RESEARCH - 06/27/2024 11:00 AM EST Images from the original note were not included. Chief Complaint: Abdominal pain History of Present Illness Jazlyn Araiza is a 44 y.o. female who presents to the office for bilateral lower abdominal pain and pressure. She states she has had 3 episodes of severe lower abdominal pain associated with vomiting. The pain lasts for a few hours and then goes away on its own. The pain is unrelieved by passing gas or having a bowel movement. She also feels as if her rectum is swollen. She denies any noticeable diet triggers. She admits that she does not drink enough water daily. Family member present with her today is wondering if she could have celiac disease. She had a colonoscopy for rectal bleeding on 05/18/[address] Chau. This was a normal study. She reports that she has still had some bright red blood per her rectum since colonoscopy, but none recently. Denies rectal pain. She states she is up-to-date with gynecological examinations. Review of Systems Constitutional: Negative for fever and unexpected weight change. HENT: Negative for trouble swallowing. Respiratory: Negative for shortness of breath. Cardiovascular: Negative for chest pain. Gastrointestinal: Positive for vomiting and abdominal pain. Negative for diarrhea, constipation andrectal pain. Genitourinary: Negative for dysuria and difficulty [...] 12/03/2020 Performed by Taty Saul MD at [facility] BARTHOLIN GLAND CYST EXCISION SECTION COLONOSCOPY COLONOSCOPY DIAGNOSTIC / SCREENING N/A 05/18/2024 Performed by Krishan Chau MD at [facility] ECTOPIC SURGERY HYSTEROSCOPY DILATION CURETTAGE ENDOMETRIAL ABLATION MYOSURE N/A 09/10/2020 Performed by Taty Saul MD at [facility] LAPAROSCOPIC VAGINAL HYSTERECTOMY N/A 12/03/2020 Performed by Taty Saul MD at [facility] MARSUPIALIZATION OF BARTHOLIN CYST Right 01/31/2019 Performed by Taty Saul MD at [facility] TUBAL LIGATION No Known Allergies Current Outpatient Medications: cyanocobalamin (VITAMIN B-12) 1,000 mcg/mL injection, Inject 1 mL (1,000 mcg total) into the appropriate muscle every 30 (thirty) days., Disp: , Rfl: UNABLE TO FIND, Inject 1 INJECTION under the skin every 30 (thirty) days. Vitamin D injection monthly, Disp: , Rfl: Social History Socioeconomic History Marital status: Single [...] 0 min Stress: Stress Concern Present (04/26/2019) [place] [place] [employer] - Occupational Stress Questionnaire Feeling of Stress : Rather much Social Connections: Moderately Integrated (04/26/2019) Social Connection and Isolation Panel [NHANES] Frequency of Communication with Friends and Family: More than three times a week Frequency of Social Gatherings with Friends and Family: Once a week Attends Jew Services: More than 4 times per year [...] and Rhythm: Normal rate and regular rhythm. Pulmonary: Effort: Pulmonary effort is normal. No respiratory distress. Abdominal: General: There is no distension. Palpations: Abdomen is soft. Tenderness: There is no abdominal tenderness. There is no guarding. Musculoskeletal: General: Normal range of motion. Skin: General: Skin is warm and dry. Neurological: Mental Status: She is alert and oriented to person, place, and time. Mental status is at baseline. Vital Signs: Blood pressure 121/71, pulse 75, height 157.5 cm (5' 2 ), weight 107.2 kg (236 lb 6.4 oz), last menstrual period 10/28/2020, not currently . Respiratory Source: No data recorded Admission Weight: Weight: 107.2 kg (236 lb 6.4 oz) Labs Lab Results Component Value Date [...] No results found for: INR , PROTIME Imaging Colonoscopy 05/18/2024: Findings: The entire examined colon appeared normal. Estimated Blood Loss: Estimated blood loss: none. Impression: - The entire examined colon is normal. - No specimens collected. Recommendation: - Repeat colonoscopy in 10 years for screening purposes. Assessment Bilateral lower abdominal pain Intermittent BRBPR - colonoscopy normal, suspect hemorrhoidal Plan Obtain CT abdomen and pelvis. Celiac labs. Increase water intake to 64 oz daily, healthy diet, keep food log. Evaluation included: Preparing to see the patient (e.g., review of tests) Obtaining and/or reviewing separately obtained history Performing a medically appropriate examination and/or evaluation Counseling and educating the patient/family/caregiver Referring and communicating with other health landcare officer Abdominal pain, bilateral lower quadrant [R10.31, R10.32] SHANDRA NAILS APRN-MANAGER RESEARCH [facility] [place] This note was created with the assistance of a speech recognition program. While intending to generate a timely document that accurately reflects the content of the visit, no guarantee can be provided that every grammatical or spelling mistake has been or will be identified or corrected. Thank you for your understanding. AARTI De Oliveira 06/27/24 1133 [facility] Miscellaneous Notes* Perioperative Nursing Note - Verónica Oliveira RN - 05/10/2024 2:20 PM EST Preoperative Education Checklist- General Surgery date: 05/18/24 Surgery time: 0900 Arrival time: 0700 1. Bring a photo ID and your insurance card with you the day of surgery. You will check in at the main lobby of the [facility]- registration desk is straight ahead as soon as you walk in. Tell them you are here for surgery. 2. If you have a Living Will/Durable Power of Sole Cementer for Health Care that is not on file here, please bring a copy the day of surgery. 3. Please shower/bathe the night before surgery with the provided soap or wipes. Do not shower the morning of surgery- you will do use wipes when you arrive here at the hospital before getting into your surgical gown. Do not shave the area of your procedure for 2 days prior to your surgery. 4. NO powder, lotion, perfume/cologne, aftershave, make-up, deodorant, or hair products after you have bathed. 5. NO nail guatemalan/acrylic on at least one finger. If you are having a hand, wrist or foot surgery then all nail guatemalan and artificial/acrylic nails must be removed from that hand or foot. 6. Avoid ALL Aspirin and non-steroidal anti-inflammatory drugs and certain vitamins (Ibuprofen, Advil, Aleve, Excedrin, Meloxicam, Celebrex, fish/krill oil, etc.) for 7 days prior to surgery as instructed by your surgeon and/or your prescribing doctor. Tylenol IS ALLOWED. If you are on Ticlid, Xarelto, Eliquis, Pradaxa, Plavix or Coumadin, please check with your prescribing doctor for instructions for when to stop them. 7. If you use an inhaler, continue to use it routinely. 8. Nothing to eat or drink (not even water, gum, mints, or hard candy!) AFTER midnight prior to your surgery. 9. Take only medications that you are instructed to on the morning of surgery with a TINY SIP OF WATER. 10. Choose a responsible adult that will be able to drive you home when you are discharged from your hospital stay for your surgery and can stay with you in your home for 24 hours after your procedure. You must NOT drive any vehicle or operate any machinery for 24 hours after surgery. 11. When you dress for your appointment, please wear loose fitting clothing that is appropriate to accommodate your surgical area procedure. BRING WITH YOU ANY DEVICES YOU MAY NEED: KEMI hose, ice machine, sling/swath, brace or special shoe, oversized zip-up or button up shirt, CPAP machine if staying overnight. 12. Do NOT wear jewelry, watches, or any piercings or metal for surgery- leave these valuables and money at home. 13. Do NOT wear contact lenses for surgery- glasses are okay if needed. 14. The anesthesiologist will talk with you the day of surgery and will ask you to sign a Consent Form. 15. Refrain from smoking or any type of tobacco use for at least 8 hours and marijuana for 24 hoursprior to arrival for your surgery. 16. If a GREEN BLOOD band is given to you, please bring it with you for the day of surgery. 17. Notify your surgeon if you develop any illness before your surgery. 18. If you are staying overnight, please DO NOT BRING your home medications with you. 19. If you have any questions prior to surgery, please call the Preadmission Testing office at [phone], Mon.-Fri. 7 a.m.-3 p.m. Leave a voicemail if needed. Pre-Surgery Instructions: Medication Instructions cyanocobalamin (VITAMIN B-12) 1,000 mcg/mL injection Stop taking 0 days prior to procedure sod sulf-pot chloride-mag sulf 1.479-0.188- 0.225 gram tablet Stop taking 0 days prior to procedure UNABLE TO FIND Stop taking 0 days prior to procedure [facility] Nurse Note* Perioperative Nursing Note - Verónica Oliveira RN - 05/10/2024 2:20 PM EST Preoperative Education Checklist- General Surgery date: 05/18/24 Surgery time: 0900 Arrival time: 0700 1. Bring a photo ID and your insurance card with you the day of surgery. You will check in at the main lobby of the [facility]- registration desk is straight ahead as soon as you walk in. Tell them you are here for surgery. 2. If you have a Living Will/Durable Power of Sole Cementer for Health Care that is not on file here, please bring a copy the day of surgery. 3. Please shower/bathe the night before surgery with the provided soap or wipes. Do not shower the morning of surgery- you will do use wipes when you arrive here at the hospital before getting into your surgical gown. Do not shave the area of your procedure for 2 days prior to your surgery. 4. NO powder, lotion, perfume/cologne, aftershave, make-up, deodorant, or hair products after you have bathed. 5. NO nail guatemalan/acrylic on at least one finger. If you are having a hand, wrist or foot surgery then all nail guatemalan and artificial/acrylic nails must be removed from that hand or foot. 6. Avoid ALL Aspirin and non-steroidal anti-inflammatory drugs and certain vitamins (Ibuprofen, Advil, Aleve, Excedrin, Meloxicam, Celebrex, fish/krill oil, etc.) for 7 days prior to surgery as instructed by your surgeon and/or your prescribing doctor. Tylenol IS ALLOWED. If you are on Ticlid, Xarelto, Eliquis, Pradaxa, Plavix or Coumadin, please check with your prescribing doctor for instructions for when to stop them. 7. If you use an inhaler, continue to use it routinely. 8. Nothing to eat or drink (not even water, gum, mints, or hard candy!) AFTER midnight prior to your surgery. 9. Take only medications that you are instructed to on the morning of surgery with a TINY SIP OF WATER. 10. Choose a responsible adult that will be able to drive you home when you are discharged from your hospital stay for your surgery and can stay with you in your home for 24 hours after your procedure. You must NOT drive any vehicle or operate any machinery for 24 hours after surgery. 11. When you dress for your appointment, please wear loose fitting clothing that is appropriate to accommodate your surgical area procedure. BRING WITH YOU ANY DEVICES YOU MAY NEED: KEMI hose, ice machine, sling/swath, brace or special shoe, oversized zip-up or button up shirt, CPAP machine if staying overnight. 12. Do NOT wear jewelry, watches, or any piercings or metal for surgery- leave these valuables and money at home. 13. Do NOT wear contact lenses for surgery- glasses are okay if needed. 14. The anesthesiologist will talk with you the day of surgery and will ask you to sign a Consent Form. 15. Refrain from smoking or any type of tobacco use for at least 8 hours and marijuana for 24 hoursprior to arrival for your surgery. 16. If a GREEN BLOOD band is given to you, please bring it with you for the day of surgery. 17. Notify your surgeon if you develop any illness before your surgery. 18. If you are staying overnight, please DO NOT BRING your home medications with you. 19. If you have any questions prior to surgery, please call the Preadmission Testing office at [phone], Mon.-Fri. 7 a.m.-3 p.m. Leave a voicemail if needed. Pre-Surgery Instructions: Medication Instructions cyanocobalamin (VITAMIN B-12) 1,000 mcg/mL injection Stop taking 0 days prior to procedure sod sulf-pot chloride-mag sulf 1.479-0.188- 0.225 gram tablet Stop taking 0 days prior to procedure UNABLE TO FIND Stop taking 0 days prior to procedure [facility] History of Present illness Narrative* Shandra Nails, EUNICE-MANAGER RESEARCH - 05/03/2024 9:00 AM EST Images from the original note were not included. Chief Complaint: Rectal bleeding History of Present Illness Jazlyn Araiza is a 43 y.o. female who presents to the office for rectal bleeding. She reports intermittent bright red blood per her rectum since July. Around she had 3 days of increased bleeding. She states the toilet paper was saturated with blood and it was also in the toilet bowl. She has not had any bleeding since then. She denies any abdominal pain, rectal pain, constipation or diarrhea. She was seen in the [facility] ED for her symptoms. BETSEY was performed and no hemorrhoids were visualized. She had a colonoscopy about 20 years ago. She states there is a family history ofcolon cancer in her cousin, but no first-degree [...] 12/03/2020 Performed by Taty Saul MD at [facility] BARTHOLIN GLAND CYST EXCISION SECTION COLONOSCOPY ECTOPIC SURGERY HYSTEROSCOPY DILATION CURETTAGE ENDOMETRIAL ABLATION MYOSURE N/A 09/10/2020 Performed by Taty Saul MD at [facility] LAPAROSCOPIC VAGINAL HYSTERECTOMY N/A 12/03/2020 Performed by Taty Saul MD at [facility] MARSUPIALIZATION OF BARTHOLIN CYST Right 01/31/2019 Performed by Taty Saul MD at [facility] TUBAL LIGATION No Known Allergies Current Outpatient Medications: cyanocobalamin (VITAMIN B-12) 1,000 mcg/mL injection, Inject 1 mL (1,000 mcg total) into the appropriate muscle every 30 (thirty) days., Disp: , Rfl: UNABLE TO FIND, Inject 1 INJECTION under the skin every 30 (thirty) days. Vitamin D injection monthly, Disp: , Rfl: sod sulf-pot chloride-mag sulf 1.479-0.188- 0.225 gram tablet, Please see instructional sheet givenby physicians office., Disp: 24 tablet, Rfl: 0 [...] 0 min Stress: Stress Concern Present (04/26/2019) [place] [employer] - Occupational Stress Questionnaire Feeling of Stress : Rather much Social Connections: Moderately Integrated (04/26/2019) Social Connection and Isolation Panel [NHANES] Frequency of Communication with Friends and Family: More than three times a week Frequency of Social Gatherings with Friends and Family: Once a week Attends Jew Services: More than 4 times per year [...] evacuation preparation. Patient verbalizes understanding and wishes toproceed. Evaluation included: Preparing to see the patient (e.g., review of tests) Obtaining and/or reviewing separately obtained history Performing a medically appropriate examination and/or evaluation Counseling and educating the patient/family/caregiver Referring and communicating with other health landcare officer Blood in stool [K92.1] SHANDRA NAILS, ETCHER APPRENTICE-MANAGER RESEARCH [facility] [place] This note was created with the assistance of a speech recognition program. While intending to generate a timely document that accurately reflects the content of the visit, no guarantee can be provided that every grammatical or spelling mistake has been or will be identified or corrected. Thank you for your understanding. AARTI De Oliveira 05/03/24 0932 [facility] Miscellaneous Notes* Telephone Encounter - Salma Yoo - 08/22/2023 10:48 AM EDT 08/18 received COMP order 08/21 Called PT LM to schedule sleep study. COMP order and 08/18 Mónica notes in epic documented in this encounterK[facility]24 Telephone encounter Note* Telephone Encounter - Salma Yoo - 08/22/2023 10:48 AM EDT 08/18 received COMP order 08/21 Called PT LM to schedule sleep study. COMP order and 08/18 Mónica notes in epic [facility] History of Present illness Narrative* Petar Sales MD - 08/19/2023 9:45 AM EDT Images from the original note were not included. [address] [place] [id number] Patient: Jazlyn Araiza Date of : 1980 Encounter Date: 08/19/2023 SUBJECTIVE: Chief Complaint: Chief Complaint Patient presents with Fatigue Patient states big increase over last couple of weeks. Patient ID: Jazlyn Araiza is a 43 y.o. female. Changed in position at work More associated stress Hours 5am to 1-3pm Goes to bed around 9pm Able to fall asleep, with some intermittent waking. About 1/2 the week. Wakes up and feels well. Snore at night all the time Would like to but unable to take a nap By 4-5 pm is exhausted No change in work days Unable to get much done Weekends she feels pretty much the same Has only 1 meal Gaining weight Next one is ready just here for increase in fatigue over last 2 weeks. She said she is getting on average 6 hours sleep The following portions of the patient's history were reviewed and updated as appropriate: allergies, current medications, past family history, past medical history, past social history, past surgicalhistory and problem list. PHYSICAL EXAMINATION: Vitals: 08/19/23 0951 BP: 122/70 Pulse: 74 Temp: 36.7 C (98.1 F) SpO2: 97% Weight: 110 kg (242 lb 6.4 oz) Height: 157.5 cm (5' 2 ) Physical Exam Vitals reviewed. Constitutional: General: She is not in acute distress. Appearance: Normal appearance. She is obese. Comments: Large abdominal neck girth, significant increase in weight from last encounter. Eyes: Extraocular Movements: Extraocular movements intact. Pupils: [...] is no right CVA tenderness, left CVA tendernessor guarding. Musculoskeletal: Cervical back: Normal range of motion and neck supple. Neurological: Mental Status: She is alert and oriented to person, place, and time. Mental status is at baseline. Psychiatric: Mood and Affect: Mood normal. Comments: Patient made able to maintain eye contact well, able to clearly describe her symptoms andconcerns. Does appear dysphoric. Endorses poor sleep. ASSESSMENT/PLAN: Jazlyn was seen today for fatigue. Diagnoses and all orders for this visit: Other fatigue - buPROPion (WELLBUTRIN) 75 mg tablet; Take 1 tablet (75 mg total) by mouth in the morning and 1 tablet (75 mg total) before bedtime. - CBC auto differential; Future - Comprehensive metabolic panel; Future - Lipid profile; Future - TSH with Reflex; Future - Vitamin D 25 hydroxy; Future - Vitamin B12; Future - Folate; Future - SARS COV 2 (COVID-19); Future - PSG Diagnostic; Future - Polysomnography 4 or more parameters with PAP titration; Future - Ambulatory referral to [facility] Sleep Medicine; Future Unexplained symptoms of fatigue, weight gain, decreased concentration, decreased energy. Will evaluate with metabolic workup as above Initiate Wellbutrin for mood and anhedonia like symptoms. Sleep study, given high stop Bang score Follow-up in 1-3 months. PETAR ASLES MD Family Medicine Physician [facility] Medicine / [facility] 08/19/23 This note was completed with voice recognition software. The document was reviewed for errors however some may still be present. Please do not hesitate to contact/Epic msg the author to verify any questions/concerns. documented in this encounterK[facility]03-07-2024 Miscellaneous Notes* Telephone Encounter - Ashtyn Steel CMA - 06/30/2023 9:27 AM EST ----- Message from Krishan Chau MD sent at 06/30/2023 8:45 AM EST ----- Regarding: Pathology Please let patient know benign lipoma. Follow-up as needed. Thank you ----- Message ----- From: Interface - Lab Results/Orders In Sent: 06/28/2023 9:42 AM EST To: Krishan Chau MD * Telephone Encounter - Ashtyn Steel CMA - 06/30/2023 9:27 AM EST Spoke with patient regarding pathology results. Patient verbally understood with no further questions. documented in this encounterKet[facility]03-07-2024 Telephone encounter Note* Telephone Encounter - Ashtyn Steel CMA - 06/30/2023 9:27 AM EST ----- Message from Krishan Chau MD sent at 06/30/2023 8:45 AM EST ----- Regarding: Pathology Please let patient know benign lipoma. Follow-up as needed. Thank you ----- Message ----- From: Interface - Lab Results/Orders In Sent: 06/28/2023 9:42 AM EST To: Krishan Chau MD [facility]03-07-2024 Telephone encounter Note* Telephone Encounter - Ashtyn Steel CMA - 06/30/2023 9:27 AM EST Spoke with patient regarding pathology results. Patient verbally understood with no further questions. [facility] History of Present illness Narrative* Krishan Chau MD - 06/21/2023 1:30 PM EST Images from the original note were not [...] 12/03/2020 Performed by Taty Saul MD at [facility] BARTHOLIN GLAND CYST EXCISION SECTION COLONOSCOPY ECTOPIC SURGERY HYSTEROSCOPY DILATION CURETTAGE ENDOMETRIAL ABLATION MYOSURE N/A 09/10/2020 Performed by Taty aSul MD at [facility] LAPAROSCOPIC VAGINAL HYSTERECTOMY N/A 12/03/2020 Performed by Taty Saul MD at [facility] MARSUPIALIZATION OF BARTHOLIN CYST Right 01/31/2019 Performed by Taty Saul MD at [facility] TUBAL LIGATION No Known Allergies Current Outpatient [...] 0 min Stress: Stress Concern Present (04/26/2019) [place] [employer] - Occupational Stress Questionnaire Feeling of Stress : Rather much Social Connections: Moderately Integrated (04/26/2019) Social Connection and Isolation Panel [NHANES] Frequency of Communication with Friends and Family: More than three times a week Frequency of Social Gatherings with Friends and Family: Once a week Attends Jew Services: More than 4 times per year [...] excised and sent for pathology. 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 January. Has been on 2 different abx. Metrogel has helped. Hysterectomy in 2020: due to AUB hx of ectopic. The following portions of the patient's history were reviewed and updated as appropriate: allergies, current medications, past family history, past medical history, past social history, past surgicalhistory and problem list. Review of Systems Constitutional: Negative. HENT: Negative. Eyes: Negative. Respiratory: Negative. Cardiovascular: Negative. Gastrointestinal: Negative. Endocrine: Negative. Genitourinary: Negative. Musculoskeletal: Negative. Skin: Negative. Allergic/Immunologic: Negative. Neurological: Negative. Hematological: Negative. Psychiatric/Behavioral: Negative. All other systems reviewed and are negative. ObGyn Hx OB History Para Term AB Living 3 1 1 2 2 SAB IAB Ectopic Multiple Live Births 2 1 2 # Outcome Date GA Lbr Trip/2nd Weight Sex Delivery Anes PTL Lv 3A 06/18/13 36w0d F DEBORAH 3B 06/18/13 36w0d M DEBORAH 2 Ectopic 1 Ectopic Medical Hx No past medical history on file. Surgical Hx Past Surgical History: Procedure Laterality Date ABDOMINAL HYSTERECTOMY N/A 12/03/2020 Performed by Taty Saul MD at [facility] BARTHOLIN GLAND CYST EXCISION ECTOPIC SURGERY HYSTEROSCOPY DILATION CURETTAGE ENDOMETRIAL ABLATION MYOSURE N/A 09/10/2020 Performed by Taty Saul MD at [facility] LAPAROSCOPIC VAGINAL HYSTERECTOMY N/A 12/03/2020 Performed by Taty Saul MD at [facility] MARSUPIALIZATION OF BARTHOLIN CYST Right 01/31/2019 Performed by Taty Saul MD at [facility] TUBAL LIGATION Family Hx Family History Problem Relation Age of Onset Other Mother clear cell sarcoma Prostate cancer Father Breast cancer Maternal Aunt 43 Psychosocial Social History Socioeconomic History Marital status: Single Spouse name: Not on file Number of children: Not on file Years of education: Not on file Highest education level: 12th grade Occupational History Not on file Tobacco Use Smoking status: Never Smokeless tobacco: Never Vaping Use Vaping Use: Never used Substance and Sexual Activity Alcohol use: Yes Comment: occasional Drug use: No Sexual activity: Not Currently Partners: Male control/protection: Surgical Comment: tubal ligation/ hysterectomy Other Topics Concern Not on file Social History Narrative Not on file Social Determinants of Health Financial Resource Strain: Low Risk (04/26/2019) Overall Financial Resource Strain (CARDIA) Difficulty of Paying Living Expenses: Not hard at all Food Insecurity: No Food Insecurity (05/18/2023) Hunger Screening Food Insecurity - Worry: Never True Food Insecurity - Inability: Never True Transportation Needs: No Transportation Needs (04/26/2019) PRAPARE - Transportation Lack of Transportation (Medical): No Lack of Transportation (Non-Medical): No Physical Activity: Inactive (04/26/2019) Exercise Vital Sign Days of Exercise per Week: 0 days Minutes of Exercise per Session: 0 min Stress: Stress Concern Present (04/26/2019) [place] [employer] - Occupational Stress Questionnaire Feeling of Stress : Rather much Social Connections: Moderately Integrated (04/26/2019) Social Connection and Isolation Panel [NHANES] Frequency of Communication with Friends and Family: More than three times a week Frequency of Social Gatherings with Friends and Family: Once a week Attends Jew Services: More than 4 times per year Active Member of Clubs or Organizations: No Attends Club or Organization Meetings: Never Marital Status: Interpersonal Safety: Not At Risk (04/26/2019) Humiliation, Afraid, Rape, and Kick questionnaire Fear of Current or Ex-Partner: No Emotionally Abused: No Physically Abused: No Sexually Abused: No Housing Instability: Not on file Current Medications Current Outpatient Medications Medication Sig Dispense Refill ergocalciferol (DRISDOL) 1,250 mcg (50,000 unit) capsule Take 1 capsule by mouth once a week 8 capsule 0 No current facility-administered medications for this visit. Allergies No Known Allergies OBJECTIVE Vitals Vitals: 06/20/23 0926 BP: 117/82 Weight: 107.4 kg (236 lb 12.8 oz) General: no acute distress RESP: CTAB, no acute respiratory distress ABD: soft, nontender Ext: no edema Pelvic: External genitalia: normal general appearance Urinary system: urethral meatus normal Vaginal: normal mucosa without prolapse or lesions Pelvic floor tenderness: no Cervix: absent Adnexa: bilateral WNL Uterus: uterus absent Anus: Normally situated without hemorrhoids. ASSESSMENT & PLAN Jazlyn Araiza is a 43 y.o. who presents to discuss AUB: AUB - likely due to the chronic infection - white discharge is noted - microplasma and ureoplasma tested - discussed metrogel suppression since metrogel has been the only thing that has worked - will send refills. - metrogel 2X weekly x 16 weeks IRAIS JACQUES MD documented in this encounterWilson Healthca Apex Medical [id number] History of Present illness Narrative* Petar Sales MD - 05/18/2023 11:45 AM EST Images from the original note were not included. [address] [place] [phone] Patient: Jazlyn Araiza Date of : 1980 Encounter Date: 05/18/2023 SUBJECTIVE: Chief Complaint: Chief Complaint Patient presents with Bladder Problems Patient ID: Jazlyn Araiza is a 43 y.o. female. Patient continues to describe ongoing symptoms for the past month to month and a half with dysuria,urgency, frequency. Recently had Ob Gyne complete a pelvic exam, collected vaginitis panel and UA with urine culture. All testing is largely been negative. She is now having clear to green colored discharge as malodorous. The following portions of the patient's history were reviewed and updated as appropriate: allergies, current medications, past family history, past medical history, past social history, past surgicalhistory and problem list. PHYSICAL EXAMINATION: Vitals: 05/18/23 [...] is no right CVA tenderness, left CVA tendernessor guarding. Musculoskeletal: Cervical back: Normal range of motion and neck supple. Neurological: Mental Status: She is alert and oriented to person, place, and time. Mental status is at baseline. ASSESSMENT/PLAN: Jazlyn was seen today for bladder problems. Diagnoses and all orders for this visit: Bacterial vaginosis - metroNIDAZOLE (Metrogel VaginaL) 0.75 % (37.5mg/5 gram) vaginal gel; Insert 1 applicator into thevagina once daily at bedtime for 7 days. Will treat with Flagyl intravaginally for 1 week, this should help cover both Trichomonas and bacterial vaginosis. Reassess subsequently. PETAR SALES MD Family Medicine Physician [facility] Medicine / [facility] 05/18/23 This note was completed with voice recognition software. The document was reviewed for errors however some may still be present. Please do not hesitate to contact/Epic ms the author to verify any questions/concerns. documented in this encounterRockingham [facility] Hospital[x+1] [id number] History of Present illness Narrative* Petar Sales MD - 04/28/2023 8:30 AM EST Images from the original note were not included. [address] [place] [phone] Patient: Jazlyn Araiza Date of : 1980 [...] past medical history, past social history, past surgicalhistory and problem list. PHYSICAL EXAMINATION: Vitals: 04/28/23 [...] is no right CVA tenderness, left CVA tendernessor guarding. Musculoskeletal: Cervical back: Normal range of [...] patient. Limiting her ability to ambulate. [facility] [place], [place]; Future Hematuria, unspecified type Patient had [...] care. PETAR SALES MD Family Medicine Physician [facility] Family Medicine / [facility] 04/28/23 This note was completed with voice recognition software. The document was reviewed for errors however some may still be present. Please do not hesitate to contact/Epic msg the author to verify any questions/concerns. documented in this encounterK[facility]tering [facility]11-30-2022 NotePROCEDURE: XR FOOT RT MIN 3 VIEWS HISTORY: Pain in right [...] Electronically authenticated by: CHRIS RODRIGUEZ Date: 2022-03-24 06:51[facility]* Diagnosis Blood in stool- Primary documented [facility] encounter [facility]* Diagnosis Blood in stool- Primary [facility]* Diagnosis Other fatigue- Primary documented in this encounter [facility]* Diagnosis Lipoma of left lower extremity- Primary Hematuria, unspecified type documented [facility] this encounter [facility]* Diagnosis Bacterial vaginosis- Primary Unspecified vaginitis and vulvovaginitis documented [facility] encounter [facility]* Diagnosis Abnormal uterine bleeding (AUB)- Primary Vaginal infection Unspecified vaginitis and vulvovaginitis documented [facility]* Diagnosis Lipoma of left lower extremity- Primary [facility]* Diagnosis Abdominal pain, bilateral lower quadrant- Primary [facility]* Diagnosis Well woman exam with routine gynecological exam- Primary Routine gynecological examination Encounter for screening mammogram for malignant neoplasm of breast Encounter for screening breast examination Acute vaginitis Unspecified vaginitis and vulvovaginitis [facility] Diagnosis Screening examination for STI- Primary documented in this encounter [facility] SystemInstructionsNot on [...] on filedocumented in this encounter [facility] SystemReason for referral (narrative)* Consultation (Routine) - Pending Review Specialty Diagnoses / Procedures Referred By Karley ornelas Referred To Contact Sleep Medicine / Pulmonary Medicine Diagnoses Other fatigue Petar Sales MD [address], [place] [address] Zz Do Not Use Pcj Pulm Sleep Med [address] [id number] Referral ID Status Reason Start Date Expiration Date Visits Requested Visits Authorized [id number] Pending Review Specialty Services Required 08/19/2023 08/18/2024 1 1 * Misc (Routine) - Pending Review Specialty Diagnoses / Procedures Referred By Karley ornelas Referred To Contact Diagnoses Other fatigue Procedures Polysomnography 4 or more parameters with PAP titration Petar Sales MD [address], [place] [address] Referral ID Status Reason Start Date Expiration Date V isits Requested Visits Authorized [id number] Pending Review 08/19/2023 08/18/2024 1 1 * Misc (Routine) - Pending Review Specialty Diagnoses / Procedures Referred By Contac t Referred To Contact Diagnoses Other fatigue Procedures PSG Diagnostic Petar Sales MD [address] [facility] [place] [address] Referral ID Status Reason Start Date Expiration Date V isits Requested Visits Authorized [id number] Pending Review 08/19/2023 08/18/2024 1 1 [facility] (narrative)* Consultation (Routine) - Pending Review Specialty Diagnoses / Procedures Referred By Contac t Referred To Contact General Surgery Diagnoses Lipoma of left lower extremity Petar Sales MD [address] [facility] [place] [address] Krishan Chau MD [address] [place] [address] Referral ID Status Reason Start Date Expiration Date Visits Requested Visits Authorized [id number] Pending Review Specialty Services Required 04/28/2023 04/27/2024 1 1 [facility] Summary Purpose Family History Relationship Condition Age at Onset Recorded Date/T herberth mother Clear cell adenocarcinoma Unknown father Malignant neoplasm of prostate Unknown Malignant neoplasm of urinary bladder Unk nown Advance Directives Date Activated Date Inactivated Comments 12/03/2020 2:53 PM 12/05/2020 1:52 PM Date Activated Date Inactivated Comments 12/03/2020 2:53 PM 12/05/2020 1:52 PM Latest Code Status on File Code Status Date Activated Date Inactivated Comments Full Code 12/03/2020 2:53 PM 12/05/2020 1:52 PM Latest Code Status on File Code Status Date Activated Date Inactivated Comments Full Code 12/03/2020 2:53 PM 12/05/2020 1:52 PM Advance Directive Response Recorded Date/ Time Advance Directives No July 10, 2 025 11:58am Chief Complaint and Reason for Visit Chief Complaint Admit [facility] August 14, 2024 10:19am 6 week October 02, 2024 2:21 pm Reason for Visit Admit Date Abnormal weight gain August 14, 2024 10 :19am BMI 40.0-44.9, adult August 14, 2024 10 :19am Dietary surveillance and counseling Apri l 2024 10:19am Exercise counseling August 14, 2024 10: 19am Hx of hysterectomy August 14, 2024 10: 19am Obesity, Class III, BMI 40-49.9 (morbid obesity) August 14, 2024 10:19am Abnormal weight gain October 02, 2024 2:2 1pm BMI 40.0-44.9, adult October 02, 2024 2:2 1pm Dietary surveillance and counseling October 02, 2024 2:21pm Exercise counseling October 02, 2024 2:21 pm Hx of hysterectomy October 02, 2024 2:21 pm Obesity, Class III, BMI 40-49.9 (morbid obesity) October 02, 2024 2:21pm Additional Source Comments INFORMATION SOURCE (unrecogn ized section and content) DATE CREATED AUTHOR 07/18/2022 [facility] DATE CREATED AUTHOR AUTHOR'S ORGANIZ ATION 2024 [facility] DATE CREATED AUTHOR AUTHOR'S ORGANIZ ATION 10/08/2024 [facility] DATE CREATED AUTHOR AUTHOR'S ORGANIZ ATION 11/09/2024 [facility] Care Teams (unrecognized sec tion and content) Immunohematologist Relationship Specialty Start Date End Date Petar Sales MD [address] [place] [address] PCP - General Internal Medicine 03/31/23 Immunohematologist Relationship Specialty Start Date End Date Petar Sales MD [address], [place] [address] PCP - General Internal Medicine 03/31/23 Immunohematologist Relationship Specialty Start Date End Date Petar Sales MD [address], [place] [address] PCP - General Internal Medicine 03/31/23 Immunohematologist Relationship Specialty Start Date End Date Petar Sales MD [address], [place] [address] PCP - General Internal Medicine 03/31/23 Immunohematologist Relationship Specialty Start Date End Date Petar Sales MD [address], [place] [address] PCP - General Internal Medicine 03/31/23 Immunohematologist Relationship Specialty Start Date End Date Petar Sales MD [address], [place] [address] PCP - General Internal Medicine 03/31/23 Immunohematologist Relationship Specialty Start Date End Date Petar Sales MD [address], [place] [address] PCP - General Internal Medicine 03/31/23 Immunohematologist Relationship Specialty Start Date End Date Petar Sales MD [address], [place] [address] PCP - General Internal Medicine 03/31/23 Immunohematologist Relationship Specialty Start Date End Date Petar Sales MD [address], [place] [address] PCP - General Internal Medicine 03/31/23 Immunohematologist Relationship Specialty Start Date End Date Petar Sales MD [address], [place] [address] PCP - General Internal Medicine 03/31/23 Immunohematologist Relationship Specialty Start Date End Date Petar Sales MD [address], [place] [address] PCP - General Internal Medicine 03/31/23 Immunohematologist Relationship Specialty Start Date End Date Petar Sales MD [address], [place] [address] PCP - General Internal Medicine 03/31/23 Team Status: Active Member Role Status Dates Anh Ruelas MD Primary Care Provider Active Team Status: Inactive Member Role Status Dates Judy Ramos DNP Attending Provider Active S tart: August 14, 2024 End: August 14, 2024 NON STAFF Primary Care Provider Active Start: August 14, 2024 End: August 14, 2024 Team Status: Inactive Member Role Status Dates Judy Ramos DNP Attending Provider Active S tart: October 02, 2024 End: October 02, 2024 Anh Ruelas MD Primary Care Provider Active Star t: October 02, 2024 End: October 02, 2024 Immunohematologist Relationship Specialty Start Date End Date Petar Sales MD [address], [place] [address] PCP - General Internal Medicine 03/31/23 Immunohematologist Relationship Specialty Start Date End Date Petar Sales MD [address], [place], [place] [id number] PCP - General Internal Medicine 03/31/23 Immunohematologist Relationship Specialty Start Date End Date Petar Sales MD [address] [facility] [place] [facility] [place] [id number] PCP - General Internal Medicine 03/31/23 Reason for Visit (unrecogniz ed section and content) Reason Comments Rectal Bleeding Blood in stool, refe rred by Prakash Auguste CNP Specialty Diagnoses / Procedures Referred By Karley t Referred To Contact General Surgery Diagnoses Blood in stool Prakash Auguste APRN-MARISELA [address] [place] [address] [place] [address] Phone: tel: fax: [facility] [address] [facility] [place] [address] Phone: tel: fax: Referral ID Status Reason Start Date Expiration Date V isits Requested Visits Authorized [id number] Closed Specialty Services Required 04/20/2024 04/20/2025 1 1 Reason Comments Fatigue Patient states big i ncrease over last couple of weeks. Reason Comments Leg Pain Left, lump. Urinary Tract Infection Reason Onset Date Comments Sleep Lab 08/22/2023 COMP Reason Comments Bladder Problems Reason Comments Med Refill Reason Comments Establish Care Reason Comments Suspicious Skin Lesion Lipoma of left lo wer extremity, referred by Dr. Sales Reason Comments Follow-up Follow-up form colonoscopy, discuss symptoms and abdominal pain, still having bleeding Reason Comments Gynecologic Exam Goals (unrecognized section and content) Goals may be documented in a n alternate section FOR RECORDS PERTAINING TO PATIENTS WHO ARE [...] BE BASED ON THE PRIMARY CLINICAL RECORDS. [facility] [employer] [facility]. provides no warranty or guarantee of the accuracy or completeness of information in this document.
--- OUTSIDE RECORDS SUMMARY | 2025-02-07 15:29 | XMS_ITS | Encounter Summary ---
Author Organization [employer] Address [id number] [address] [place] [address] Care Team Providers Care Aircraft Maintenance Instructor Name Role Phone Petar Cervantes MD Primary Care Provider [phone] Encounter Details Date Type Department Care Team (Late st Contact Info) Description 02/12/2022 Telephone [facility] Family Medicine [address] [place] [address] [place] [address] Ros Pan CMA Social History Tobacco Use Types Packs/Day [...] and Family Once a week 04/26/2019 Attends [employer] Services More than 4 times per year [...] Answer Date Recorded Total Score 16 11/22/2019 [facility] [place] of Occupat ional Health - Occupational Stress [...] have Coronavirus / COVID-19? No / Unsure 02/10/2022 1:55 PM EDT documented as of this encounter Miscellaneous Notes * Telephone Encounter - Ros Pan CMA - 02/12/2022 12:33 PM EDT ----- Message from AARTI River sent at 02/12/2022 10:58 AM EDT ----- Normal mammogram- recheck annually * Telephone Encounter - Ros Pan CMA - 02/12/2022 12:33 PM EDT Called patient and informed her. She stated understanding. documented in this encounter Plan of Treatment Not on file documented as of this encounter Visit Diagnoses Not on filedocumented in this encounter Additional Health Concerns Assessment Noted Time PHQ-9 Depression Total Score: 16 020 1:00 PM EDT A Body Mass Index follow-up plan has been documented for the patient 10/31/2019 12:43 PM EDT documented as of this encounter Care Teams Aircraft Maintenance Instructor Relationship Specialty Start Date End Date Petar Cervantes MD [address] [place] [address] PCP - General Internal Medicine 03/31/23 documented as of this encounter
--- OUTSIDE RECORDS SUMMARY | 2025-02-07 15:29 | XMS_ITS | Encounter Summary ---
Author Organization [employer] Address [id number] [address] [place] [address] Care Team Providers Care Depositing Machine Operator Name Role Phone Petar Cervantes MD Primary Care Provider [phone] Encounter Details Date Type Department Care Team (Late st Contact Info) Description 11/11/2020 Telephone [facility] Obstetrics[facility]Gynecology [address] [place] [address] Zaria Cisneros MA [...] and Family Once a week 04/26/2019 Attends [employer] Services More than 4 times per year [...] Answer Date Recorded Total Score 16 11/22/2019 [facility] [place] of Occupat ional Health - Occupational Stress [...] Telephone Encounter - Zaria Cisneros MA - 11/11/2020 3:16 PM EDT TOTAL ABDOMINAL HYSTERECTOMY November @ 11AM PAT: October @ 9AM COVID: November @ 9AM documented in this encounter Plan of Treatment Not on file documented as of this encounter Visit Diagnoses Not on filedocumented in this encounter Additional Health Concerns Assessment Noted Time PHQ-9 Depression Total Score: 16 020 1:00 PM EDT A Body Mass Index follow-up plan has been documented for the patient 10/31/2019 12:43 PM EDT documented as of this encounter Care Teams Depositing Machine Operator Relationship Specialty Start Date End Date Petar Cervantes MD [address] [facility] [place] [address] PCP - General Internal Medicine 03/31/23 documented as of this encounter
--- OUTSIDE RECORDS SUMMARY | 2025-02-07 15:29 | XMS_ITS | Encounter Summary ---
Author Organization [employer] Address [id number] [address] [place] [address] Care Team Providers Care Manager Personal Name Role Phone Petar Cervantes MD Primary Care Provider [phone] Encounter Details Date Type Department Care Team (Late st Contact Info) Description 12/01/2020 Telephone [facility] Family Medicine [address] [place] [address] [place] [address] Nava Simmons CMA Social History [...] and Family Once a week 04/26/2019 Attends Mandaeism Services More than 4 times per year [...] Answer Date Recorded Total Score 16 11/22/2019 [facility] [place] of Occupat ional Health - Occupational Stress [...] have Coronavirus / COVID-19? No / Unsure 12/03/2020 9:16 AM EDT documented as of this encounter Miscellaneous Notes * Telephone Encounter - Nava Simmons CMA - 12/01/2020 2:11 PM EDT ----- Message from AARTI River sent at 12/01/2020 1:53 PM EDT ----- COVID-not detected * Telephone Encounter - Nava Simmons CMA - 12/01/2020 2:11 PM EDT Informed patient she verbalized understanding. documented in this encounter Plan of Treatment Not on file documented as of this encounter Visit Diagnoses Not on filedocumented in this encounter Additional Health Concerns Assessment Noted Time PHQ-9 Depression Total Score: 16 020 1:00 PM EDT A Body Mass Index follow-up plan has been documented for the patient 10/31/2019 12:43 PM EDT documented as of this encounter Care Teams Manager Personal Relationship Specialty Start Date End Date Petar Cervantes MD [address] [facility] [place] [address] PCP - General Internal Medicine 03/31/23 documented as of this encounter
--- NOTE | 2025-02-07 15:38 | ECG_ITS ---
[facility] Test Date: 2025-02-07 Pat Name: JAZLYN BARCLAY Department: Room: - Gender: Female Drosser: : 1980 Requested By: Order Number: [id number] Reading MD: TERESA ALEXANDER M.D. Measurements Intervals [place] Rate: 107 P: 40 AR: 144 QRS: 53 QRSD: 74 T: 23 QT: 306 QTc: 369 Interpretive Statements 1120 Sinus tachycardia 4068 Nonspecific Twave abnormality 9140 abnormal rhythm ECG Compared to ECG 10/28/2022 10:53:13 Sinus rhythm no longer present Electronically Signed On 02-07-2025 19:55:20 EDT by TERESA ALEXANDER M.D.
--- NOTE | 2025-02-07 15:40 | CT_ITS ---
[address] [address] Patient Name: JAZLYN BARCLAY MRN: [id number] date: 1980 Sex: F Assigned Patient Location: ED.MAIN Current Patient Location: ED.MAIN Accession/Order Number: [id number] Exam Date: 02/07/2025 16:35 Report Date: 02/07/2025 17:23 At the request of: ASHLEY PARTIDA Procedure: CT abdomen pelvis w con CT abdomen pelvis w con 02/07/2025 4:51 PM SIGNS AND SYMPTOMS: Right flank pain, fever TECHNIQUE: Multidetector ct axial images of the abdomen and pelvis were obtained with IV contrast. Multiplanar reformats were performed and reviewed to further define anatomy and possible pathology. CT was performed with one or more of the following dose reduction techniques: Automated exposure control, adjustment of the mA and/or kV according to patient size, or use of iterative reconstruction technique. COMPARISON: None. FINDINGS: Lower Chest: Within normal limits. ABDOMEN: Liver: Within normal limits. Bile Ducts: Normal caliber. Gallbladder: No calcified gallstones. Normal caliber wall. Pancreas: Within normal limits. Spleen: Within normal limits. Adrenals: Within normal limits. Kidneys: There is simple cyst in the left renal cortex requiring no further follow-up. Heterogeneous areas of hypoenhancement are noted in the right kidney with perinephric fat stranding suspicious for acute pyelonephritis. There is a 3 mm nonobstructing stone in the right renal collecting system. Pelvis: Reproductive Organs: No pelvic masses. Ureters: There is fat stranding along the right ureter which may be malignant infectious. Bladder: Within normal limits. Bowel: Normal caliber. There is a normal appendix in the right lower quadrant. Mesenteric Lymph Nodes: No enlarged mesenteric lymph nodes. Peritoneum: No ascites or free air, no fluid collection. Vessels: within normal limits Retroperitoneum: Within normal limits. Abdominal Wall: Within normal limits. Bones: Degenerative changes are noted in the thoracolumbar spine and sacroiliac joints. CT/CT abdomen pelvis w con IMPRESSION: Findings suggest acute pyelonephritis on the right with fat stranding extending inferiorly along the right ureter. There is a 3 mm nonobstructing stone in the right renal collecting system. No bowel obstruction or obstructive uropathy. Impression dictated by: Oleg Cortez M.D. 02/07/2025 5:23 PM Dictation Location: [place] [address] Electronically authenticated by: [id number] Y Date: 02/07/2025 17:23
--- NOTE | 2025-02-07 15:43 | ED_ITS ---
HPI HPI - General Adult General Chief complaint: Urogenital-Female Stated complaint: UTI Time Seen by Provider: 02/07/25 15:23 Source: patient Mode of arrival: walk-in Limitations: no limitations History of Present Illness HPI narrative: Patient has 2-week history of urinary symptoms she has been trying to use [id number] medications and cranberry juice. Patient took Tylenol this mo rning around 5 days take no additional medications today. Patient has feeling hot, cold, decreased appetite, right abdomen and flank pain, pain with urination. Patient denies any vomiting, urinary bleeding. Symptoms moderate in severity nothing improves symptoms. Motion, touch, changing position, urination make symptoms worse. Onset (ago): week(s) (2) Location: Reports abdomen Radiation: Reports back and flank Severity: moderate Relieving factors: Reports none Exacerbating factors: Reports movement Treatments prior to arrival: Reports other (Tylenol and OTC meds patient recently prescribed Macrobid) Related Data Previous Rx's ?Medication ?Instructions ?Recorded diclofenac sodium 75 mg 75 mg PO BID PRN pain #14 ta bs 12/19/23 tablet,delayed release orphenadrine citrate 100 mg 100 mg PO BID PRN muscle s pasm #14 12/19/23 tablet,extended release tabs cephalexin 500 mg capsule 500 mg PO BID 10 days #20 ca ps 02/07/25 ibuprofen 600 mg tablet 600 mg PO TID PRN pain #20 t abs 02/07/25 Allergies Allergy/AdvReac Type Severity Reaction Status Date / Time No Known Drug Allergies Allergy Verified 03/26/23 10:17 Opioid HPI Opioid Management Most Recent Opioid Data: Last Pain Scale 6 Today, 16:11 Last MAR Pain Assessment Today, 16:11 Review of Systems ROS Status of ROS 10 or more systems reviewed and unremark able except as noted in history and below Constitutional Reports: fever and chills Eyes Denies: change in vision Ears, nose, mouth, and throat Reports: neck pain Cardiovascular Denies: chest pain or edema Respiratory Denies: shortness of breath or cough Gastrointestinal Reports: abdominal pain and nausea Genitourinary Reports: painful urination Musculoskeletal Reports: back pain Neurological Denies: headache Psychiatric Denies: anxiety Hematologic/Lymphatic Denies: easy bruising Allergic/Immunologic Denies: hives [facility] Medical History (Updated 02/07/25 @ 17:54 by HELGA MARIE II) COVID-19 ?U07.1 - COVID-19 (ICD-10) Equinus contracture of right ankle ?M24.571 - Contracture, right ankle (ICD-10) Plantar fasciitis of right foot ?M72.2 - Plantar fascial fibromatosis (ICD-10) Surgical History (Updated 10/28/22 @ 10:42 by Mariola Holcomb NP) History of wisdom tooth extraction ?K08.409 - Partial loss of teeth, unspecified cause, unspecified class (ICD- 10) History of laparoscopy ?Z98.890 - Other specified postprocedural states (ICD-10) History of bilateral salpingectomy ?Z90.79 - Acquired absence of other genital organ(s) (ICD-10) History of endometrial ablation ?Z98.890 - Other specified postprocedural states (ICD-10) History of hysterectomy ?Z90.710 - Acquired absence of both cervix and uterus (ICD-10) Family History (Updated 10/28/22 @ 10:42 by Mariola Holcomb NP) Other Clear cell sarcoma Family history of breast cancer Family history of diabetes mellitus Family history of heart disease Family history of hypertension Family history of lung cancer Family history of prostate cancer Social History (Updated 10/28/22 @ 10:38 by Mariola Holcomb NP) Within the past year, how often did you have a drink containing alcohol: 2-4 times a month Smoking status: Never smoker Non-prescribed substance use: denies use 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 Highest level of school completed/degree received: high school graduate Little interest or pleasure in doing things: not at all Feeling down, depressed, or hopeless: not at all Exam Constitutional Vital Signs, click to edit/add: Last Vital Signs Temp 99.9 F 02/07/25 16:53 Pulse 99 H 02/07/25 17:30 Resp 19 02/07/25 16:50 BP 114/65 02/07/25 15:25 Pulse Ox 96 02/07/25 15:25 O2 Del Method Room Air 02/07/25 15:25 Documenting provider has reviewed patient's vital signs: yes Common normals: no apparent distress and oriented x3 Exam limitations: no altered mental status Orientation/consciousness: Yes awake HENMT Common normals: normocephalic Face and sinus: normal facial exam Nose: external nose normal External auditory canal: EACs normal Tympanic membrane: TMs normal bilaterally Mouth: other (dry oral mucosa) Eye Common normals: PERRL Neck & C-Spine Common normals: full ROM and supple General: trachea midline Cervical spine: cervical ROM normal; cervical ROM not abnormal, no pain with cervical ROM and no cervical spine tenderness (Negative tenderness including flexion extension bilateral rotation) Chest Common normals: palpation of chest normal Chest: symmetrical chest wall rise; no tenderness Respiratory Common normals: normal respiratory effort, no use of accessory muscles and clear to auscultation bilaterally Effort & inspection: able to speak in complete sentences Auscultation: no crackles, no rales and no rhonchi Cardio Common normals: regular rhythm, S1 normal heart sound, S2 normal heart sound and peripheral pulses 2+ throughout Rate: regular rate (Tachycardia) GI Common normals: soft to palpation Inspection: normal to inspection; no abdominal distension Auscultation: normoactive bowel sounds Palpation: soft and tender Details: RUQ Back & Pelvis Common normals: thoracic and lumbar spine normal to inspection, no thoracic nor lumbar tenderness and thoraco-lumbar ROM normal General back: CVA tenderness CVA tenderness: right Extremity Common normals: normal to inspection, full ROM and no pedal edema Neuro Common normals: oriented x3 and moves all extremities Psych Common normals: mental status grossly normal, thought process normal, cooperative, affect normal and speech normal Course Reevaluation(s) Reevaluation #1: On reevaluation at 1715 hrs. Patient feels better no longer feels hot or cold. Heart rate 98 to 104 bpm with fluids running. Rocephin completed patient's back pain is improved. We await CT report. Reevaluation #2: Patient heart rate improved to 95-100. Fluids continue Rocephin completed. P atient feels better. Patient refuses recommended admission will sign out AMA see MDM for discussion Time: 17:49 Vital Signs Vital signs: Vital Signs Temperature 100.8 F H 02/07/25 15:25 Pulse Rate 120 H 02/07/25 15:25 Respiratory Rate 18 02/07/25 15:25 Blood Pressure 114/65 02/07/25 15:25 Pulse Oximetry 96 02/07/25 15:25 Oxygen Delivery Method Room Air 02/07/25 15:25 Temperature 99.9 F 02/07/25 16:53 Pulse Rate 99 H 02/07/25 17:30 Respiratory Rate 19 02/07/25 16:50 Blood Pressure 114/65 02/07/25 15:25 Pulse Oximetry 96 02/07/25 15:25 Oxygen Delivery Method Room Air 02/07/25 15:25 Medical Decision Making MDM Narrative Medical decision making narrative: Patient has 2-week history of symptoms. Rule out sepsis order set including fluids at 30 mL/kg Rocephin as patient has history of UTI with flank pain and possible pyelonephritis. Will also have CT abdomen pelvis with contrast. Patient only taking Tylenol most recent dose this morning at 530. Feeling hot and cold throughout the day decreased appetite. Patient did get Macrobid yesterday took 3 doses. Patient still having symptoms. Patient improving feels better fever improved heart rate improved fluids running Rocephin completed. Patient alert and oriented x 4. Refuses recommended admission for kidney stone, pyelonephritis, early sepsis. We discussed risks and benefit to include morbidity mortality up to include worsening of symptoms including increased pain, kidney stone causing increasing pain. Sepsis. Loss of ADLs to include toileting and feeding self. Loss of pleasureable activity, which is up to including . we discussed this, in detail, twice. Patient understands has no further questions. We discussed at length we will provide medications for patient for home to include Keflex ibuprofen 600 every 8 hours she is to add Tylenol. Drink plenty of fluids. She will follow-up with her primary care we referred her to urology on-call. If she worsens she is to return to ER immediately. Patient understands AMA understands risks and benefits refuses recommend admission wants discharged home. Differential Diagnosis Differential Diagnosis: Pyelonephritis, UTI, abdominal pain Medical Records Medical records narrative: Reviewed patient's ER visits including back pain UTI. Lab Data Lab results reviewed: Yes I reviewed the patient's lab results Labs: Lab Results 02/07/25 02/07/25 02/07/25 Range/Units 15:49 16:00 16:02 WBC 13.6 H (4.0-11.0) 10^3/uL RBC 4.72 (4.20-5.40) 10^6/uL Hgb 14.1 (12.0-16.0) g/dL Hct 42.9 (36.0-48.0) % MCV 90.9 (81.0-99.0) fL MCH 29.9 (26.7-34.0) pg MCHC 32.9 (29.9-35.2) g/dL RDW 13.8 (11.0-15.0) % Plt Count 170 (150-450) 10^3/uL MPV 12.3 (9.5-13.5) fL Neut % (Auto) 81.9 H (43.0-75.0) % Lymph % (Auto) 9.4 L (20.5-60.0) % [place] % (Auto) 8.0 (1.7-12.0) % Eos % (Auto) 0.1 L (0.9-7.0) % Baso % (Auto) 0.2 (0.2-2.0) % Neut # (Auto) 11.2 H (1.4-6.5) 10^3/uL Lymph # (Auto) 1.3 (1.2-3.8) 10^3/uL [place] # (Auto) 1.1 H (0.3-0.8) 10^3/uL Eos # (Auto) 0.0 (0.0-0.7) 10^3/uL Baso # (Auto) 0.0 (0.0-0.1) 10^3/uL Abs Immat Gran (auto) 0.05 H (0.00-0.03) 10^3/uL Imm/Tot Granulo (auto) 0.4 (0.0-0.5) % Sodium 138 (136-145) mmol/L Potassium 3.6 (3.5-5.1) mmol/L Chloride 101 (98-107) mmol/L Carbon Dioxide 23.6 (21.0-32.0) mmol/L Anion Gap 17.0 BUN 8.0 (7.0-18.0) mg/dL Creatinine 0.87 (0.55-1.02) mg/dL Est GFR ( Amer) >60 (>=60 mL/min/1.73m^2) Est GFR (Non-Af Amer) >60 (>=60 mL/min/1.73m^2) BUN/Creatinine Ratio 9.2 Glucose 98 (74-106) mg/dL Lactate 1.2 (0.4-2.0) mmol/L Calcium 8.7 (8.5-10.1) mg/dL Total Bilirubin 0.9 (0.2-1.0) mg/dL AST 28 (15-37) U/L ALT 48 (14-59) U/L Alkaline Phosphatase 84 (46-116) U/L Total Protein 7.9 (6.4-8.2) g/dL Albumin 3.4 (3.4-5.0) g/dL Globulin 4.5 g/dL Albumin/Globulin Ratio 0.8 Urine Color Yellow (YELLOW) Urine Clarity Clear (CLEAR) Urine pH 5.5 (5.0-9.0) Ur Specific [place] 1.020 (1.005-1.025) Urine Protein 100 A (NEG/TRACE) mg/dL Urine Glucose (UA) Negative (NEGATIVE) mg/dL Urine Ketones 40 A (NEGATIVE) mg/dL Urine Occult Blood Small A (NEGATIVE) Urine Nitrite Negative (NEGATIVE) Urine Bilirubin Small A (NEGATIVE) Urine Urobilinogen 1.0 (0.2-1.0) EU/dL Ur Leukocyte Esterase Trace A (NEGATIVE) Urine RBC 5-10 A (0-2) #/HPF Urine WBC 10-20 A (NONE SEEN) #/HPF Ur Squamous Epith Cells Few A (NONE/RARE) #/LPF Urine Crystals None seen (None Seen) #/HPF Urine Bacteria Moderate A (NONE SEEN) #/HPF Urine Casts None seen (NONE SEEN) #/LPF Urine Mucus Large A (NONE SEEN) Ur Culture Indicated? [place] [place] Glucose 90 (74-106) mg/dL Imaging Data CT scan - abdomen: Radiologist's impression: ITS Impressions Abdomen/Pelvis CT 02/07/25 15:40 IMPRESSION: Findings suggest acute pyelonephritis on the right with fat stranding extending inferiorly along the right ureter. There is a 3 mm nonobstructing stone in the right renal collecting system. No bowel obstruction or obstructive uropathy. Impression dictated by: Oleg Cortez M.D. 02/07/2025 5:23 PM Dictation Location: [place] [address] Electronically authenticated by: [id number] Y Date: 02/07/2025 17:23 ECG Data Interpretation: EKG my interpretation sinus tachycardia rate 107 [place] interval 144 ms QRS 74 ms QTc 369 ms. Discharge Plan Discharge Stand Alone Forms: Portal Instructions Chief Complaint: Urogenital-Female Clinical Impression: Pyelonephritis, Kidney stone on right side, SIRS (systemic inflammatory response syndrome), Acute flank pain Patient Disposition: Left Against Medical Advice Time of Disposition Decision: 17:54 Condition: Good Mode of Transportation: Private Vehicle Prescriptions / Home Meds: New cephalexin 500 mg capsule 500 mg PO BID 10 Days Qty: 20 0RF ibuprofen 600 mg tablet 600 mg PO TID PRN (Reason: pain) Qty: 20 0RF No Action diclofenac sodium 75 mg tablet,delayed release (DR/EC) 75 mg PO BID PRN (Reason: pain) Qty: 14 0RF orphenadrine citrate 100 mg tablet extended release 100 mg PO BID PRN (Reason: muscle spasm) Qty: 14 0RF Print Language: Macedonian Instructions: Kidney Stones (ED), Low Oxalate Diet (ED), Kidney Infection (ED), Abdominal Pain (ED), Flank Pain (ED) Additional Instructions: Follow-up with primary care and urology. Return to ER if any symptoms worsen or new symptoms develop. May use Tylenol as directed on packaging for additional pain control or fever control. Referrals: Matthew Huddleston MD [Physician, Urology] - As soon as possible Petar Cervantes ND [Primary Care Provider] - 1 week
[2025-02-07] MEDS: 0.9 % SODIUM CHLORIDE 1,503 ML 501 ML IV (16:11)
[2025-02-07] MEDS: KETOROLAC TROMETHAMINE 30 MG/ML VIAL IVP (16:11)
[2025-02-07 16:12] LABS: Hematocrit 42.9 % (36.0-48.0); Hemoglobin 14.1 g/dL (12.0-16.0); Immature Granulocytes Abs Auto 0.05 10^3/uL (0.00-0.03); Immature Granulocytes Pct Auto 0.4 % (0.0-0.5); Lymphocytes Absolute Auto 1.3 10^3/uL (1.2-3.8); Mean Corpuscular HGB Conc 32.9 g/dL (29.9-35.2); Mean Corpuscular Hemoglobin 29.9 pg (26.7-34.0); Mean Corpuscular Volume 90.9 fL (81.0-99.0); Platelet Count 170 10^3/uL (150-450); Red Blood Count 4.72 10^6/uL (4.20-5.40); White Blood Count 13.6 10^3/uL (4.0-11.0)
[2025-02-07 16:14] LABS: Glucose Urine UA NEGATIVE (NEGATIVE)
[2025-02-07 16:26] LABS: Alanine Aminotransferase 48 U/L (14-59); Albumin Globulin Ratio 0.8; Albumin Level 3.4 g/dL (3.4-5.0); Alkaline Phosphatase 84 U/L (46-116); Anion Gap 17.0; Aspartate Amino Transferase 28 U/L (15-37); Blood Urea Nitrogen 8.0 mg/dL (7.0-18.0); Calcium 8.7 mg/dL (8.5-10.1); Carbon Dioxide 23.6 mmol/L (21.0-32.0); Chloride 101 mmol/L (98-107); Estimated GFR (African America >60 (>=60 mL/min/1.73m^2); Estimated GFR (Non-African Ame >60 (>=60 mL/min/1.73m^2); Globulin 4.5 g/dL; Glucose 98 mg/dL (74-106); Potassium 3.6 mmol/L (3.5-5.1); Sodium 138 mmol/L (136-145); Total Protein 7.9 g/dL (6.4-8.2)
[2025-02-07 16:28] LABS: Cast Seen? NONE SEEN #/LPF (NONE SEEN); Crystals Seen? None Seen #/HPF (None Seen); Urine Culture Indicated YES-FRMC
[2025-02-07 16:30] LABS: Lactate/Lactic Acid 1.2 mmol/L (0.4-2.0)
== END 2025-02-07 18:35 | disposition left against medical advice (07) ==
PROVIDERS: Physician Assistant; Emergency Provider Emergency Medicine; PCP Student in an Organized Health Care Education/Training Program
DX: N20.0 Calculus of kidney (principal); Z53.29 Procedure and treatment not carried out because of patient's decision for other reasons; R65.10 Systemic inflammatory response syndrome (SIRS) of non-infectious origin without acute organ dysfunction; R10.9 Unspecified abdominal pain
CPT/HCPCS: 36415; 74177; 80053; 81001; 83605; 85025; 87040; 87086; 93005; 96365; 96375; 99285; J0696; J1885; Q9967